=== PATIENT | female | born 1945 | race Caucasian/White ===

== ENCOUNTER 2018-01-05 21:38 | Emergency (ER) | payer MEDICARE ==
[~2018-01-05] VITALS: Ht 165.1 cm; Wt 87.1 kg
[~2018-01-05 21:38] MED LIST: BACTRIM DS TAB1 EACH PO; HYDROCHLOROTHIA25 MG PO; LISINOPRIL40 MG PO; MELOXICAM15 MG PO; METOPROLOL TART25 MG PO; NEXIUM40 MG PO; NORVASC10 MG PO; PANTOPRAZOLE SO40 MG PO; PRAVASTATIN SOD20 MG
[2018-01-05] MEDS ORDERED: ACETAMINOPHEN 325 MG TAB PO ONE (22:00)
--- NOTE | 2018-01-05 23:05 | Diagnostic Imaging Report ---
Examination: CT BRAIN WITHOUT CONTRAST History:Headache. Comparison studies:None Technique: Axial images were obtained from the skull base to the vertex. Coronal and sagittal images reconstructed from the axial data. Intravenous contrast: None Findings: Scalp: No abnormalities. Bones: No fractures, blastic or lytic lesions. Brain sulci: Appropriate for age. Ventricles: Normal in size and configuration. No hydrocephalus. Extra-axial space: No abnormalities. Parenchyma: No masses, hemorrhage, or acute or chronic cortical based vascular insults. Sellar/suprasellar region: No abnormalities. Craniocervical junction: Patent foramen magnum. No Chiari one malformation. Incidental findings: None. Impression: No intracranial abnormalities. Signed by: Dr. Shanna Pierce M.D. on 01/05/2018 11:02 PM
[2018-01-05 23:27] VITALS: BP 139/87
== END 2018-01-05 23:37 | disposition home or self-care (01) ==
LOC: ER 21:38
DX: G44.1 Vascular headache, not elsewhere classified (principal); I10 Essential (primary) hypertension; M19.90 Unspecified osteoarthritis, unspecified site; I49.1 Atrial premature depolarization; K21.0 Gastro-esophageal reflux disease with esophagitis
CPT/HCPCS: 70450; 93005; 99284

== ENCOUNTER 2018-04-22 22:29 | Observation (INO) | payer MEDICARE ==
[~2018-04-22] VITALS: Ht 165.1 cm; Wt 85.9 kg
[2018-04-22 22:59] LABS: BASOPHILS # (AUTO) 0.1 (0.0-0.1); BASOPHILS % 0.6 % (0.0-1.0); EOSINOPHILS # (AUTO) 0.2 (0.0-0.4); EOSINOPHILS % 2.4 % (0.0-6.0); HEMATOCRIT 35.7 % (34.2-44.1); HEMOGLOBIN 11.9 g/dL (12.0-16.0); LYMPHOCYTES # (AUTO) 4.1 (1.0-3.2); LYMPHOCYTES % 41.6 % (18.0-39.1); MEAN CORPUSCULAR HEMOGLOBIN 29.2 pg (28-32); MEAN CORPUSCULAR HGB CONC 33.3 g/dL (31-35); MEAN CORPUSCULAR VOLUME 87.7 fL (81-99); MONOCYTES # (AUTO) 0.9 (0.2-0.8); MONOCYTES % 8.6 % (4.4-11.3); NEUTROPHILS # (AUTO) 4.6 (2.1-6.9); NEUTROPHILS % 46.3 % (38.7-80.0); PLATELET COUNT 265 x10e3/uL (140-360); RED BLOOD COUNT 4.07 x10e6/uL (3.6-5.1); RED CELL DISTRIBUTION WIDTH 13.2 % (11.7-14.4)
[2018-04-22 23:10] LABS: INR 1.07; PROTHROMBIN TIME 13.1 seconds (11.9-14.5)
[2018-04-22 23:11] LABS: PARTIAL THROMBOPLASTIN TIME 33.9 seconds (23.8-35.5)
[2018-04-22 23:17] LABS: CLARITY,URINE CLEAR (CLEAR); COLOR,URINE YELLOW (YELLOW); LEUKOCYTE ESTERASE ,URINE 1+ (NEGATIVE); NITRITE,URINE NEGATIVE (NEGATIVE); PROTEIN,URINE DIPSTICK NEGATIVE (NEGATIVE)
[2018-04-22 23:18] LABS: BILIRUBIN,URINE NEGATIVE (NEGATIVE); KETONES,URINE NEGATIVE (NEGATIVE); URINE UROBILINOGEN 0.2 mg/dL (0.2 - 1)
[2018-04-22 23:19] LABS: ALANINE AMINOTRANSFERASE 16 IU/L (0-55); ALBUMIN 4.2 g/dL (3.5-5.0); ALBUMIN/GLOBULIN RATIO 1.2 (0.8-2.0); ALKALINE PHOSPHATASE 82 IU/L (40-150); BLOOD UREA NITROGEN 28 mg/dL (7-26); BUN/CREATININE RATIO 22 (6-25); CALCIUM 9.6 mg/dL (8.4-10.2); CARBON DIOXIDE 23 mmol/L (22-29); CHLORIDE 100 mmol/L (98-107); CREATINE KINASE 94 IU/L (29-168); CREATININE, SERUM 1.28 mg/dL (0.57-1.11); EST GLOMERULAR FILTRATION RATE 41 ML/MIN (60-); GLUCOSE 132 mg/dL (74-118); MAGNESIUM 2.2 MG/DL (1.3-2.1); SODIUM 136 mmol/L (136-145)
[2018-04-22 23:28] LABS: BACTERIA,URINE RARE /HPF; EPITHELIAL CELLS,URINE RARE /LPF; RBC,URINE 0-5 /HPF (0-5); TRANSITIONAL EPI CELLS,URINE FEW
--- NOTE | 2018-04-22 23:39 | Diagnostic Imaging Report ---
CHEST 2 VIEWS, Technique: CHEST 2 VIEWS Comparison: None Clinical history: Chest pain DISCUSSION: PA view is overpenetrated with motion artifact limiting assessment. Cardiac silhouette is normal. Left apical pleural-parenchymal scarring. No consolidation or edema. No pleural effusion or pneumothorax. IMPRESSION: No acute abnormality Signed by: Dr Seda Henry MD on 04/22/2018 11:36 PM
[2018-04-22] MEDS ORDERED: AMLODIPINE BESY10 MG PO (23:54)
[2018-04-22] MEDS ORDERED: PRAVASTATIN SOD40 MG PO (23:54)
[2018-04-22] MEDS ORDERED: CLONIDINE HCL0.1 MG PO (23:54)
[2018-04-22] MEDS ORDERED: TERBINAFINE HC250 MG PO (23:54)
[2018-04-22] MEDS ORDERED: METOPROLOL TART50 MG PO (23:54)
[2018-04-22] MEDS ORDERED: ALPRAZOLAM0.5 MG PO (23:54)
[2018-04-23] VITALS (10 sets, daily range): BP systolic 130–191; BP diastolic 62–87
[2018-04-23] MEDS ORDERED: NITROGLYCERIN 2% OINT 1 GM PKT ONE (00:04)
[2018-04-23] MEDS: NITROGLYCERIN 2% OINT 1 GM PKT TOP SCH ×4 (00:07→18:00)
[2018-04-23] MEDS ORDERED: ONDANSETRON HCL INJ 2 MG/ML VIAL IV PRN (00:15)
[2018-04-23] MEDS ORDERED: FAMOTIDINE 20 MG/2 ML VIAL IV SCH ×2 (00:15→09:00)
[2018-04-23] MEDS ORDERED: MORPHINE SULFATE 2 MG/ML SYR IV PRN (00:15)
[2018-04-23 06:57] LABS: BASOPHILS # (AUTO) 0.1 (0.0-0.1); BASOPHILS % 0.6 % (0.0-1.0); EOSINOPHILS # (AUTO) 0.1 (0.0-0.4); EOSINOPHILS % 1.6 % (0.0-6.0); HEMATOCRIT 35.3 % (34.2-44.1); HEMOGLOBIN 11.6 g/dL (12.0-16.0); LYMPHOCYTES # (AUTO) 2.6 (1.0-3.2); LYMPHOCYTES % 30.4 % (18.0-39.1); MEAN CORPUSCULAR HEMOGLOBIN 28.9 pg (28-32); MEAN CORPUSCULAR HGB CONC 32.9 g/dL (31-35); MONOCYTES # (AUTO) 0.7 (0.2-0.8); MONOCYTES % 7.9 % (4.4-11.3); NEUTROPHILS # (AUTO) 5.1 (2.1-6.9); NEUTROPHILS % 59.2 % (38.7-80.0); PLATELET COUNT 251 x10e3/uL (140-360); RED BLOOD COUNT 4.01 x10e6/uL (3.6-5.1); RED CELL DISTRIBUTION WIDTH 13.2 % (11.7-14.4)
[2018-04-23 07:21] LABS: CREATINE KINASE MB 1.1 ng/mL (0-5.0)
[2018-04-23 08:02] LABS: ALBUMIN 3.7 g/dL (3.5-5.0); ALBUMIN/GLOBULIN RATIO 1.2 (0.8-2.0); ANION GAP 12.1 mmol/L (8-16); CALCIUM 9.6 mg/dL (8.4-10.2); CREATININE, SERUM 0.96 mg/dL (0.57-1.11); POTASSIUM 4.1 mmol/L (3.5-5.1)
[2018-04-23] MEDS: ASPIRIN 81 MG ENTERIC COATED PO SCH (09:58)
[2018-04-23] MEDS: LEVOFLOXACIN 250 MG TAB PO SCH (12:04)
[2018-04-23] MEDS: CLONIDINE HCL 0.1 MG TAB PO PRN ×2 (12:10→20:16)
--- NOTE | 2018-04-23 12:41 | History and Physical ---
Patient of , Dr. Lizarraga. HISTORY: Unfortunate 72-year-old woman admitted with chest pain, similar but worse than the pain she had 4 years ago. She felt flushed. The pain was across the precordium and was felt tight. Blood pressure is moderately elevated on arrival to the emergency room at 170, even after she took clonidine. History of hyperlipidemia. History of coccygectomy, history of nocturnal hypertension. 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 MEDICATIONS: Include Xanax, amlodipine, Lopressor, clonidine, Pravachol, Lamisil. Pain occurred at work, approximately 9:30 in the evening and was taken by EMS to the ER. History of hypertension, gastroesophageal reflux, urgency, incontinence, anxiety. ALLERGIES: TO PENICILLIN. PHYSICAL EXAMINATION VITAL SIGNS: Temperature 96.4, pulse 55, respirations 18, blood pressure 139/70. HEENT: Head: Normocephalic, atraumatic. Eyes: Extraocular movements are intact. LUNGS: Clear. HEART: Regular rhythm. She has also been nontender. EXTREMITIES: Nonedematous. There is suggestion of urinary tract infection, atypical angina-like chest pain. Will request cardiology re-evaluation. Patient apparently has had stress test in the past, but this was some 4 years ago. Thank you for this kind referral. Job#: [id number] TA cc:DR. LIZARRAGA
--- NOTE | 2018-04-23 14:13 | Consultation ---
DATE OF CONSULTATION: April 23, 2018 CARDIOLOGY CONSULTATION Thank you, Dr. Snow, for this consultation. I am quite familiar with Daisha through her admission to this hospital 4 years ago, but I have not seen her since that time. According to her, she was healthy except the time she was admitted to [facility] from different problems. Patient at this time does not have chest pain. She admitted because yesterday was at [facility] 9:30 p.m., she had some substernal pain, but after coming into the hospital patient's chest pain completely disappeared. Patient has history of hiatal hernia and also hypertension, still mildly obese. She was taking Norvasc and lisinopril at home. Patient never had history of myocardial infarction. Four years ago coronary angiogram did not show significant lesions. Patient did not have any stroke or heart attack. Nonsmoker, no history of lung problems. No abdominal surgeries. Only surgery, she got surgery in the coccyx bone. PATIENT HAS NO SIGNIFICANT ALLERGIES, ALSO. At this time blood pressure is about 160/85 mmHg, and clinically patient is very stable. The plan at this time is to keep her today. If she has no chest pain, blood pressure is fairly well controlled less than 140/90, patient will be discharged tomorrow; but if there is any recurrent chest pain, probably will have to keep her in the hospital. If she goes home tomorrow, will do a stress test as an outpatient at [facility] either Thursday or Thursday that I also discussed with her. IMPRESSION 1. Chest pain, rule out ischemic heart disease. 2. Hypertension. 3. Patient is stable at this time. Four years ago coronary angiogram did not show significant lesions. PLAN: At this time keep her on observation and no chest pain. Enzymes are normal, which are normal so far. EKG is also normal, and echo ejection fraction 65% and no evidence of pericardial effusion, pericarditis. Patient will be discharged tomorrow, will bring back as an outpatient for stress test. Job#: [id number] APARNA
[2018-04-23] MEDS: METOPROLOL TARTRATE 50 MG TAB PO SCH (17:55)
[2018-04-23] MEDS: FAMOTIDINE 20 MG TAB PO SCH (17:56)
--- NOTE | 2018-04-23 18:33 | Diagnostic Imaging Report ---
PROCEDURE:US ABDOMEN LIMITED COMPARISON:None. INDICATIONS:EVALUATE GB TECHNIQUE: Garza-scale and color Doppler transverse and longitudinal images of the right upper quadrant of the abdomen were obtained. FINDINGS: Liver: 17.7 cm in right mid-clavicular line, enlarged. Normal echogenicity. No masses. Main portal vein: 1.1 cm, normal in size. Hepatopetal flow. Gallbladder: Wall measures 0.2 cm, normal. No stones or sludge. Common Bile Duct: 0.2 cm, normal Sonographic Bowman's sign: Negative Right kidney: 11.2 cm. Normal echogenicity. No solid masses or hydronephrosis. Interpolar 1.1 x 1.2 x 1.1 cm anechoic cyst with a single thin septation. Pancreas: The visualized portions are unremarkable. Inferior vena cava: Patent Aorta: Within normal limits Ascites: None in the right upper quadrant of the abdomen. CONCLUSION: No evidence of cholelithiasis or cholecystitis. Hepatomegaly. Minimally complex cyst in the right kidney. Dictated by: Piyush Ha M.D. on 04/23/2018 at 18:38 Electronically approved by: Piyush Ha M.D. on 04/23/2018 at 18:38
[2018-04-23] MEDS: SIMVASTATIN 20 MG TAB PO SCH (20:16)
[2018-04-23] MEDS: ENOXAPARIN INJ 80 MG/0.8 ML SYR SC SCH (20:16)
[2018-04-23] MEDS ORDERED: NON-FORMULARY MEDICATION (Pravastatin Sodium 40 MG) PO SCH (21:00)
[2018-04-23] MEDS: ALPRAZOLAM 0.5 MG TAB PO PRN (23:06)
[2018-04-24] VITALS (9 sets, daily range): BP systolic 118–196; BP diastolic 58–83
[2018-04-24] MEDS: NITROGLYCERIN 2% OINT 1 GM PKT TOP SCH ×4 (05:13→18:00)
[2018-04-24 05:44] LABS: CHOL/HDL RATIO 3.5 (3.0-3.6)
[2018-04-24] MEDS: FAMOTIDINE 20 MG TAB PO SCH ×2 (08:12→17:10)
[2018-04-24] MEDS: TERBINAFINE 250 MG TAB PO SCH (08:12)
[2018-04-24] MEDS: ASPIRIN 81 MG ENTERIC COATED PO SCH (08:12)
[2018-04-24] MEDS: LEVOFLOXACIN 250 MG TAB PO SCH (08:12)
[2018-04-24] MEDS: ENOXAPARIN INJ 80 MG/0.8 ML SYR SC SCH (08:13)
[2018-04-24] MEDS: AMLODIPINE BESYLATE 10 MG TAB PO SCH (08:13)
[2018-04-24] MEDS: METOPROLOL TARTRATE 50 MG TAB PO SCH ×2 (08:14→16:13)
[2018-04-24] MEDS: CLONIDINE HCL 0.1 MG TAB PO PRN ×2 (11:40→22:19)
[2018-04-24] MEDS: SIMVASTATIN 20 MG TAB PO SCH (21:11)
[2018-04-24] MEDS: ALPRAZOLAM 0.5 MG TAB PO PRN (22:36)
[2018-04-25] VITALS (8 sets, daily range): BP systolic 128–171; BP diastolic 61–78
[2018-04-25] MEDS: NITROGLYCERIN 2% OINT 1 GM PKT TOP SCH ×3 (06:00→11:27)
[2018-04-25] MEDS: CLONIDINE HCL 0.1 MG TAB PO PRN (06:56)
[2018-04-25] MEDS: AMLODIPINE BESYLATE 10 MG TAB PO SCH (08:39)
[2018-04-25] MEDS: TERBINAFINE 250 MG TAB PO SCH (08:39)
[2018-04-25] MEDS: FAMOTIDINE 20 MG TAB PO SCH ×2 (08:39→16:30)
[2018-04-25] MEDS: ASPIRIN 81 MG ENTERIC COATED PO SCH (08:39)
[2018-04-25] MEDS: LEVOFLOXACIN 250 MG TAB PO SCH (08:39)
[2018-04-25] MEDS: METOPROLOL TARTRATE 50 MG TAB PO SCH ×2 (08:45→17:00)
[2018-04-25] MEDS ORDERED: LISINOPRIL10 MG PO (11:17)
--- NOTE | 2018-04-25 13:33 | Progress Note ---
DATE: April 25, 2018 CARDIOLOGY PROGRESS NOTE ADMITTING PHYSICIAN: Dr. Dave Asif. Patient has no chest pain, but patient was brought in from work with chest pain. Patient has some history of CAD in the past, hypertension, BP still not controlled. Patient is going to have coronary angiogram tomorrow. Troponins are normal. EKG does not have ischemic changes. Clinical symptoms are previous history of CAD, a good indication that patient may have significant coronary artery disease. At this time I am not doing a stress test because she had chest pain at rest when she came to the hospital and the patient at this time is also on aspirin and anticholesterol medications and antihypertensive medications. Discussed with her the risks and complications of coronary angiogram. Patient agrees, wants to have it done tomorrow and also coronary intervention if necessary. Job#: [id number] EV
[2018-04-25] MEDS ORDERED: ALPRAZOLAM 0.5 MG TAB PO ONE (14:00)
[2018-04-25] MEDS: SIMVASTATIN 20 MG TAB PO SCH (21:09)
[2018-04-25] MEDS: ALPRAZOLAM 0.5 MG TAB PO PRN (22:25)
[2018-04-26] VITALS (9 sets, daily range): BP systolic 135–198; BP diastolic 68–87
[2018-04-26] MEDS: NITROGLYCERIN 2% OINT 1 GM PKT TOP SCH ×3 (00:04→11:32)
[2018-04-26 04:48] LABS: BASOPHILS % 0.5 % (0.0-1.0); EOSINOPHILS # (AUTO) 0.2 (0.0-0.4); EOSINOPHILS % 2.2 % (0.0-6.0); HEMATOCRIT 35.4 % (34.2-44.1); HEMOGLOBIN 11.5 g/dL (12.0-16.0); LYMPHOCYTES # (AUTO) 3.1 (1.0-3.2); LYMPHOCYTES % 42.4 % (18.0-39.1); MEAN CORPUSCULAR HEMOGLOBIN 28.8 pg (28-32); MEAN CORPUSCULAR HGB CONC 32.5 g/dL (31-35); MEAN CORPUSCULAR VOLUME 88.5 fL (81-99); MONOCYTES # (AUTO) 0.7 (0.2-0.8); MONOCYTES % 9.5 % (4.4-11.3); NEUTROPHILS # (AUTO) 3.3 (2.1-6.9); PLATELET COUNT 258 x10e3/uL (140-360); RED CELL DISTRIBUTION WIDTH 13.2 % (11.7-14.4)
[2018-04-26 05:05] LABS: ANION GAP 13.3 mmol/L (8-16); CALCIUM 9.7 mg/dL (8.4-10.2); CREATININE, SERUM 1.09 mg/dL (0.57-1.11); POTASSIUM 4.3 mmol/L (3.5-5.1)
[2018-04-26] MEDS: FAMOTIDINE 20 MG TAB PO SCH ×2 (07:30→15:55)
[2018-04-26] MEDS ORDERED: LISINOPRIL 20 MG TAB PO SCH ×2 (09:00→16:00)
[2018-04-26] MEDS: LEVOFLOXACIN 250 MG TAB PO SCH ×2 (09:00→15:56)
[2018-04-26] MEDS: ASPIRIN 81 MG ENTERIC COATED PO SCH (09:00)
[2018-04-26] MEDS: AMLODIPINE BESYLATE 10 MG TAB PO SCH ×2 (09:00→15:56)
[2018-04-26] MEDS: METOPROLOL TARTRATE 50 MG TAB PO SCH ×2 (09:00→15:56)
[2018-04-26] MEDS: TERBINAFINE 250 MG TAB PO SCH ×2 (09:00→15:56)
[2018-04-26] MEDS ORDERED: REGADENOSON 0.4 MG/5 ML SYR IV ONE (10:55)
[2018-04-26] MEDS ORDERED: METOPROLOL TART25 MG PO (15:26)
[2018-04-26] MEDS: ALPRAZOLAM 0.5 MG TAB PO PRN (16:48)
--- NOTE | 2018-04-26 23:02 | Progress Note ---
DATE: April 26, 2018 CARDIOLOGY PROGRESS NOTE Patient is doing well. Patient underwent Lexiscan stress test today and is found to be negative. Patient denies any chest pain or any problems. Blood pressure a little higher about 150/90. However, patient is ambulatory without any cardiac complaints. Patient will be discharged with antihypertensive medication, aspirin, anticholesterol medication. Patient not in congestive heart failure. Echo EF 60%. Patient is to go home with 1. Aspirin 81 mg once a day. 2. Statin. 3. Metoprolol tartrate 25 mg b.i.d. 4. Norvasc 10 mg once a day. 5. Lisinopril 40 mg once a day. The patient is to follow with me in 1 week from now on, also follow with Dr. Snow and if any cardiac problem, he can call me or Dr. Snow. Patient advised low-fat, low-salt diet, moderate physical activities. Patient discharged in stable condition. IMPRESSIONS 1. Chest pain. 2. Negative Lexiscan stress test. History of mild coronary artery disease in the past. 3. Hypertension. 4. Hyperlipidemia. 5. Mild obesity. \T\Patient, at this time, in stable condition. Job#: [id number] CQ
--- NOTE | 2018-04-26 23:07 | Cardiology Report ---
DATE OF STUDY: April 26, 2018 NUCLEAR GATED MYOCARDIAL PERFUSION SCAN WITH LEXISCAN Lexiscan injected 0.4 mg intravenously as stress agent, and Myoview injected 10 mCi for resting protocol, 30 mCi for stress protocol. Patient did not have any chest pain. No EKG changes. Patient's nuclear stress test showed normal perfusion, left ventricular ejection fraction 65%. No evidence of ischemia or scar noted. IMPRESSION: Normal study. No ischemia or scar noted. Left ventricular ejection fraction 65%. Job#: [id number]
== END 2018-04-26 19:28 | disposition home or self-care (01) ==
LOC: ER 22:29 → ERHOLD 04-23 00:08 → IMCU 04-23 00:54 → MED/SURG 04-25 14:27
PROVIDERS: ADMIT Internal Medicine Pulmonary Disease; ATTEND Internal Medicine Pulmonary Disease
DX: R07.89 Other chest pain (principal); I10 Essential (primary) hypertension; K21.9 Gastro-esophageal reflux disease without esophagitis; E78.5 Hyperlipidemia, unspecified; E66.9 Obesity, unspecified; K44.9 Diaphragmatic hernia without obstruction or gangrene; Z88.6 Allergy status to analgesic agent; Z88.1 Allergy status to other antibiotic agents; Z88.0 Allergy status to penicillin; Z88.8 Allergy status to other drugs, medicaments and biological substances; Z68.31 Body mass index [BMI] 31.0-31.9, adult
CPT/HCPCS: 36415 ×4; 71046; 76705; 78452; 80048; 80053 ×2; 80061; 81001; 82550 ×2; 82553 ×2; 83735; 83880; 84484 ×2; 85025 ×3; 85610; 85730; 87086; 93005; 93017; 93306; 99284; A9502; G0378 ×4; J1650 ×2

== ENCOUNTER 2018-05-01 22:22 | Emergency (ER) | payer MEDICARE ==
[~2018-05-01] VITALS: Ht 165.1 cm; Wt 85.7 kg
[~2018-05-01 22:22] MED LIST changes: +ALPRAZOLAM0.5 MG PO; +AMLODIPINE BESY10 MG PO; +CLONIDINE HCL0.1 MG PO; +LISINOPRIL10 MG PO; +METOPROLOL TART50 MG PO; +PRAVASTATIN SOD40 MG PO; +TERBINAFINE HC250 MG PO
[2018-05-01] MEDS ORDERED: ASPIRIN 325 MG TAB PO STA (22:44)
[2018-05-01 23:46] LABS: BASOPHILS # (AUTO) 0.1 (0.0-0.1); BASOPHILS % 0.6 % (0.0-1.0); EOSINOPHILS # (AUTO) 0.3 (0.0-0.4); EOSINOPHILS % 3.2 % (0.0-6.0); HEMATOCRIT 36.1 % (34.2-44.1); HEMOGLOBIN 11.8 g/dL (12.0-16.0); LYMPHOCYTES # (AUTO) 2.6 (1.0-3.2); LYMPHOCYTES % 32.7 % (18.0-39.1); MEAN CORPUSCULAR HGB CONC 32.7 g/dL (31-35); MEAN CORPUSCULAR VOLUME 88.7 fL (81-99); MONOCYTES # (AUTO) 0.8 (0.2-0.8); MONOCYTES % 9.3 % (4.4-11.3); NEUTROPHILS # (AUTO) 4.3 (2.1-6.9); NEUTROPHILS % 53.7 % (38.7-80.0); PLATELET COUNT 269 x10e3/uL (140-360); RED BLOOD COUNT 4.07 x10e6/uL (3.6-5.1); RED CELL DISTRIBUTION WIDTH 13.3 % (11.7-14.4)
[2018-05-01 23:50] LABS: INR 1.07; PROTHROMBIN TIME 13.1 seconds (11.9-14.5)
[2018-05-01 23:55] LABS: CLARITY,URINE CLOUDY (CLEAR); COLOR,URINE YELLOW (YELLOW)
[2018-05-01 23:56] LABS: BILIRUBIN,URINE NEGATIVE (NEGATIVE); KETONES,URINE NEGATIVE (NEGATIVE); LEUKOCYTE ESTERASE ,URINE NEGATIVE (NEGATIVE); NITRITE,URINE NEGATIVE (NEGATIVE); PROTEIN,URINE DIPSTICK NEGATIVE (NEGATIVE); URINE UROBILINOGEN 0.2 mg/dL (0.2 - 1)
[2018-05-01 23:57] LABS: ALBUMIN 4.3 g/dL (3.5-5.0); ALBUMIN/GLOBULIN RATIO 1.2 (0.8-2.0); ANION GAP 17.7 mmol/L (8-16); CALCIUM 10.3 mg/dL (8.4-10.2); CREATININE, SERUM 1.41 mg/dL (0.57-1.11); POTASSIUM 4.7 mmol/L (3.5-5.1)
[2018-05-01 23:58] LABS: EPITHELIAL CELLS,URINE FEW /LPF; RBC,URINE 0-5 /HPF (0-5); WBC,URINE (MAN) 0-5 /HPF (0-5)
[2018-05-02 00:04] LABS: CREATINE KINASE MB 1.3 ng/mL (0-5.0)
--- NOTE | 2018-05-02 00:06 | Diagnostic Imaging Report ---
EXAM: CHEST SINGLE (PORTABLE), AP 1 view INDICATION: Hypertension COMPARISON: PA and lateral view of the chest April 22, 2018 FINDINGS: LINES/TUBES: None LUNGS: No consolidations or edema. PLEURA: No effusions or pneumothorax. HEART AND MEDIASTINUM: Normal size and contour. BONES AND SOFT TISSUES: No acute findings. IMPRESSION: No acute thoracic abnormality. Signed by: Dr. Radha Levi M.D. on 05/02/2018 12:03 AM
== END 2018-05-02 01:20 | disposition home or self-care (01) ==
LOC: ER 22:22
DX: R00.2 Palpitations (principal); N28.9 Disorder of kidney and ureter, unspecified; I10 Essential (primary) hypertension; E78.5 Hyperlipidemia, unspecified; K21.9 Gastro-esophageal reflux disease without esophagitis
CPT/HCPCS: 36415; 71045; 80053; 81001; 82550; 82553; 83735; 84443; 84484; 85025; 85610; 85730; 93005; 99284

== ENCOUNTER 2020-03-03 08:37 | Observation (INO) | payer MEDICARE ==
[~2020-03-03] VITALS: Ht 167.6 cm; Wt 85.7 kg
--- NOTE | 2020-03-03 08:40 | NUR ---
{null, PT STATES NEEDING TO CALL HER SON TO NOTIFY HIM OF ARRIVAL TO ER. PT CELL FOUND FOR HER TO CALL HER SON... }
--- OUTSIDE RECORDS SUMMARY | 2020-03-03 08:40 | XMS REPORT | Encounter Summary ---
Author Organization Unknown Address [address] [place] [address] Phone [phone] Care Team Providers Care Dish Carrier Name Role Phone Dr. Micky Ness 3 [phone] Kurtis Silva MD 82 [phone] Helena Bonilla MD 118 [phone] Reason for Visit Left hip pain/problem Instructions 1. Trochanteric bursitis of left hip Medrol (Edson) 4 mg tablets in a dose pa ck meloxicam 15 mg tablet hydrocodone 5 mg-acetaminophen 325 mg tablet 2. At risk for falls preventing falls: care instructions 3. Depression screening learning about depression 4. Hyperlipidemia pravastatin 40 mg tablet high cholesterol: care instructions 5. Postmenopausal state bone density - PLEASE CALL PATIENT AND SCHUEDLE HER AN APPOINTMENT. PLEASE FAX RESULTS TO [phone]. 6. Body mass index 30+ - obesity starting a weight loss plan: care inst ructions abnormal weight gain: care instruction s advised to lose weight learning about healthy weight body mass index: care instructions Discussion Note: None recorded. Plan of Care Reminders Provider Appointments None recorded. Lab None recorded. Referral None recorded. Procedures None recorded. Surgeries None recorded. Imaging Bone Density 11/17/2018 [facility] Medications Name Start Date amlodipine 10 mg tablet Take 0.5 tablets twice a day by oral route in the evening for 30 days. desonide 0.05 % topical cream APPLY SPARINGLY AND RUB GENTLY INTO THE AFFECTED AREA(S) BY TOPICAL ROUTE 2 TIMES PER DAY NEEDED hydrocodone 5 mg-acetaminophen 325 mg ta blet Take 1 tablet every day by oral route as needed for 7 days. lisinopril 20 mg tablet Take 0.5 tablets twice a day by oral route as directed for 30 days. Low Dose Aspirin 81 mg tablet,delayed re lease Take 1 tablet every day by oral route. Medrol (Edson) 4 mg tablets in a dose pack Take 1 dose pk by oral route. meloxicam 15 mg tablet Take 1 tablet every day by oral route as needed for 30 days. metoprolol tartrate 25 mg tablet Take 0.5 tablets twice a day by oral route as directed for 30 days. pravastatin 40 mg tablet TAKE ONE (1) TABLET(S) BY MOUTH IN THE EVENING. Medications Administered None recorded. Vitals Height Weight BMI Blood Pressure 5 ft 5 in 186 lbs 31 kg/m2 130/70 mm[Hg] Lab Results None recorded. Allergies Code Code System Name Reaction Severity Status Onset RxNorm Azithromycin Active 012 6809 RxNorm Metformin Active 02/27/2012 Penicillins Active Problems Name Status Onset Date Source Pure Hypercholesterolemia Active 05/21/2016 Body Mass Index 30+ - Obesity Active 05/21/2016 Benign Essential Hypertension Active 05/21/2016 Hyperglycemia Active 05/21/2016 Serum Creatinine Raised Active 05/21/2016 Mixed Hyperlipidemia Active 10/08/2016 Gastroesophageal Reflux Disease without Esophagitis Active 10/08/2016 Knee Pain Active 10/08/2016 Blood Chemistry Abnormal Active 10/29/2016 Prediabetes Active 03/31/2018 Hypertensive Disorder Active Chest Pain Active Procedures Date Name Performed by 07/01/2010 Colonoscopy Information not avai lable 10/27/2018 XR, Hip, Unilateral, 2 or 3 View [facility] [address] [place] [address] (Work Place) 11/17/2018 Bone Density [facility] [address] [place] [address] (Work Place) Vaccine List Vaccine Type influenza, high dose seasonal 08/10/20180.5 mL pneumococcal conjugate PCV 13 10/29/20160.5 mL pneumococcal polysaccharide PPV23 04/13/20180.5 mL Social History Smoking Status Never Smoker Past Encounters 11/17/2018 Trochanteric Bursitis of Left Hip; At Risk for Falls; Depression Screening; Hyperlipidemia; Postmenopausal State; Body Mass Index 30+ - Obesity Micky Bowen MD: [address] [place] [address], Ph. 10/27/2018 Pain of Left Hip Joint; Pain in Right Arm; Body Mass Index 30+ - Obesity; Secondary Hyperparathyroidism Micky Bowen MD: [address] [place] [address], Ph. History of Present Illness Note:Coming for f/u. Pain in left hip persists, intensity 5/10. Sharp type. Denies problems with ROM. Worse with sitting for long periods of time. X-ray showed mild joint space narrowing.
Review of Systems Comprehensive General Adult ROS Reported By: Patient Constitutional: Constitutional: no fever Cardiovascular: Cardiovascular: no chest jamari n Respiratory: Respiratory: no cough, no wh eezing, no shortness of breath Gastrointestinal: Gastrointestinal: no abdomin al pain Musculoskeletal: Musculoskeletal: no swelling in the extremities, muscle aches, arthralgias/joint pain Neurologic: Neurologic: no loss of consc iousness, no headaches Physical Exam General Adult Exam (male) Reported By: Patient Constitutional: General Appearance: healthy- appearing, obese. Level of Distress: NAD. Ambulation: ambulating normally Psychiatric: Insight: good judgement. Men vasquez Status: active and alert, normal mood, normal affect. Orientation: to time, to place, to person. Memory: recent memory normal, remote memory normal Eyes: Lids and Conjunctivae: non-i njected, no discharge Neck: Neck: trachea midline Lungs: Respiratory effort: no dyspn ea Musculoskeletal:: Motor Strength and Tone: nor mal, normal tone. Joints, Bones, and Muscles: normal movement of all extremities. Extremities: no edema Neurologic: Gait and Station: normal gai t Skin: Inspection and palpation: ; L HIP: tender with palpation at the level of the greater trochanter. Normal ROM. No deformities or crepitations
--- OUTSIDE RECORDS SUMMARY | 2020-03-03 08:40 | XMS REPORT | Encounter Summary ---
Author Organization Unknown Address [address] [place] [address] Phone [phone] Care Team Providers Care Integrity Manager Name Role Phone Dr. Micky Ness 3 [phone] Micky Baca MD 3 [phone] Helena Bonilla MD 118 [phone] Reason for Visit Left hip pain/problem Instructions 1. Pain of left hip joint XR, hip, unilateral, 2 or 3 view meloxicam 15 mg tablet hydrocodone 5 mg-acetaminophen 325 mg tablet ketorolac 60 mg/2 mL intramuscular amanda ution 2. Pain in right arm 3. Body mass index 30+ - obesity body mass index: care instructions learning about healthy weight 4. Secondary hyperparathyroidism Discussion Note: None recorded. Plan of Care Reminders Provider Appointments Est Patient 11/03/2018 11:00AM Micky Bowen MD Lab None recorded. Referral None recorded. Procedures None recorded. Surgeries None recorded. Imaging XR, Hip, Unilateral, 2 or 3 View 10/27/2018 [facility] Medications Name Start Date amlodipine 10 mg tablet Take 0.5 tablets twice a day by oral route in the evening for 30 days. citalopram 10 mg tablet Take 1 tablet every day by oral route as directed for 30 days. desonide 0.05 % topical cream APPLY SPARINGLY AND RUB GENTLY INTO THE AFFECTED AREA(S) BY TOPICAL ROUTE 2 TIMES PER DAY NEEDED hydrochlorothiazide 12.5 mg tablet hydrocodone 5 mg-acetaminophen 325 mg ta blet Take 1 tablet every day by oral route as needed for 7 days. lisinopril 20 mg tablet Take 0.5 tablets twice a day by oral route as directed for 30 days. Low Dose Aspirin 81 mg tablet,delayed re lease Take 1 tablet every day by oral route. meloxicam 15 mg tablet Take 1 tablet every day by oral route as needed for 30 days. metoprolol tartrate 25 mg tablet Take 0.5 tablets twice a day by oral route as directed for 30 days. pantoprazole 40 mg tablet,delayed releas e TAKE ONE (1) TABLET(S) BY MOUTH ONCE A DAY. pravastatin 40 mg tablet TAKE ONE (1) TABLET(S) BY MOUTH IN THE EVENING. Medications Administered None recorded. Vitals Height Weight BMI Blood Pressure 5 ft 5 in 183.8 lbs 30.6 kg/m2 130/68 mm[Hg] Lab Results None recorded. Allergies Code [...] XR, Hip, Unilateral, 2 or 3 View [facility] [address] [place] [address] (Work Place) Vaccine List Vaccine Type influenza, high dose seasonal 08/10/20180.5 mL pneumococcal conjugate PCV 13 10/29/20160.5 mL pneumococcal polysaccharide PPV23 04/13/20180.5 mL Social History Smoking Status Never Smoker Past Encounters 10/27/2018 Pain of Left Hip Joint; Pain in Right Arm; Body Mass Index 30+ - Obesity; Secondary Hyperparathyroidism Micky Bowen MD: [address] [place] [address], Ph. History of Present Illness Note:Pain in the L hip and R forearm since yesterday. Trigger: pt slipped and fell down yesterday. Intensity: 7/10. Concomitantly, bruises. Denies problems with ROM. Review of Systems Comprehensive General Adult ROS Reported By: Patient Constitutional: Constitutional: no fever Eyes: Eyes: no vision change Cardiovascular: Cardiovascular: no chest jamari n Respiratory: Respiratory: no cough, no wh eezing, no shortness of breath Gastrointestinal: Gastrointestinal: no abdomin al pain Musculoskeletal: Musculoskeletal: no swelling in the extremities, muscle aches Neurologic: Neurologic: no loss of consc iousness, [...] no discharge Neck: Neck: trachea midline Lungs: Auscultation: breath sounds normal Cardiovascular: Heart Auscultation: RRR, nor mal S1, normal S2, no murmurs Musculoskeletal:: Motor Strength and Tone: nor mal, normal tone. Joints, Bones, and Muscles: normal movement of all extremities. Extremities: no edema Neurologic: Gait and Station: normal gai t Skin: Inspection and palpation: ; R FOREARM: hematoma 10 cms in diameter approximately, tender with palpation. Normal ROM.L HIP: hematoma, tender with palpation. Normal ROM. No deformities or crepitations
--- OUTSIDE RECORDS SUMMARY | 2020-03-03 08:40 | XMS REPORT | Encounter Summary ---
Author Organization Unknown Address [address] [place] [address] Phone [phone] Care Team Providers Care Coding Advisor Name Role Phone Dr. Micky Ness 3 [phone] Micky Baca MD 3 [phone] Helena Bonilla MD 118 [phone] Reason for Visit Left hip pain/problem Instructions [...] Hip, Unilateral, 2 or 3 View 10/27/2018 [facility] Medications Name Start Date amlodipine [...] [facility] [address] [place] [address] (Work Place) Vaccine List Vaccine Type influenza, high dose seasonal 08/10/20180.5 mL pneumococcal conjugate PCV 13 10/29/20160.5 mL pneumococcal polysaccharide PPV23 04/13/20180.5 mL Social History Smoking Status Never Smoker Past Encounters 10/27/2018 Pain of Left Hip Joint; Pain in Right Arm; Body Mass Index 30+ - Obesity; Secondary Hyperparathyroidism Micky Bowen MD: [address] [place] [address], Ph. History of Present Illness Note:Pain in the L hip and R forearm since yesterday. Trigger: pt slipped and fell down. Intensity: 7/10. Concomitantly, bruises. Denies problems with [...]
--- OUTSIDE RECORDS SUMMARY | 2020-03-03 08:40 | XMS REPORT | Continuity of Care Document ---
Author Author [facility] Organization [facility] Address [address] [place] [address] Phone Unavailable Care Team Providers Care Corporate Quality Manager Name Role Phone NONSTAFF PCP Unavailable Carol BARRON Attphys Unavailable HETAL WILLINGHAM Attphys Unavailable Jay SHERMAN Attphys Unavailable HETAL WILLINGHAM Admphys Unavailable Payers Payer Name Policy Type Policy Number Effective Date Expiration Date Nguyễn campbell [facility] [id number] 2016 00:00:[address] [facility] [place] [place] Medicare A & B [id number] 2008 00:00:00 [facility] Problems Condition Name Condition Details Condition Category Status Onset Date Resolution Date Last Treatment Date Treating Clinician Comments Source Prediabetes Prediabetes Problem Active 2018-03-31 00:00:00 [facility] Blood chemistry abnormal Blood Chemistry Abnormal Problem Acti ve 2016-10-29 00:00:00 [facility] Mixed hyperlipidemia Mixed Hyperlipidemia Problem [facility] Gastroesophageal reflux disease without esophagitis Ga stroesophageal Reflux Disease without Esophagitis Problem Active 2016-10-08 00:00:00 [facility] Knee pain Knee Pain Problem Active 2016-10-08 00:00:00 [facility] Pure hypercholesterolemia Pure Hypercholesterolemia Problem Ac tive 2016-05-21 00:00:00 [facility] Body mass index 30+ - obesity Body Mass Index 30+ - Obesity Problem Active 2016-05-21 00:00:00 [facility] Benign essential hypertension Benign Essential Hypertension Problem Active 2016-05-21 00:00:00 [facility] Hyperglycemia Hyperglycemia Problem Active 2016-05-21 00:00:00 [facility] Serum creatinine raised Serum Creatinine Raised Problem Active 2016-05-21 00:00:00 [facility] Malignant hypertension Problem Active 2014-05-27 00:00:[address] [facility] [place] [place] Chest pain Chest pain Problem Active [facility] Hypertension Hypertension Problem Active [facility] [place] [place] Allergies, Adverse Reactions, Alerts Allergy Name Allergy Type Status Severity Reaction(s) Onset Date Inacti ve Date Treating Clinician Comments Source Penicillins DA Active U 2019-09-22 00:00:00 [facility] Cephalosporins DA Active U 2019-09-22 00:00:00 [facility] penicillin V DA Active U 2019-09-22 00:00:00 [facility] cephalexin DA Active U 2019-09-22 00:00:00 [facility] Not Converted 80. See Text. DA Active U 2019-09-22 00:00 :00 [facility] Penicillins DA Active U 2017-05-22 00:00:00 [facility] Cephalosporins DA Active U 2017-05-22 00:00:00 [facility] penicillin V DA Active U 2017-05-22 00:00:00 [facility] cephalexin DA Active U 2017-05-22 00:00:00 [facility] Not Converted 80. See Text. DA Active U 2017-05-22 00:00 :00 [facility] .SPICES DA Active U 2017-05-22 00:00:00 [facility] CAFFEINE DA Active U 2017-05-22 00:00:00 [facility] CHOCOLATE DA Active U 2017-05-22 00:00:00 [facility] No Known Contrast Allergies DA Active U 2017-05-22 00:00: 00 [facility] No Known Other Allergies DA Active U 2017-05-22 00:00:00 [facility] Cephalexin Monohydrate Allergy to Substance Active Moderate 2012-02-27 00:00:[address] [facility] [place] [place] Penicillin Allergy to Substance Active Moderate 2012-02-27 00:00:[address] [facility] [place] [place] Ibuprofen Allergy to Substance Active Moderate 2012-02-27 00:00:[address] [facility] [place] [place] Azithromycin Allergy to Substance Active Moderate 2012-02-27 00:00 :[address] [facility] [place] [place] Metformin Allergy to Substance Active Moderate 2012-02-27 00:00:[address] [facility] [place] [place] IBUPROFEN DA Active U 2001-06-04 00:00:00 [facility] PENICILLIN DA Active U 2001-06-04 00:00:00 [facility] PENICILLINS Allergy to substance Active [facility] Levofloxacin Allergy to substance Active [facility] Metronidazole Allergy to substance Active [facility] Meloxicam Allergy to substance Active [facility] Social History Smoking Status Start Date Stop Date Source Never Smoker [facility] mary Medications Ordered Medication Name Filled Medication Name Start Date Stop Da te Current Medication? Ordering Clinician Indication Dosage Frequency Signature (SIG) Comments Components Source amlodipine 10 mg tablet Take 0.5 tablets twice a day b y oral route for 30 days. amlodipine 10 mg tablet Take 0.5 tablets twice a day by oral route for 30 days. No .5 BID amlodipine 10 mg tablet Take 0.5 tablets twice a day by oral route for 30 days. [facility] ice Bactrim DS 800 mg-160 mg tablet Take 1 t ablet every 12 hours by oral route as directed for 10 days. Bactrim DS 800 mg-160 mg tablet Take 1 t ablet every 12 hours by oral route as directed for 10 days. No 1 Q12H Bactrim DS 800 mg-160 mg tablet Take 1 tablet every 12 hours by oral route as directed for 10 days. [facility] ice Linzess 145 mcg capsule Take 1 capsule e very day by oral route as needed for 30 days. Linzess 145 mcg capsule Take 1 capsule e very day by oral route as needed for 30 days. No Linzess 145 mcg capsule Take 1 capsule every day by oral route as needed for 30 days. [facility] lisinopril 20 mg tablet Take 0.5 tablets twice a day by oral route as directed for 30 days. lisinopril 20 mg tablet Take 0.5 tablets twice a day by oral route as directed for 30 days. No lisinopril 20 mg tablet Take 0.5 tablets twice a day by oral route as directed for 30 days. [facility] Low Dose Aspirin 81 mg tablet,delayed re lease Take 1 tablet every day by oral route. Low Dose Aspirin 81 mg tablet,delayed re lease Take 1 tablet every day by oral route. No 1 Q1D Low Dose Asp irin 81 mg tablet,delayed release Take 1 tablet every day by oral route. [facility] Medrol (Edson) 4 mg tablets in a dose pack Take 1 dose p k by oral route. Medrol (Edson) 4 mg tablets in a dose pack Take 1 dose pk by oral route. No 1dose pk(s) Medrol (Edson) 4 mg tablets in a dose pack Take 1 dose pk by oral route. [facility] metoprolol tartrate 25 mg tablet Take 0. 5 tablets twice a day by oral route as directed for 30 days. metoprolol tartrate 25 mg tablet Take 0. 5 tablets twice a day by oral route as directed for 30 days. No metoprolol tartrate 25 mg tablet Take 0.5 tablets twice a day by oral route as directed for 30 days. [facility] mupirocin 2 % topical ointment APPLY A S MALL AMOUNT TO THE AFFECTED AREA BY TOPICAL ROUTE 3 TIMES PER DAY FOR UP TO 10 DAYS. mupirocin 2 % topical ointment APPLY A SMALL AMOUNT TO THE AFFECTED AREA BY TOPICAL ROUTE 3 TIMES PER DAY FOR UP TO 10 DAYS. No mupirocin 2 % topical ointment APPLY A SMALL AMOUNT TO THE AFFECTED AREA BY TOPICAL ROUTE 3 TIMES PER DAY FOR UP TO 10 DAYS. [facility] pantoprazole 40 mg tablet,delayed releas e TAKE ONE (1) TABLET(S) BY MOUTH ONCE A DAY. pantoprazole 40 mg tablet,delayed releas e TAKE ONE (1) TABLET(S) BY MOUTH ONCE A DAY. No pantoprazole 40 mg tablet,delayed release TAKE ONE (1) TABLET(S) BY MOUTH ONCE A DAY. [facility] pravastatin 40 mg tablet TAKE ONE (1) TABLET(S) BY JESUS TH IN THE EVENING. pravastatin 40 mg tablet TAKE ONE (1) TABLET(S) BY MOUTH IN THE EVENING. No pravastatin 40 mg tablet LINDSEY E ONE (1) TABLET(S) BY MOUTH IN THE EVENING. [facility] Tylenol 325 mg capsule Take 1 capsule every day by ora l route as needed. Tylenol 325 mg capsule Take 1 capsule every day by oral route as needed. No 1capsule(s) Q1D Tylenol 325 mg capsule Take 1 capsule every day by oral route as needed. [facility] Alprazolam 0.5 Mg Tablet Alprazolam 0.5 Mg Tablet Yes .5 Bedtime as needed for Anxiety [facility] Amlodipine Besylate 10 Mg Tablet Amlodipine Besylate 10 Mg Tablet Yes [address] [facility] [place] [place] Clonidine Hcl 0.1 Mg Tablet Clonidine Hcl 0.1 Mg Tablet Yes .1 Twice A Day as needed for High Blood Pressure [facility] Lisinopril 10 Mg Tablet Lisinopril 10 Mg Tablet Yes 40 Daily [facility] Metoprolol Tartrate 25 Mg Tablet Metoprolol Tartrate 25 Mg Tablet Yes 25 Twice A Day [facility] [place] [place] Pravastatin Sodium 40 Mg Tablet Pravastatin Sodium 40 Mg Tablet Yes [address] [facility] [place] [place] Terbinafine Hcl 250 Mg Tablet Terbinafine Hcl 250 Mg Tablet Yes 250 Daily [facility] Metoprolol Tartrate 50 Mg Tablet, 100 Mg Oral Metoprol ol Tartrate 50 Mg Tablet, 100 Mg Oral 2018-04-26 00:00:00 No 100 Daily At [address] [facility] [place] [place] Amlodipine Besylate (Norvasc) 10 Mg Tab, 10 Mg Oral Am lodipine Besylate (Norvasc) 10 Mg Tab, 10 Mg Oral 2018-04-22 00:00:00 No [address] [facility] [place] [place] Hydrochlorothiazide 25 Mg Tablet, 25 Mg Oral Hydrochlo rothiazide 25 Mg Tablet, 25 Mg Oral 2018-04-22 00:00:00 No [address] [facility] [place] [place] Lisinopril 40 Mg Tablet, 40 Mg Oral Lisinopril 40 Mg Tablet, 40 Mg Oral 2018-04-22 00:00:00 No [address] [facility] [place] [place] Metoprolol Tartrate 25 Mg Tablet, 25 Mg Oral Metoprolo l Tartrate 25 Mg Tablet, 25 Mg Oral 2018-04-22 00:00:[address] [facility] [place] [place] Pantoprazole Sodium (Protonix) 40 Mg Tablet.dr, 40 Mg Oral Pantoprazole Sodium (Protonix) 40 Mg Tablet.dr, 40 Mg Oral 2018-04-22 00:00:[address] [facility] Pravastatin Sodium 20 Mg Tablet, Pravastatin Sodium 20 Mg Tablet , 2018-04-22 00:00:[address] [facility] [place] [place] Esomeprazole Magnesium (Nexium) 40 Mg Capsule., 40 M g Oral Esomeprazole Magnesium (Nexium) 40 Mg Capsule., 40 Mg Oral 2014-07-05 00:00:00 No [address] [facility] [place] [place] Sulfamethoxazole/Trimethoprim (Bactrim Ds Tablet) 1 Ea ch Tablet, 160 Mg Oral Sulfamethoxazole/Trimethoprim (Bactrim Ds Tablet) 1 Each Tablet, 160 Mg Oral 2014-07-05 00:00:00 No [address] [facility] [place] [place] Immunizations Ordered Immunization Name Filled Immunization Name Date Status Comments Source influenza, high dose seasonal influenza, high dose seasonal 2017 14:56:10 Completed [facility] pneumococcal polysaccharide PPV23 pneumococcal polysaccharid e PPV23 2018-04-13 12:46:00 Completed [facility] ice pneumococcal conjugate PCV 13 pneumococcal conjugate PCV 13 2016 12:23:02 Completed [facility] Vital Signs Vital Name Observation Time Observation Value Comments Source BP Diastolic 2019-04-27 00:00:00 70 mm[Hg] [facility] Height 2019-04-27 00:00:00 64.5 [in_i] [facility] BMI (Body Mass Index) 2019-04-27 00:00:00 31.8 kg/m2 [facility] BP Systolic 2019-04-27 00:00:00 140 mm[Hg] [facility] Body Weight 2019-04-27 00:00:00 188 [lb_av] [facility] BP Diastolic 2019-04-15 00:00:00 62 mm[Hg] [facility] Height 2019-04-15 00:00:00 64.5 [in_i] [facility] BMI (Body Mass Index) 2019-04-15 00:00:00 32.2 kg/m2 [facility] BP Systolic 2019-04-15 00:00:00 116 mm[Hg] [facility] Body Weight 2019-04-15 00:00:00 190.6 [lb_av] [facility] BP Diastolic 2019-03-08 00:00:00 74 mm[Hg] [facility] Height 2019-03-08 00:00:00 64.5 [in_i] [facility] BMI (Body Mass Index) 2019-03-08 00:00:00 32.6 kg/m2 [facility] BP Systolic 2019-03-08 00:00:00 126 mm[Hg] [facility] Body Weight 2019-03-08 00:00:00 193 [lb_av] [facility] BP Diastolic 2019-02-18 00:00:00 62 mm[Hg] [facility] Height 2019-02-18 00:00:00 64.5 [in_i] [facility] BMI (Body Mass Index) 2019-02-18 00:00:00 31.6 kg/m2 [facility] BP Systolic 2019-02-18 00:00:00 111 mm[Hg] [facility] Body Weight 2019-02-18 00:00:00 187 [lb_av] [facility] BP Diastolic 2019-02-15 00:00:00 82 mm[Hg] [facility] Height 2019-02-15 00:00:00 64.5 [in_i] [facility] BMI (Body Mass Index) 2019-02-15 00:00:00 31.8 kg/m2 [facility] BP Systolic 2019-02-15 00:00:00 120 mm[Hg] [facility] Body Weight 2019-02-15 00:00:00 188 [lb_av] [facility] BP Diastolic 2019-01-27 00:00:00 70 mm[Hg] [facility] Height 2019-01-27 00:00:00 65 [in_i] [facility] BMI (Body Mass Index) 2019-01-27 00:00:00 31.8 kg/m2 [facility] BP Systolic 2019-01-27 00:00:00 130 mm[Hg] [facility] Body Weight 2019-01-27 00:00:00 191 [lb_av] [facility] BP Diastolic 2018-11-17 00:00:00 70 mm[Hg] [facility] Height 2018-11-17 00:00:00 65 [in_i] [facility] BMI (Body Mass Index) 2018-11-17 00:00:00 31 kg/m2 [facility] BP Systolic 2018-11-17 00:00:00 130 mm[Hg] [facility] Body Weight 2018-11-17 00:00:00 186 [lb_av] [facility] BP Diastolic 2018-10-27 00:00:00 68 mm[Hg] [facility] Height 2018-10-27 00:00:00 65 [in_i] [facility] BMI (Body Mass Index) 2018-10-27 00:00:00 30.6 kg/m2 [facility] BP Systolic 2018-10-27 00:00:00 130 mm[Hg] [facility] Body Weight 2018-10-27 00:00:00 183.8 [lb_av] [facility] Procedures Procedure Date / Time Performed Performing Clinician [facility] e X-RAY OF FOOT 3+ VIEW 2019-04-15 00:00:[address] [facility] CT, abdomen + pelvis, w/o contrast 2019-02-23 00:00:[address] [facility] [address], abdomen + pelvis, w/ contrast 2019-02-15 00:00:00 [facility] X-RAY OF SHOULDER 2 VIEW 2019-01-27 00:00:00 [facility] bone density 2018-11-17 00:00:00 [facility] X-RAY HIP UNLIATERAL (2-3 VIEWS) 2018-10-27 00:00:00 [facility] US abdomen limited 2018-04-23 00:00:00 [facility] 2018-04-22 00:00:00 ALEYDA BARRON CH, I [facility] Computed tomography of brain without radiopaque contrast 201 04-24-17 00:00:00 DUTCH SHERMAN [facility] Colonoscopy 2010-07-01 00:00:00 [facility] Encounters Start Date/Time End Date/Time Encounter Type Admission Type [facility] Care Department Encounter ID Source 2019-04-27 00:00:00 2019-04-27 00:00:00 Micky candelaria MD: [id number] [place] [address], Ph. [facility] - [facility] - [facility] [id number] [facility] 2019-04-15 00:00:00 2019-04-15 00:00:00 Micky candelaria MD: [address] [place] [address], Ph. [facility] [place] [facility] [id number] [facility] 2019-03-08 00:00:00 2019-03-08 00:00:00 Micky candelaria MD: [address] [place] [address], Ph. [facility] [place] [facility] [id number] [facility] 2019-02-18 00:00:00 2019-02-18 00:00:00 Micky candelaria MD: [address] [place] [address], Ph. [facility] [place] [facility] [id number] [facility] 2019-02-15 00:00:00 2019-02-15 00:00:00 Micky candelaria MD: [address] [place] [address], Ph. [facility] [place] [facility] [id number] [facility] 2019-01-27 00:00:00 2019-01-27 00:00:00 Micky candelaria MD: [address] [place] [address], Ph. [facility] [place] [facility] [id number] [facility] 2018-11-17 00:00:00 2018-11-17 00:00:00 Micky candelaria MD: [address] [place] [address], Ph. [facility] [place] [facility] [id number] [facility] 2018-10-27 00:00:2018-10-27 00:00:00 Micky candelaria MD: [address] [place] [address], Ph. [facility] - [facility] - [facility] [id number] [facility] 2018-05-01 22:22:00 2018-05-02 01:20:00 Departed Emergency Room 1 ALEYDA BARRON [facility] [id number] [facility] 2018-04-23 00:08:00 2018-04-26 19:28:00 Discharged Inpatient (obs) 1 HETAL WILLINGHAM [facility] [id number] [facility] [place] [place] 2018-01-05 21:38:00 2018-01-05 23:37:00 Departed Emergency Room ER DUTCH SHERMAN [facility] [id number] [facility] [place] [place] 2017-05-26 19:50:00 2017-05-26 23:18:00 Departed Emergency Room [facility] [id number] [facility] Results Test Description Test Time Test Comments Results Result Comments Source - XR CHEST 1 V 2019-09-22 21:55:00 FAX: Reuben Vega MD [place]: B St: REG -- Name: RUI MAZARIEGOS [facility] : 1945 Age/S: 74/F [address] Unit #: [id number] Loc: [place] [address] Phys: Reuben Vega MD Acct: [id number] Dis Date: Status: REG ER PHONE #: [phone] Exam Date: 09/22/20192102 FAX #: [phone] Reason: Shortness of Breath EXAMS: CPT CODE: [id number] XR CHEST 1 V [id number] REASON FOR EXAM: Shortness of Breath Exam Order Date: 09/22/2019 8:08 PM Ordering M.D.: Reuben Vega MD PROCEDURE: - XR CHEST 1 V COMPARISON: None FINDINGS: The lungs are clear. There is no pleural effusion or pneumothorax. Pulmonary vascularity is within normal limits. Cardiomediastinal silhouette is normal in size for technique. The mediastinal contours are within normal limits. There are degenerative changes in the spine and acromioclavicular joints. The visualized upper abdomen is within normal limits. IMPRESSION: No acute cardiopulmonary process. Location: [facility] at 2155 Reported and signed by: Ion March MD CC: Reuben Vega MD Technologist: RT Ellen(R Trnscrd Date/Time/By: 09/22/2019 (2154) : By: [email or web address] Orig Print D/T: S: 09/22/2019 (2157) PAGE 1 Signed Report BASIC METABOLIC PANEL 2019-09-22 21:09:00 Test Item SODIUM (test code = NA) 135 mmol/L 136-145 L POTASSIUM (test code = K) 4.2 mmol/L 3.5-5.1 N CHLORIDE (test code = CL) 100.0 mmol/L 98-107 N CARBON DIOXIDE (test code = CO2) 25.0 mmol/L 21-32 N ANION GAP (test code = GAP) 14.2 10-20 N GLUCOSE (test code = GLU) 211 mg/dL 74-106 H BLOOD UREA NITROGEN (test code = BUN) 31 mg/dL 7-18 H GLOMERULAR FILTRATION RATE (test code = GFR) 37 mL/min >=60 Estimated GFR by using Modified MDRD formula.Chronic kidney disease is defined as either kidney damageor GFR <60 mL/min/1.73 m2 for >3 months. CREATININE (test code = CREAT) 1.40 mg/dL 0.55-1.02 H Note change in reference range due to change in reagent. BUN/CREATININE RATIO (test code = BUN/CREA) 22.1 10-20 H CALCIUM (test code = CA) 9.1 mg/dL 8.5-10.1 N [id number] 21:09:00* Test Item Value Reference Range Interpretation Comments MAGNESIUM (test code = MAG) 2.1 mg/dL 1.8-2.4 N TSH REFLEX TO [id number] 21:09:00* Test Item Value Reference Range Interpretation Comments TSH REFLEX TO FT4 (test code = TSHREFLEX) 1.5 0.4-5.5 N [id number] 21:09:00* Test Item Value Reference Range Interpretation Comments TROPONIN-I (test code = TROPI) <0.015 ng/mL 0-0.045 N B-TYPE NATRIURETIC [id number] 21:05:00* Test Item Value Reference Range Interpretation Comments B-TYPE NATRIURETIC PEPTIDE (test code = BNP) 47.34 pgram/mL 0-100 N PROTHROMBIN [id number] 20:54:00* Test Item Value Reference Range Interpretation Comments PROTHROMBIN TIME PATIENT (test code = PTP) 11.4 seconds 9.0-14.0 N INTERNATIONAL NORMAL RATIO (test code = INR) 1.0 0.8-1.2 N The therapeutic range for oral anticoagulant therapy formost indications is an international normalized ratio (INR)of between 2.0 and 3.0. The recommended therapeutic INRrange for various clinical situations is listed below: Clinical Situation INR range Pulmonary e mbolism treatment (2.0-3.0)Venous thrombosis treatmentVenous thrombosis prophylaxis (high risk surgery)Prevention of systemic embolism from: Acute myocardial infarction Valvular heart disease Atrial fibrillation Mechanical prosthetic heart valves (2.5-3.5) IS PATIENT ON ANTICOAGULANTS? NTHROMBOPLASTIN TIME [id number] 20:54:00* Test Item Value Reference Range Interpretation Comments THROMBOPLASTIN TIME PARTIAL (test code = PTT) 36.6 seconds 25.0-36. 5 H IS PATIENT ON ANTICOAGULANTS? NBASIC METABOLIC [id number] 20:54:00* Test Item Value Reference Range Interpretation Comments SODIUM (test code = NA) 135 mmol/L 136-145 L POTASSIUM (test code = K) 4.2 mmol/L 3.5-5.1 N CHLORIDE (test code = CL) 100.0 mmol/L 98-107 N CARBON DIOXIDE (test code = CO2) mmol/L 21-32 ANION GAP (test code = GAP) 10-20 GLUCOSE (test code = GLU) mg/dL 74-106 BLOOD UREA NITROGEN (test code = BUN) mg/dL 7-18 GLOMERULAR FILTRATION RATE (test code = GFR) mL/min >=60 CREATININE (test code = CREAT) mg/dL 0.55-1.02 BUN/CREATININE RATIO (test code = BUN/CREA) 10-20 CALCIUM (test code = CA) mg/dL 8.5-10.1 [id number] 20:54:00* Test Item Value Reference Range Interpretation Comments MAGNESIUM (test code = MAG) mg/dL 1.8-2.4 TSH REFLEX TO [id number] 20:54:00* Test Item Value Reference Range Interpretation Comments TSH REFLEX TO FT4 (test code = TSHREFLEX) 0.4-5.5 [id number] 20:54:00* Test Item Value Reference Range Interpretation Comments TROPONIN-I (test code = TROPI) ng/mL 0-0.045 CBC W/O [id number] 20:40:00* Test Item Value Reference Range Interpretation Comments WHITE BLOOD CELL (test code = WBC) 10.3 K/mm3 4.5-12.5 N RED BLOOD CELL (test code = RBC) 4.32 mill/mm3 3.7-5.2 N HEMOGLOBIN (test code = HGB) 12.2 gram/dL 11.5-15.5 N HEMATOCRIT (test code = HCT) 39.3 % 36.0-46.0 N MEAN CELL VOLUME (test code = MCV) 91.0 fL 80-98 N MEAN CELL HGB (test code = MCH) 28.2 picogram 27.0-33.0 N MEAN CELL HGB CONCETRATION (test code = MCHC) 31.0 gram/dL 33.0-36. 0 L RED CELL DISTRIBUTION WIDTH (test code = RDW) 13.1 % 11.6-16. 2 N PLATELET COUNT (test code = PLT) 275 K/mm3 150-450 N MEAN PLATELET VOLUME (test code = MPV) 10.8 fL 6.7-11.0 N CBC W/O [id number] 20:36:00* Test Item Value Reference Range Interpretation Comments WHITE BLOOD CELL (test code = WBC) K/mm3 4.5-12.5 RED BLOOD CELL (test code = RBC) mill/mm3 3.7-5.2 HEMOGLOBIN (test code = HGB) 12.2 gram/dL 11.5-15.5 N HEMATOCRIT (test code = HCT) 39.3 % 36.0-46.0 N MEAN CELL VOLUME (test code = MCV) fL 80-98 MEAN CELL HGB (test code = MCH) picogram 27.0-33.0 MEAN CELL HGB CONCETRATION (test code = MCHC) gram/dL 33.0-36. 0 RED CELL DISTRIBUTION WIDTH (test code = RDW) % 11.6-16. 2 PLATELET COUNT (test code = PLT) K/mm3 150-450 MEAN PLATELET VOLUME (test code = MPV) fL 6.7-11.0 Thyroid Stimulating Hormone (TSH)2018-05-02 00:57:00* Test Item Value Reference Range Interpretation Comments Thyroid Stimulating Hormone (TSH) (test code = 32612-3) 0.630 0.350-4.[address] [facility] [id number] 00:04:00* Test Item Value Reference Range Interpretation Comments Creatine Kinase MB (test code = 27438-9) 1.30 0-5.[address] [facility] [place], TXTroponin [id number] 00:04:00* Test Item Value Reference Range Interpretation Comments Troponin I (test code = [id number]) 0.005 0-0.[address] [facility] [place], TXCHEST SINGLE (PORTABLE)2018-05-02 00:02:00 [facility] [address] [place] [address] Patient Name: RUI MAZARIEGOS MR #: [id number] : 1945 Age/Sex: 72/F Req #: [id number] Adm Physician: Ordered by: SHAHANA MCCLENDON DROP WIRE OPERATOR Report #: [id number] Location: ER Room/Bed: Procedure: [id number] DX/CHEST SINGLE (PORTABLE) E xam Date: 05/01/18 Exam Time: 2345 REPORT STATU S: Signed EXAM: CHEST SINGLE (PORTABLE), AP 1 view INDICATION: Hypertension COMPARISON: PA and lateral view of the chest April 22, 2018 FINDINGS: LINES/TUBES: None LUNGS: No consolidations or edema. PLEURA: No effus ions or pneumothorax. HEART AND MEDIASTINUM: Normal size and contour. BONES AND SOFT TISSUES: No acute findings. IMPRESSION: No acute thoracic abnormality. Signed by: Dr. Wendy Levi M.D. on 05/02/2018 12: 03 AM Dictated By: WENDY LEVI MD Transcribed By: SOPHIE on 05/02/182 COPY TO: SHAHANA MCCLENDON NP Sodium Jqxhm7745-37-30 00:01:00* Test Item Value Reference Range Interpretation Comments Sodium Level (test code = 2951-2) 137 136-[address] [facility] [place], TXPotassium Jlcxg5032-54-87 00:01:00* Test Item Value Reference Range Interpretation Comments Potassium Level (test code = 2823-3) 4.7 3.5-5.[address] [facility] [place], TXChloride Nvvro3363-83-99 00:01:00* Test Item Value Reference Range Interpretation Comments Chloride Level (test code = 2075-0) 103 98-[address] [facility] [place], TXCarbon Dioxide Ednth2883-51-22 00:01:00* Test Item Value Reference Range Interpretation Comments Carbon Dioxide Level (test code = 2028-9) 21 22-[address] [facility] [place], TXAnion Peo0858-17-94 00:01:00* Test Item Value Reference Range Interpretation Comments Anion Gap (test code = 21284-3) 17.7 8-[address] [facility] [place], TXBlood Urea Nbjafnfw1380-29-72 00:01:00* Test Item Value Reference Range Interpretation Comments Blood Urea Nitrogen (test code = 3094-0) 40 7-[address] [facility] [place], TXCreatinine2018-08-12 00:01:00* Test Item Value Reference Range Interpretation Comments Creatinine (test code = 2160-0) 1.41 0.57-1.[address] [facility] [place], TXBUN/Creatinine Gddhf7612-69-90 00:01:00* Test Item Value Reference Range Interpretation Comments BUN/Creatinine Ratio (test code = 3097-3) 28 6-[address] [facility] [place], TXEstimat Glomerular Filtration Rate 2018-05-02 00:01:00* Test Item Value Reference Range Interpretation Comments Estimat Glomerular Filtration Rate (test code = 11524-3) 36 >60 L Ranges were taken from the National Kidney Disease Education Program and the [facility] literature.Reference ranges:60 or greater: Pibfqt81-63 ( for 3 consecutive months): Chronic kidney disease 15 or less: Kidney failure[facility] [place], TXGlucose Qcwkc7186-95-70 00:01:00* Test Item Value Reference Range Interpretation Comments Glucose Level (test code = AXG5393) 121 74-[address] [facility] [place], TXCalcium Okznh7697-81-59 00:01:00* Test Item Value Reference Range Interpretation Comments Calcium Level (test code = 59175-5) 10.3 8.4-10.[address] [facility] [place], TXTotal Vhpebwuxg2973-30-88 00:01:00* Test Item Value Reference Range Interpretation Comments Total Bilirubin (test code = 1975-2) 0.4 0.2-1.[address] [facility] [place], TXAspartate Amino Transf (AST/SGOT) 2018-05-02 00:01:00* Test Item Value Reference Range Interpretation Comments Aspartate Amino Transf (AST/SGOT) (test code = Aspartate Amino Transf (AST/SGOT)) 19 5-[address] [facility] [place], TXAlanine Aminotransferase (ALT/SGPT) 2018-05-02 00:01:00* Test Item Value Reference Range Interpretation Comments Alanine Aminotransferase (ALT/SGPT) (test code = 1742-6) 31 0-[address] [facility] [place], TXTotal Ytpdfsg0021-96-38 00:01:00* Test Item Value Reference Range Interpretation Comments Total Protein (test code = 2885-2) 7.9 6.5-8.[address] [facility] [place], TXAlbumin2018-08-12 00:01:00* Test Item Value Reference Range Interpretation Comments Albumin (test code = 1751-7) 4.3 3.5-5.[address] [facility] [place], TXGlobulin2018-08-12 00:01:00* Test Item Value Reference Range Interpretation Comments Globulin (test code = 53982-9) 3.6 2.3-3.[address] [facility] [place], TXAlbumin/Globulin Bekuy8763-04-02 00:01:00 * Test Item Value Reference Range Interpretation Comments Albumin/Globulin Ratio (test code = 1759-0) 1.2 0.8-2.[address] [facility] [place], TXAlkaline Hfqelijymog6803-05-63 00:01:00* Test Item Value Reference Range Interpretation Comments Alkaline Phosphatase (test code = 6768-6) 94 40-[address] [facility] [place], TXCreatine Djpmwc4424-20-52 00:01:00* Test Item Value Reference Range Interpretation Comments Creatine Kinase (test code = 2157-6) 86 29-[address] [facility] [place], TXActivated Partial Thromboplast Time 2018-05-02 00:00:00* Test Item Value Reference Range Interpretation Comments Activated Partial Thromboplast Time (test code = 01291-1) 33.8 23.8-35.[address] [facility] [place], TXUrine Afbwy3220-49-84 23:58:00* Test Item Value Reference Range Interpretation Comments Urine Color (test code = 5778-6) YELLOW YELLOW [facility] [place], TXUrine Muonmqu2137-06-15 23:58:00* Test Item Value Reference Range Interpretation Comments Urine Clarity (test code = 98549-8) CLOUDY CLEAR H [facility] [place], TXUrine Specific Jnrancc8374-98-12 23:58:00 * Test Item Value Reference Range Interpretation Comments Urine Specific [place] (test code = 5811-5) 1.005 1.010-1.[address] [facility] [place], TXUrine gY7334-26-05 23:58:00* Test Item Value Reference Range Interpretation Comments Urine pH (test code = 41784-3) 6 5-[address] [facility] [place], TXUrine Leukocyte Hcilhpxb8983-31-57 23:58:00* Test Item Value Reference Range Interpretation Comments Urine Leukocyte Esterase (test code = 5799-2) NEGATIVE NEGATIVE [facility] Wtipgjy3336-72-54 23:58:00* Test Item Value Reference Range Interpretation Comments Urine Nitrite (test code = 49133-7) NEGATIVE NEGATIVE [facility] Nrybhnw0903-09-01 23:58:00* Test Item Value Reference Range Interpretation Comments Urine Protein (test code = 5804-0) NEGATIVE NEGATIVE [facility] Glucose (UA)2018-05-01 23:58:00* Test Item Value Reference Range Interpretation Comments Urine Glucose (UA) (test code = 2349-9) NEGATIVE NEGATIVE [facility] [place], TXUrine Gsgxnhw0381-27-09 23:58:00* Test Item Value Reference Range Interpretation Comments Urine Ketones (test code = 48512-3) NEGATIVE NEGATIVE [facility] Oouhsbkrvtom8007-74-66 23:58:00* Test Item Value Reference Range Interpretation Comments Urine Urobilinogen (test code = 81266-2) 0.2 0.2-[address] [facility] [place], TXUrine Ovpyqettz3724-53-33 23:58:00* Test Item Value Reference Range Interpretation Comments Urine Bilirubin (test code = 1978-6) NEGATIVE NEGATIVE [facility] Mtaax7543-09-77 23:58:00* Test Item Value Reference Range Interpretation Comments Urine Blood (test code = 48710-6) NEGATIVE NEGATIVE [facility] [place], TXUrine OBC1963-90-59 23:58:00* Test Item Value Reference Range Interpretation Comments Urine WBC (test code = 5821-4) 0-5 0-[address] [facility] [place], TXUrine LQK6447-33-71 23:58:00* Test Item Value Reference Range Interpretation Comments Urine RBC (test code = 35931-9) 0-5 0-[address] [facility] [place], TXUrine Jovndsmr9007-24-89 23:58:00* Test Item Value Reference Range Interpretation Comments Urine Bacteria (test code = 61704-1) NONE NONE [facility] [place], TXUrine Epithelial Lswnf2253-04-26 23:58:00 * Test Item Value Reference Range Interpretation Comments Urine Epithelial Cells (test code = 95186-8) FEW NONE [facility] [place], TXMagnesium Jedhd0678-98-59 23:55:00* Test Item Value Reference Range Interpretation Comments Magnesium Level (test code = 92080-0) 2.1 1.3-2.[address] [facility] [place], TXProthrombin Kdlh9558-00-49 23:51:00* Test Item Value Reference Range Interpretation Comments Prothrombin Time (test code = 5902-2) 13.1 11.9-14.[address] [facility] [place], TXProthromb Time International Ratio 2018-05-01 23:51:00* Test Item Value Reference Range Interpretation Comments Prothromb Time International Ratio (test code = 6301-6) 1.07 Oral Anticoagulant Therapy INR Values:1. Low Intensity Therapy 1.5 - 2.02 . Moderate Intensity Therapy 2.0 - 3.03. High Intensity Therapy(1) 2.5 - 3. 54. High Intensity Therapy(2) 3.0 - 4.05. Panic Value INR > 5.[address] [facility] [place], TXWhite Blood Yfuvx9323-63-88 23:46:00* Test Item Value Reference Range Interpretation Comments White Blood Count (test code = 6690-2) 8.04 4.8-10.[address] [facility] [place], TXRed Blood Dssyn2868-22-36 23:46:00* Test Item Value Reference Range Interpretation Comments Red Blood Count (test code = 789-8) 4.07 3.6-5.[address] [facility] [place], TXHemoglobin2018-08-11 23:46:00* Test Item Value Reference Range Interpretation Comments Hemoglobin (test code = 00969-5) 11.8 12.0-16.[address] [facility] [place], TXHematocrit2018-08-11 23:46:00* Test Item Value Reference Range Interpretation Comments Hematocrit (test code = 4544-3) 36.1 34.2-44.[address] [facility] [place], TXMean Corpuscular Ywzvle8140-04-21 23:46:00* Test Item Value Reference Range Interpretation Comments Mean Corpuscular Volume (test code = 787-2) 88.7 81-[address] [facility] [place], TXMean Corpuscular Nazmykttrl1771-69-29 23:46:00* Test Item Value Reference Range Interpretation Comments Mean Corpuscular Hemoglobin (test code = 785-6) 29.0 28-[address] [facility] [place], TXMean Corpuscular Hemoglobin Concent 2018-05-01 23:46:00* Test Item Value Reference Range Interpretation Comments Mean Corpuscular Hemoglobin Concent (test code = 786-4) 32.7 31-[address] [facility] [place], TXRed Cell Distribution Iseez6148-48-72 23:46:00* Test Item Value Reference Range Interpretation Comments Red Cell Distribution Width (test code = 42944-3) 13.3 11.7 -14.[address] [facility] [place], TXPlatelet Rlznz5085-32-39 23:46:00* Test Item Value Reference Range Interpretation Comments Platelet Count (test code = 777-3) 269 140-[address] [facility] [place], TXNeutrophils (%) (Auto)2018-05-01 23:46:00 * Test Item Value Reference Range Interpretation Comments Neutrophils (%) (Auto) (test code = 13863-6) 53.7 38.7-80.[address] [facility] [place], TXLymphocytes (%) (Auto)2018-05-01 23:46:00 * Test Item Value Reference Range Interpretation Comments Lymphocytes (%) (Auto) (test code = 736-9) 32.7 18.0-39.[address] [facility] [place], TXMonocytes (%) (Auto)2018-05-01 23:46:00* Test Item Value Reference Range Interpretation Comments Monocytes (%) (Auto) (test code = 5905-5) 9.3 4.4-11.[address] [facility] [place], TXEosinophils (%) (Auto)2018-05-01 23:46:00 * Test Item Value Reference Range Interpretation Comments Eosinophils (%) (Auto) (test code = 713-8) 3.2 0.0-6.[address] [facility] [place], TXBasophils (%) (Auto)2018-05-01 23:46:00* Test Item Value Reference Range Interpretation Comments Basophils (%) (Auto) (test code = 706-2) 0.6 0.0-1.[address] [facility] [place], TXIM GRANULOCYTES %2018-05-01 23:46:00* Test Item Value Reference Range Interpretation Comments IM GRANULOCYTES % (test code = IM GRANULOCYTES %) 0.5 0.0- 1.[address] [facility] [place], TXNeutrophils # (Auto)2018-05-01 23:46:00* Test Item Value Reference Range Interpretation Comments Neutrophils # (Auto) (test code = 751-8) 4.3 2.1-6.[address] [facility] [place], TXLymphocytes # (Auto)2018-05-01 23:46:00* Test Item Value Reference Range Interpretation Comments Lymphocytes # (Auto) (test code = 99426-5) 2.6 1.0-3.[address] [facility] [place], TXMonocytes # (Auto)2018-05-01 23:46:00* Test Item Value Reference Range Interpretation Comments Monocytes # (Auto) (test code = 742-7) 0.8 0.2-0.[address] [facility] [place], TXEosinophils # (Auto)2018-05-01 23:46:00* Test Item Value Reference Range Interpretation Comments Eosinophils # (Auto) (test code = 711-2) 0.3 0.0-0.[address] [facility] [place], TXBasophils # (Auto)2018-05-01 23:46:00* Test Item Value Reference Range Interpretation Comments Basophils # (Auto) (test code = 704-7) 0.1 0.0-0.[address] [facility] [place], TXAbsolute Immature Granulocyte (auto 2018-05-01 23:46:00* Test Item Value Reference Range Interpretation Comments Absolute Immature Granulocyte (auto (janelle t code = Absolute Immature Granulocyte (auto) 0.04 0-0.1 [facility] OHZD2518-20-08 22:36:00 [facility] [address] [address] Patient Name : RUI MAZARIEGOS MR #: [id number] : 1945 Age/Sex: 72/F Adm Physician : HETAL WILLINGHAM MD Admit Date : 04/23/18 Location : MED/SURG Room/Bed : [facility] REPORT: Cardiology Report DATE OF STUDY: April 26, 2018 NUCLEAR GATED MYOCARDIAL PERFUSION SCAN WITH LEXISCAN Lexiscan injected 0.4 mg intravenously as stress agent, and M yoview injected 10 mCi for resting protocol, 30 mCi for stress protocol. Pat ient did not have any chest pain. No EKG changes. Patient's nuclear stress test showed normal perfusion, left ventricular ejection fraction 65%. No evidence of ischemia or scar noted. IMPRESSION: Normal study. No ischemia or scar noted. Left ventricular ejection fraction 65%. DD: 02/2018 22:36 Job#: [id number] Signature Date Dictated By: ASHLI LIZARRAGA MD Transcribed By: SU on <Electronically signed by ASHLI LIZARRAGA MD><<Signature on File>> 05/21/181952 COPY TO: Sodium Xojul4967-25-48 05:09:00* Test Item Value Reference Range Interpretation Comments Sodium Level (test code = 2951-2) 138 136-[address] [facility] [place], TXPotassium Kmday1453-55-05 05:09:00* Test Item Value Reference Range Interpretation Comments Potassium Level (test code = 2823-3) 4.3 3.5-5.[address] [facility] [place], TXChloride Shedz6881-58-72 05:09:00* Test Item Value Reference Range Interpretation Comments Chloride Level (test code = 2075-0) 104 98-[address] [facility] [place], TXCarbon Dioxide Vdvlt0368-72-20 05:09:00* Test Item Value Reference Range Interpretation Comments Carbon Dioxide Level (test code = 2028-9) 25 22-[address] [facility] [place], TXAnion Utx8912-16-70 05:09:00* Test Item Value Reference Range Interpretation Comments Anion Gap (test code = 17106-1) 13.3 8-[address] [facility] [place], TXBlood Urea Jfmcdwxb1147-19-70 05:09:00* Test Item Value Reference Range Interpretation Comments Blood Urea Nitrogen (test code = 3094-0) 26 7-[address] [facility] [place], TXCreatinine2018-08-06 05:09:00* Test Item Value Reference Range Interpretation Comments Creatinine (test code = 2160-0) 1.09 0.57-1.[address] [facility] [place], TXBUN/Creatinine Xvjkz8387-19-93 05:09:00* Test Item Value Reference Range Interpretation Comments BUN/Creatinine Ratio (test code = 3097-3) 24 6-[address] [facility] [place], TXEstimat Glomerular Filtration Rate 2018-04-26 05:09:00* Test Item Value Reference Range Interpretation Comments Estimat Glomerular Filtration Rate (test code = 98107-1) 49 >60 L Ranges were taken from the National Kidney Disease Education Program and the [facility] literature.Reference ranges:60 or greater: Mjwtuz15-23 ( for 3 consecutive months): Chronic kidney disease 15 or less: Kid[facility] failure[facility] [place], TXGlucose Qryzp5145-15-92 05:09:00* Test Item Value Reference Range Interpretation Comments Glucose Level (test code = GJG2053) 101 74-[address] [facility] [place], TXCalcium Eubgb0854-38-79 05:09:00* Test Item Value Reference Range Interpretation Comments Calcium Level (test code = 78004-8) 9.7 8.4-10.[address] [facility] [place], TXWhite Blood Cwwkx7182-61-61 04:49:00* Test Item Value Reference Range Interpretation Comments White Blood Count (test code = 6690-2) 7.33 4.8-10.[address] [facility] [place], TXRed Blood Khzkl3836-79-77 04:49:00* Test Item Value Reference Range Interpretation Comments Red Blood Count (test code = 789-8) 4.00 3.6-5.[address] [facility] [place], TXHemoglobin2018-08-06 04:49:00* Test Item Value Reference Range Interpretation Comments Hemoglobin (test code = 90951-3) 11.5 12.0-16.[address] [facility] [place], TXHematocrit2018-08-06 04:49:00* Test Item Value Reference Range Interpretation Comments Hematocrit (test code = 4544-3) 35.4 34.2-44.[address] [facility] [place], TXMean Corpuscular Vfnfvm8639-86-07 04:49:00* Test Item Value Reference Range Interpretation Comments Mean Corpuscular Volume (test code = 787-2) 88.5 81-[address] [facility] [place], TXMean Corpuscular Oagcbpzwce5592-81-63 04:49:00* Test Item Value Reference Range Interpretation Comments Mean Corpuscular Hemoglobin (test code = 785-6) 28.8 28-[address] [facility] [place], TXMean Corpuscular Hemoglobin Concent 2018-04-26 04:49:00* Test Item Value Reference Range Interpretation Comments Mean Corpuscular Hemoglobin Concent (test code = 786-4) 32.5 31-[address] [facility] [place], TXRed Cell Distribution Rovzj3092-64-39 04:49:00* Test Item Value Reference Range Interpretation Comments Red Cell Distribution Width (test code = 40665-5) 13.2 11.7 -14.[address] [facility] [place], TXPlatelet Zskwk3711-45-94 04:49:00* Test Item Value Reference Range Interpretation Comments Platelet Count (test code = 777-3) 258 140-[address] [facility] [place], TXNeutrophils (%) (Auto)2018-04-26 04:49:00 * Test Item Value Reference Range Interpretation Comments Neutrophils (%) (Auto) (test code = 15949-5) 45.0 38.7-80.[address] [facility] [place], TXLymphocytes (%) (Auto)2018-04-26 04:49:00 * Test Item Value Reference Range Interpretation Comments Lymphocytes (%) (Auto) (test code = 736-9) 42.4 18.0-39.[address] [facility] [place], TXMonocytes (%) (Auto)2018-04-26 04:49:00* Test Item Value Reference Range Interpretation Comments Monocytes (%) (Auto) (test code = 5905-5) 9.5 4.4-11.[address] [facility] [place], TXEosinophils (%) (Auto)2018-04-26 04:49:00 * Test Item Value Reference Range Interpretation Comments Eosinophils (%) (Auto) (test code = 713-8) 2.2 0.0-6.[address] [facility] [place], TXBasophils (%) (Auto)2018-04-26 04:49:00* Test Item Value Reference Range Interpretation Comments Basophils (%) (Auto) (test code = 706-2) 0.5 0.0-1.[address] [facility] [place], TXIM GRANULOCYTES %2018-04-26 04:49:00* Test Item Value Reference Range Interpretation Comments IM GRANULOCYTES % (test code = IM GRANULOCYTES %) 0.4 0.0- 1.[address] [facility] [place], TXNeutrophils # (Auto)2018-04-26 04:49:00* Test Item Value Reference Range Interpretation Comments Neutrophils # (Auto) (test code = 751-8) 3.3 2.1-6.[address] [facility] [place], TXLymphocytes # (Auto)2018-04-26 04:49:00* Test Item Value Reference Range Interpretation Comments Lymphocytes # (Auto) (test code = 43083-9) 3.1 1.0-3.[address] [facility] [place], TXMonocytes # (Auto)2018-04-26 04:49:00* Test Item Value Reference Range Interpretation Comments Monocytes # (Auto) (test code = 742-7) 0.7 0.2-0.[address] [facility] [place], TXEosinophils # (Auto)2018-04-26 04:49:00* Test Item Value Reference Range Interpretation Comments Eosinophils # (Auto) (test code = 711-2) 0.2 0.0-0.[address] [facility] [place], TXBasophils # (Auto)2018-04-26 04:49:00* Test Item Value Reference Range Interpretation Comments Basophils # (Auto) (test code = 704-7) 0.0 0.0-0.[address] [facility] [place], TXAbsolute Immature Granulocyte (auto 2018-04-26 04:49:00* Test Item Value Reference Range Interpretation Comments Absolute Immature Granulocyte (auto (janelle t code = Absolute Immature Granulocyte (auto) 0.03 0-0.[address] [facility] [place], TXTriglycerides Dwihw9473-80-86 06:35:00* Test Item Value Reference Range Interpretation Comments Triglycerides Level (test code = 2571-8) 139 0-[address] [facility] [place], TXLDL Nxbhqkeqhfx2032-66-96 06:35:00* Test Item Value Reference Range Interpretation Comments LDL Cholesterol (test code = 2089-1) 99 60-[address] [facility] [place], TXTriglycerides Cesrz1833-45-88 06:35:00* Test Item Value Reference Range Interpretation Comments Triglycerides Level (test code = 2571-8) 139 0-[address] [facility] [place], TXLDL Zaisgplkpmy0460-80-95 06:35:00* Test Item Value Reference Range Interpretation Comments LDL Cholesterol (test code = 2089-1) 99 60-[address] [facility] [place], TXCholesterol Urwrb5454-03-50 05:46:00* Test Item Value Reference Range Interpretation Comments Cholesterol Level (test code = 2093-3) 177 0-199 Less than 200 mg/dL Low Kwqr017 - 239 mg/dL Borderline Smmj176 m g/dl and greater High Risk [facility] Paflcmbjeak8225-36-45 05:46:00* Test Item Value Reference Range Interpretation Comments HDL Cholesterol (test code = 2085-9) 50 40-[address] [facility] [place], TXCholesterol/HDL Puxsd1577-31-69 05:46:00 * Test Item Value Reference Range Interpretation Comments Cholesterol/HDL Ratio (test code = 9830-1) 3.5 3.0-3.[address] [facility] [place], TXCholesterol Azqyp2407-87-63 05:46:00* Test Item Value Reference Range Interpretation Comments Cholesterol Level (test code = 2093-3) 177 0-199 Less than 200 mg/dL Low Mhun314 - 239 mg/dL Borderline Jklh948 m g/dl and greater High Risk [facility] Sbambvcyhdu2291-12-34 05:46:00* Test Item Value Reference Range Interpretation Comments HDL Cholesterol (test code = 2085-9) 50 40-[address] [facility] [place], TXCholesterol/HDL Rvdnt8135-04-93 05:46:00 * Test Item Value Reference Range Interpretation Comments Cholesterol/HDL Ratio (test code = 9830-1) 3.5 3.0-3.[address] [facility] [place], TXUS ABDOMEN KSRDNQF3425-54-45 18:38:[address] [address] Patient Name: RUI MAZARIEGOS MR #: [id number] : Age/Sex: 72/F Req #: [id number] Adm Physician: HETAL LIRA MD Ordered by: HETAL WILLINGHAM MD Report #: [id number] Location: [facility] Room/Bed: [place] [address] Procedure: [id number] US/US ABD OMEN LIMITED Exam Date: 04/23/18 Exam Time: 1415 REPORT STATUS: Signed PROCEDURE: US ABDOMEN LIMITED COMPARISON: None . INDICATIONS: EVALUATE GB TECHNIQUE: Garza-scale and color Doppler transve rse and longitudinal images of the right upper quadrant of the abdomen were o btained. FINDINGS: Liver: 17.7 cm in right mid-clavicular line, e nlarged. Normal echogenicity. No masses. Main portal vein: 1.1 cm, normal i n size. Hepatopetal flow. Gallbladder: Wall measures 0.2 cm, normal. No s tones or sludge. Common Bile Duct: 0.2 cm, normal Sonographic Bowman's sign : Negative Right kidney: 11.2 cm. Normal echogenicity. No solid masses or hydronephrosis. Interpolar 1.1 x 1.2 x 1.1 cm anechoic cyst with a single thin septation. Pancreas: The visualized portions are unremarkable. Inferior vena cava: Patent Aorta: Within normal limits Ascites: None in the right upper quadrant of the abdomen. CONCLUSION: No evidence of cholelithiasis or cholecystitis. Hepatomegaly. Minimally complex cyst in t he right kidney. Dictated by: Piyush Heaton M.D. on 04/23/2018 at 18 :38 Electronically approved by: Piyush Heaton M.D. on 04/23/2018 at 18:3 8 Dictated By: PIYUSH HEATON MD 37 Transcribed By: EDDI on 04/23/181837 BINDING CUTTER Y TO: HETAL WILLINGHAM MD Total Wybpyyjvz5362-04-10 08:07:00* Test Item Value Reference Range Interpretation Comments Total Bilirubin (test code = 1975-2) 0.3 0.2-1.[address] [facility] [place], [place]Aspart[place] Amino Transf (AST/SGOT) 2018-04-23 08:07:00* Test Item Value Reference Range Interpretation Comments Aspartate Amino Transf (AST/SGOT) (test code = Aspartate Amino Transf (AST/SGOT)) 17 5-[address] [facility] [place], TXAlanine Aminotransferase (ALT/SGPT) 2018-04-23 08:07:00* Test Item Value Reference Range Interpretation Comments Alanine Aminotransferase (ALT/SGPT) (test code = 1742-6) 14 0-[address] [facility] [place], TXTotal [id number] 08:07:00* Test Item Value Reference Range Interpretation Comments Total Protein (test code = 2885-2) 6.9 6.5-8.[address] [facility] [place], TXAlbumin2018-08-03 08:07:00* Test Item Value Reference Range Interpretation Comments Albumin (test code = 1751-7) 3.7 3.5-5.[address] [facility] [place], TXGlobulin2018-08-03 08:07:00* Test Item Value Reference Range Interpretation Comments Globulin (test code = 57113-6) 3.2 2.3-3.[address] [facility] [place], TXAlbumin/Globulin [id number] 08:07:00 * Test Item Value Reference Range Interpretation Comments Albumin/Globulin Ratio (test code = 1759-0) 1.2 0.8-2.[address] [facility] [place], TXAlkaline Boojfcekrsq6303-21-53 08:07:00* Test Item Value Reference Range Interpretation Comments Alkaline Phosphatase (test code = 6768-6) 71 40-[address] [facility] [place], TXCreatine Kinase [id number] 07:23:00* Test Item Value Reference Range Interpretation Comments Creatine Kinase MB (test code = 66291-6) 1.10 0-5.[address] [facility] [place], TXTroponin [id number] 07:23:00* Test Item Value Reference Range Interpretation Comments Troponin I (test code = XVZ4368) 0.006 0-0.[address] [facility] [place], TXCreatine Yikqhi4044-62-55 07:16:00* Test Item Value Reference Range Interpretation Comments Creatine Kinase (test code = 2157-6) 78 29-[address] [facility] [place], TXB-Type Natriuretic Cxzmrma2956-23-27 23:38:00* Test Item Value Reference Range Interpretation Comments B-Type Natriuretic Peptide (test code = 46258-7) 195.2 0-[address] [facility] [place], TXB-Type Natriuretic Gknyrar1686-86-87 23:38:00* Test Item Value Reference Range Interpretation Comments B-Type Natriuretic Peptide (test code = 05494-5) 195.2 0-100 [facility] [id number] 23:33:00 [facility] [address] [address] Patient Name: RUI MAZARIEGOS MR #: [id number] : Age/Sex: 72/F Req #: [id number] Adm Physician: Ordered by: ALEYDA BARRON MD Report #: [id number] Location: ER Room/Bed: Procedure: [id number] DX/CHEST 2 VIEWS Exam Date: 11/08 Exam Time: 2315 REPORT STATUS: Signed C HEST 2 VIEWS, Technique: CHEST 2 VIEWS Comparison: None Clinical hi story: Chest pain DISCUSSION: PA view is overpenetrated with motion art ifact limiting assessment. Cardiac silhouette is normal. Left apical pleural-p arenchymal scarring. No consolidation or edema. No pleural effusion or pneumot horax. IMPRESSION: No acute abnormality Signed by: Dr Tobi Meléndez MD on 04/22/2018 11:36 PM Dictated By: TOBI MELÉNDEZ MD [id number] Transcribed By: SOPHIE on 04/22 2918 COPY TO: ALEYDA BARRON MD Magnesium [id number] 23:29:00* Test Item Value Reference Range Interpretation Comments Magnesium Level (test code = 59689-5) 2.2 1.3-2.[address] [facility] [place], TXUrine [id number] 23:28:00* Test Item Value Reference Range Interpretation Comments Urine WBC (test code = 5821-4) 11-20 0-[address] [facility] [place], TXUrine [id number] 23:28:00* Test Item Value Reference Range Interpretation Comments Urine RBC (test code = 14058-1) 0-5 0-[address] [facility] [place], TXUrine [id number] 23:28:00* Test Item Value Reference Range Interpretation Comments Urine Bacteria (test code = 25136-9) RARE NONE [facility] [place], TXUrine Epithelial [id number] 23:28:00 * Test Item Value Reference Range Interpretation Comments Urine Epithelial Cells (test code = 30224-8) RARE NONE [facility] [place], TXUrine Transitional Epithelial Cells 2018-04-22 23:28:00* Test Item Value Reference Range Interpretation Comments Urine Transitional Epithelial Cells (test code = 8249-5) FEW NONE H [facility] [place], TXUrine Transitional Epithelial Cells 2018-04-22 23:28:00* Test Item Value Reference Range Interpretation Comments Urine Transitional Epithelial Cells (test code = 8249-5) FEW NONE H [facility] [place], TXUrine [id number] 23:18:00* Test Item Value Reference Range Interpretation Comments Urine Color (test code = 5778-6) YELLOW YELLOW [facility] [place], TXUrine [id number] 23:18:00* Test Item Value Reference Range Interpretation Comments Urine Clarity (test code = 94877-1) CLEAR CLEAR [facility] [place], TXUrine Specific [id number] 23:18:00 * Test Item Value Reference Range Interpretation Comments Urine Specific [place] (test code = 5811-5) 1.010 1.010-1.[address] [facility] [place], TXUrine [id number] 23:18:00* Test Item Value Reference Range Interpretation Comments Urine pH (test code = 98280-4) 6 5-[address] [facility] [place], TXUrine Leukocyte [id number] 23:18:00* Test Item Value Reference Range Interpretation Comments Urine Leukocyte Esterase (test code = 5799-2) 1+ NEGATIVE H [facility] [place], TXUrine [id number] 23:18:00* Test Item Value Reference Range Interpretation Comments Urine Nitrite (test code = 55584-0) NEGATIVE NEGATIVE [facility] [place] TXUrine [id number] 23:18:00* Test Item Value Reference Range Interpretation Comments Urine Protein (test code = 5804-0) NEGATIVE NEGATIVE [facility] [place], TXUrine Glucose (UA)2018-04-22 23:18:00* Test Item Value Reference Range Interpretation Comments Urine Glucose (UA) (test code = 2349-9) NEGATIVE NEGATIVE [facility] [place], TXUrine [id number] 23:18:00* Test Item Value Reference Range Interpretation Comments Urine Ketones (test code = 53549-7) NEGATIVE NEGATIVE [facility] [id number] 23:18:00* Test Item Value Reference Range Interpretation Comments Urine Urobilinogen (test code = 72671-5) 0.2 0.2-[address] [facility] [place], TXUrine [id number] 23:18:00* Test Item Value Reference Range Interpretation Comments Urine Bilirubin (test code = 1978-6) NEGATIVE NEGATIVE [facility] [place], TXUrine [id number] 23:18:00* Test Item Value Reference Range Interpretation Comments Urine Blood (test code = 52232-6) NEGATIVE NEGATIVE [facility] [place], TXProthrombin [id number] 23:15:00* Test Item Value Reference Range Interpretation Comments Prothrombin Time (test code = 5902-2) 13.1 11.9-14.[address] [facility] [place], TXProthromb Time International Ratio 2018-04-22 23:15:00* Test Item Value Reference Range Interpretation Comments Prothromb Time International Ratio (test code = 6301-6) 1.07 Oral Anticoagulant Therapy INR Values:1. Low Intensity Therapy 1.5 - 2.02 . Moderate Intensity Therapy 2.0 - 3.03. High Intensity Therapy(1) 2.5 - 3. 54. High Intensity Therapy(2) 3.0 - 4.05. Panic Value INR > 5.[address] [facility] [place], TXActivated Partial Thromboplast Time 2018-04-22 23:15:00* Test Item Value Reference Range Interpretation Comments Activated Partial Thromboplast Time (test code = 05899-7) 33.9 23.8-35.[address] [facility] [place], TXCT BRAIN WO [facility] [address] [address] Patient Name: RUI MAZARIEGOS MR #: [id number] : 1945 Age/Sex: 72/F Req #: [id number] Adm Physician: Ordered by: DUTCH SHERMAN MD Report #: [id number] Location: ER Room/Bed: Procedure: [id number] CT/CT BRAIN WO Exam Date: 01/05/18 Exam Time: 5 REPORT STATUS: Signed Examination: CT BRAIN WITHOUT CONTRAST History:Headache. Comparison s tudies:None Technique: Axial images were obtained from the skull base to the vertex. Coronal and sagittal images reconstructed from the axial data. I ntravenous contrast: None Findings: Scalp: No abnormalities. Bones: No fractures, blastic or lytic lesions. Brain sulci: Appropriate for age. Ventricles: Normal in size and configuration. No hydrocephalus. Extra-axia l space: No abnormalities. Parenchyma: No masses, hemorrhage, or acute or chronic cortical based vascular insults. Sellar/suprasellar region: No abnormalities. Craniocervical junction: Patent foramen magnum. No Chiari one m alformation. Incidental findings: None. Impression: No intrac ranial abnormalities. Signed by: Dr. Janice Pierce M.D. on 01/05/2018 11 :02 PM Dictated By: JANICE THACKER MD 01 Transcribed By: SOPHIE on 01/05 COPY TO: DUTCH SHERMAN MD
--- OUTSIDE RECORDS SUMMARY | 2020-03-03 08:41 | XMS REPORT | Encounter Summary ---
Author Organization Unknown Address [address] [place] [address] Phone [phone] Care Team Providers Care Sap Solution Manager Consultant Name Role Phone Dr. Micky Ness 3 [phone] Kurtis Silva MD 82 [phone] Reason for Visit Left hip pain/problem; depression; Bilat eral shoulder pain Instructions 1. Bilateral shoulder joint pain XR, shoulder, 2 or more view ketorolac 30 mg/mL (1 mL) injection so lution Medrol (Edson) 4 mg tablets in a dose pa ck meloxicam 15 mg tablet 2. Pain of left hip joint 3. Major depressive disorder citalopram 10 mg tablet 4. Generalized anxiety disorder Discussion Note: None recorded. Patient educational handouts: No information available. Plan of Care Reminders Provider Appointments None recorded. Lab None recorded. Referral None recorded. Procedures None recorded. Surgeries None recorded. Imaging XR, Shoulder, 2 or More View 01/27/2019 [facility] Medications Name Start Date amlodipine 10 mg tablet Take 0.5 tablets twice a day by oral route in the evening for 30 days. citalopram 10 mg tablet Take 1 tablet every day by oral route as directed for 30 days. desonide 0.05 % topical cream APPLY SPARINGLY AND RUB GENTLY INTO THE AFFECTED AREA(S) BY TOPICAL ROUTE 2 TIMES PER DAY NEEDED ketorolac 30 mg/mL (1 mL) injection solu tion Inject 1 mL as needed by intramuscular route. lisinopril 20 mg tablet Take 0.5 tablets [...] BY MOUTH IN THE EVENING. Medications Administered Name Date ketorolac 30 mg/mL (1 mL) injection solu tion Inject 1 mL as needed by intramuscular route. 4014-92-25J76:25:00 Vitals Height Weight BMI Blood Pressure 5 ft 5 in 191 lbs 31.8 kg/m2 130/70 mm[Hg] Lab Results None recorded. [...] by 07/01/2010 Colonoscopy Information not avai lable 01/27/2019 XR, Shoulder, 2 or More View [facility] [place] [address] [place], [place] [phone] (Work Place) Vaccine List Vaccine Type influenza, high dose seasonal 08/10/20180.5 mL pneumococcal conjugate PCV 13 10/29/20160.5 mL pneumococcal polysaccharide PPV23 04/13/20180.5 mL Social History Smoking Status Never Smoker Past Encounters 01/27/2019 Bilateral Shoulder Joint Pain; Pain of Left Hip Joint; Major Depressive Disorder; Generalized Anxiety Disorder Micky Bowen MD: [address] [place] [address], Ph. History of Present Illness Note:Pain in her shoulders more in the right side, has trouble lifting her arms to do simple tasks like pulling the chain on the fan. going on for a couple months now. Not known triggers. Intensity: 7/10. Radiated to the neck and arms. Denies numbness, tingling or weakness in arms. Also thinks she is going through depression (sadness, lack of energy, poor motivation since 6 months ago. Denies suicidal/homicidal thoughts). Also still feeling pain in her left hip from the fall she had. Worse with rolling over in bed. Intensity: 2-3/10. Review of Systems Comprehensive General Adult ROS Reported By: Patient Constitutional: Constitutional: no fever Cardiovascular: Cardiovascular: no chest jamari n, no palpitations, no lightheadedness Respiratory: Respiratory: no cough, no wh eezing, no shortness of breath Gastrointestinal: Gastrointestinal: no abdomin al pain, no nausea, no vomiting, no constipation, no diarrhea Musculoskeletal: Musculoskeletal: no swelling in the extremities, [...] mal, normal tone. Joints, Bones, and Muscles: limited ROM, tenderness. Extremities: no edema Neurologic: Gait and Station: normal gai t Skin: Inspection and palpation: ; L HIP: mild tenderness with palpation at the level of the greater trochanter. Normal ROM. No deformities or crepitations
--- OUTSIDE RECORDS SUMMARY | 2020-03-03 08:41 | XMS REPORT | Encounter Summary ---
Author Organization Unknown Address [address] [place] [address] Phone [phone] Care Team Providers Care Circular Knitter Name Role Phone Dr. Micky Ness 3 [phone] Kurtsi Silva MD 82 [phone] Mati Houser MD 111 [phone] Tru Francis 130 [phone] Reason for Visit Right nail fungus; Left foot pain Instructions 1. Plantar fasciitis podiatry referral - *Please call the p atient and make an appointment* PLEASE SEND BACK CONSULT NOTES TO [phone] Medrol (Edson) 4 mg tablets in a dose pa ck 2. Paronychia of toe mupirocin 2 % topical ointment Bactrim DS 800 mg-160 mg tablet 3. Morbid obesity 4. Major depressive disorder 5. Atherosclerosis of aorta 6. Chronic kidney disease stage 3 Discussion Note: None recorded. Patient educational handouts: No information available. Plan of Care Reminders Provider Appointments Est Patient 05/06/2019 11:30AM Micky Bowen MD Lab None recorded. Referral Podiatry Referral 04/27/2019 [facility] DPL[facility] Procedures None recorded. Surgeries None recorded. Imaging None recorded. Medications Name Start Date amlodipine 10 mg tablet Take 0.5 tablets twice a day by oral route for 30 days. Bactrim DS 800 mg-160 mg tablet Take 1 tablet every 12 hours by oral route as directed for 10 days. Linzess 145 mcg capsule Take 1 capsule every day by oral route as needed for 30 days. lisinopril 20 mg tablet Take 0.5 tablets twice a day by oral route as directed for 30 days. Low Dose Aspirin 81 mg tablet,delayed re lease Take 1 tablet every day by oral route. Medrol (Edson) 4 mg tablets in a dose pack Take 1 dose pk by oral route. metoprolol tartrate 25 mg tablet Take 0.5 tablets twice a day by oral route as directed for 30 days. mupirocin 2 % topical ointment APPLY A SMALL AMOUNT TO THE AFFECTED AREA BY TOPICAL ROUTE 3 TIMES PER DAY FOR UP TO 10 DAYS. pantoprazole 40 mg tablet,delayed releas e TAKE ONE (1) TABLET(S) BY MOUTH ONCE A DAY. pravastatin 40 mg tablet TAKE ONE (1) TABLET(S) BY MOUTH IN THE EVENING. Tylenol 325 mg capsule Take 1 capsule every day by oral route as needed. Medications Administered None recorded. Vitals Height Weight BMI Blood Pressure 5 ft 4.5 in 188 lbs 31.8 kg/m2 (1) 140/70 mm[H g] (2) 122/70 mm[Hg] Lab Results None recorded. Allergies Code Code System Name Reaction Severity Status Onset 76036 RxNorm Azithromycin Active 012 6809 RxNorm Metformin Active 02/27/2012 18570 RxNorm Levofloxacin Active 99490 RxNorm Meloxicam Active 6922 RxNorm Metronidazole Active Penicillins Active Problems Name Status Onset Date [...] Pain Active Procedures Date Name Performed by Colonoscopy Information not avai lable 04/15/2019 XR, Foot [facility] [address] [place] [address] (Work Place) Vaccine List Vaccine Type influenza, high dose seasonal 08/10/20180.5 mL pneumococcal conjugate PCV 13 10/29/20160.5 mL pneumococcal polysaccharide PPV23 04/13/20180.5 mL Social History Tobacco Smoking Status Never Smoker Past Encounters 04/27/2019 Plantar Fasciitis; Paronychia of Toe; Morbid Obesity; Major Depressive Disorder; Atherosclerosis of Aorta; Chronic Kidney Disease Stage 3 Micky Bowen MD: [address] [place] [address], Ph. 04/15/2019 Pain in Both Feet Mickylis Boewn MD: [address] [place] [address], Ph. History of Present Illness Note:<div>F/u on feet pain. R foot pain is better. However, pain in the left foot is worse. Intensity: 9/10. Worse with walking. Denies numbness, tingling or weakness in the legs or feet.</div><div>Pain, swelling and erythema around the nail of the R great toe since 1 week ago. </div> Review of Systems:ROS as noted in the HPI Review of Systems None recorded. Physical Exam General Adult Exam (male) Reported By: Patient Constitutional: General Appearance: healthy- appearing. Level of Distress: NAD Eyes: Lids and Conjunctivae: non-i njected, no discharge Neck: Neck: trachea midline Lungs: Auscultation: breath sounds normal Cardiovascular: Heart Auscultation: RRR, nor mal S1, normal S2, no murmurs Musculoskeletal:: Motor Strength and Tone: nor mal, normal tone. Joints, Bones, and Muscles: normal movement of all extremities, no contractures, no bony abnormalities, no malalignment, tenderness. Extremities: no edema Neurologic: Gait and Station: normal gai t Skin: Inspection and palpation: ; tenderness with palpation, swelling and erythema in the skin around the nail of the R great toe
--- OUTSIDE RECORDS SUMMARY | 2020-03-03 08:41 | XMS REPORT | Encounter Summary ---
Author Organization Unknown Address [address] [place] [address] Phone [phone] Care Team Providers Care Artillery Specialist Name Role Phone Dr. Micky Ness 3 [phone] Kurtis Silva MD 82 [phone] Reason for Visit Left hip pain/problem; [...] [facility] Medications Name Start Date amlodipine 10 [...] 1 mL as needed by intramuscular route. 0772-38-10Q59:25:00 Vitals Height Weight BMI Blood Pressure 5 [...] 01/27/2019 XR, Shoulder, 2 or More View [facility] [place] [address] [place], [place] [phone] (Work Place) Vaccine List Vaccine Type influenza, high dose seasonal 08/10/20180.5 mL pneumococcal conjugate PCV 13 10/29/20160.5 mL pneumococcal polysaccharide PPV23 04/13/20180.5 mL Social History Smoking Status Never Smoker Past Encounters 01/27/2019 Bilateral Shoulder Joint Pain; Pain of Left Hip Joint; Major Depressive Disorder; Generalized Anxiety Disorder Micky Bowen MD: [address] [place] [address], Ph. History of Present Illness Note:Pain in [...] Worse with rolling over in bed. Intensity: 2-3-10. Review of Systems Comprehensive General Adult ROS [...]
--- OUTSIDE RECORDS SUMMARY | 2020-03-03 08:41 | XMS REPORT | Encounter Summary ---
Author Organization Unknown Address [address] [place] [address] Phone [phone] Care Team Providers Care Production Department Supervisor Name Role Phone Dr. Micky Ness 3 [phone] Kurtis Silva MD 82 [phone] Mati Houser MD 111 [phone] Tru Francis 130 [phone] Reason for Visit Left foot pain Instructions 1. Pain in both feet XR, foot - PLEASE CALL AND SCHEDULE FO R APPT meloxicam 15 mg tablet Discussion Note: None recorded. Patient educational handouts: No information available. Plan of Care Reminders Provider Appointments None recorded. Lab None recorded. Referral None recorded. Procedures None recorded. Surgeries None recorded. Imaging XR, Foot 04/15/2019 [facility] [place] Medications Name Start Date amlodipine 10 mg tablet Take 0.5 tablets twice a day by oral route for 30 days. Linzess 145 mcg capsule [...] BMI Blood Pressure 5 ft 4.5 in 190.6 lbs 32.2 kg/m2 116/62 mm[Hg] Lab Results None recorded. Allergies Code Code System Name Reaction Severity Status Onset 01719 RxNorm Azithromycin Active 012 6809 RxNorm Metformin Active 02/27/2012 83983 RxNorm Levofloxacin Active 6922 RxNorm Metronidazole Active Penicillins Active [...] Information not avai lable 04/15/2019 XR, Foot [facility] [place] [address] [place], [place] [phone] (Work Place) Vaccine List Vaccine Type influenza, high dose seasonal 08/10/20180.5 mL pneumococcal conjugate PCV 13 10/29/20160.5 mL pneumococcal polysaccharide PPV23 04/13/20180.5 mL Social History Tobacco Smoking Status Never Smoker Past Encounters 04/15/2019 Pain in Both Feet Micky A. Grover Bowen MD: [address] [place] [address], Ph. History of Present Illness Note:Feet pain, L worse than R since 2 weeks ago. Sharp type. Worse with walking. Intensity: 9/10. Not known triggers. Denies numbness, tingling, weakness in the feet, erythema, swelling or warmth. Review of Systems:ROS as noted in the [...] normal gai t Skin: Inspection and palpation: no rash, no lesions
--- OUTSIDE RECORDS SUMMARY | 2020-03-03 08:41 | XMS REPORT | Encounter Summary ---
Author Organization Unknown Address [address] [place] [address] Phone [phone] Care Team Providers Care Hogshead Mat Assembler Name Role Phone Dr. Micky Ness 3 [phone] Kurtis Silva MD 82 [phone] Reason for Visit Left abdominal pain Instructions 1. Left upper quadrant pain urinalysis, dipstick CT, abdomen + pelvis, w/ contrast - Pl ease call patient and schedule her an appointment. levofloxacin 750 mg tablet metronidazole 500 mg tablet tramadol 50 mg tablet 2. Depression screening positive learning about depression learning about mood disorders Discussion Note: None recorded. Plan of Care Reminders Provider Appointments Work in Same Day 02/18/2019 10:15AM Micky Bowen MD Lab Urinalysis, Dipstick 02/15/2019 [facility] ([facility]) [place] Referral None recorded. Procedures None recorded. Surgeries None recorded. Imaging CT, Abdomen + Pelvis, W/ Contrast 02/15/2019 [facility] [place] Medications Name Start Date amlodipine 10 mg tablet Take 0.5 tablets twice a day by oral route for 30 days. citalopram 10 mg tablet Take 1 tablet every day by oral route as directed for 30 days. desonide 0.05 % topical cream APPLY SPARINGLY AND RUB GENTLY INTO THE AFFECTED AREA(S) BY TOPICAL ROUTE 2 TIMES PER DAY NEEDED levofloxacin 750 mg tablet Take 1 tablet every day by oral route as directed for 10 days. lisinopril 20 mg tablet Take 0.5 [...] oral route as directed for 30 days. metronidazole 500 mg tablet Take 1 tablet every 6 hours by oral route as directed for 10 days. pantoprazole 40 mg tablet,delayed releas e TAKE ONE (1) TABLET(S) BY MOUTH ONCE A DAY. pravastatin 40 mg tablet TAKE ONE (1) TABLET(S) BY MOUTH IN THE EVENING. tramadol 50 mg tablet Take 1 tablet every day by oral route as needed for 7 days. Medications Administered None recorded. Vitals Height Weight BMI Blood Pressure 5 ft 4.5 in 188 lbs 31.8 kg/m2 120/82 mm[Hg] Lab Results Date Name Specimen Result Interpretation Description Value Range Status Address Urinalysis, Dipstick Color Color yellow [facility] ([facility]) [place]: [address] [place] Color Appearance clear [facility] ([facility]) [place]: [address] [place] Color Glucose negative [facility] ([facility]) [place]: [address] [place] Color Bilirubin negative [facility] ([facility]) [place]: [address] [place] Color Ketones negative [facility] ([facility]) [place]: [address] [place] Color Specific [place] 1.020 [facility] ([facility]) [place] [address] [place] Color Blood negative [facility] ([facility] [place]: [address] [place] Color PH 6.0 Vill[facility] ([facility] [place]: [address] [place] Color Protein negative [facility]) [place]: [address] [place] Color Urobilinogen 0.2 [facility] ([facility]) [place]: [address] [place] Color Nitrites negative [facility] ([facility]) [place]: [address] [place] Color Leukocytes negative [facility] ([facility]) [place]: [address] [place] Allergies Code Code System Name Reaction Severity Status Onset 44627 RxNorm Azithromycin Active 012 6809 RxNorm Metformin [...] 01/27/2019 XR, Shoulder, 2 or More View [facility] [place] [address] [place], [place] [phone] (Work Place) 02/15/2019 CT, Abdomen + Pelvis, W/ Contrast [facility] [place] [address] [place], [place] [phone] (Work Place) Vaccine List Vaccine Type influenza, high dose seasonal 08/10/20180.5 mL pneumococcal conjugate PCV 13 10/29/20160.5 mL pneumococcal polysaccharide PPV23 04/13/20180.5 mL Social History Smoking Status Never Smoker Past Encounters 02/15/2019 Left Upper Quadrant Pain; Depression Screening Positive Micky Bowen MD: [address] [place] [phone], Ph. 01/27/2019 Bilateral Shoulder Joint Pain; Pain of Left Hip Joint; Major Depressive Disorder; Generalized Anxiety Disorder Micky Bowen MD: [address] [place] [address], Ph. History of Present Illness Note:LUQ and LLQ pain since 1 week ago, constant at the beginning, now comes and goes. Intensity: 5-10/10. No radiation. Concomitantly, chills, bloating, nausea and belching. Sometimes better after eating. Denies diarrhea, heartburn, constipation or hematuria. Taking pantoprazole every AM. Review of Systems:ROS as noted in the [...] Eyes: Lids and Conjunctivae: non-i njected, no discharge. EOM: EOMI ENMT: Ears: TMs clear. Nose: no si nus tenderness. Lips, Teeth, and Gums: no mouth or lip ulcers. Oropharynx: moist mucous membranes Neck: Neck: supple, trachea midlin e Lungs: Auscultation: breath sounds normal Cardiovascular: Heart Auscultation: RRR, nor mal S1, normal S2, no murmurs. Neck vessels: no carotid bruits Abdomen: Bowel Sounds: normal. Inspec tion and Palpation: soft, non-distended, no guarding, no rebound tenderness, no masses, no CVA tenderness, LUQ tenderness, LLQ tenderness. Liver: non-tender, no hepatomegaly. Spleen: non-tender, no splenomegaly Neurologic: Gait and Station: normal gai t Skin: Inspection and palpation: no rash, no lesions
--- OUTSIDE RECORDS SUMMARY | 2020-03-03 08:41 | XMS REPORT | Encounter Summary ---
Author Organization Unknown Address [address] [place] [address] Phone [phone] Care Team Providers Care Memorial Designer Name Role Phone Dr. Micky Ness 3 [phone] Kurtis Silva MD 82 [phone] Reason for Visit Left hip pain/problem Instructions 1. Pain of left hip joint meloxicam 15 mg tablet orthopedic referral 2. Constipation Linzess 145 mcg capsule 3. 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 Body mass index 30+ - obesity body mass index: care instructions learning about healthy weight 5. Immunization refused Discussion Note: None recorded. Plan of Care Reminders Provider Appointments None recorded. Lab None recorded. Referral Orthopedic Referral 03/08/2019 [facility] Procedures None recorded. Surgeries None recorded. Imaging None recorded. Medications Name Start Date amlodipine 10 mg tablet Take 0.5 tablets twice a day by oral route for 30 days. citalopram 10 mg tablet Take 1 tablet every day by oral route as directed for 30 days. Linzess 145 mcg capsule [...] BMI Blood Pressure 5 ft 4.5 in 193 lbs 32.6 kg/m2 126/74 mm[Hg] Lab Results Date Name Specimen Result Interpretation Description Value Range Status Address Urinalysis, Dipstick Color Color yellow [facility] ([facility]) [place]: [address] [place] Color Appearance clear [facility] ([facility]) [place]: [address] [place] Color Glucose negative [facility] [place]: [address] [place] Color Bilirubin negative [facility] [place]: [address] [place] Color Ketones negative [facility] ([facility] [place]: [address] [place] Color Specific [place] 1.020 [facility] [place]: [address] [place] Color Blood negative [facility] ([facility] [place]: [address] [place] Color PH [address] [facility] ([facility] [place]: [address] [place] Color Protein negative [facility] [place]: [address] [place] Color Urobilinogen 0.2 [facility] [place]: [address] [place] Color Nitrites negative [facility] ([facility]) [place]: [address] [place] Color Leukocytes negative [facility] ([facility]) [place]: [address] [place] Allergies Code Code System Name Reaction Severity Status Onset 17503 RxNorm Azithromycin Active 012 6809 RxNorm Metformin Active 02/27/2012 27130 RxNorm Levofloxacin Active 6922 RxNorm Metronidazole Active [...] by 07/01/2010 Colonoscopy Information not avai lable 02/15/2019 CT, Abdomen + Pelvis, W/ Contrast [facility] [place] [address] [place] [address] (Work Place) 02/23/2019 CT, Abdomen + Pelvis, W/o Contrast [facility] [place] [address] [place] [address] (Work Place) Vaccine List Vaccine Type influenza, high dose seasonal 08/10/20180.5 mL pneumococcal conjugate PCV 13 10/29/20160.5 mL pneumococcal polysaccharide PPV23 04/13/20180.5 mL Social History Smoking Status Never Smoker Past Encounters 03/08/2019 Pain of Left Hip Joint; Constipation; Degenerative Joint Disease of Shoulder Region; Body Mass Index 30+ - Obesity; Immunization Refused Micky Bowen MD: [address] [place] [phone], Ph. 02/18/2019 Left Upper Quadrant Pain; Left Lower Quadrant Pain Micky Bowen MD: [address] [place] [phone], Ph. 02/15/2019 Left Upper Quadrant Pain; Depression Screening Positive Micky Bowen MD: [address] [place] [phone], Ph. History of Present Illness Note:Coming to discuss x-rays results. <div>Still complaining of left hip pain, worse at night, intensity: 7/10.</div> Review of Systems Comprehensive General Adult ROS Reported By: Patient Constitutional: Constitutional: no fever Cardiovascular: Cardiovascular: no chest jamari n, no palpitations, no lightheadedness Respiratory: Respiratory: no cough, no wh eezing, no shortness of breath Gastrointestinal: Gastrointestinal: no nausea, no vomiting, no diarrhea, abdominal pain, constipation Musculoskeletal: Musculoskeletal: no swelling in the extremities, [...] and Muscles: normal movement of all extremities, tenderness. Extremities: no edema Neurologic: Gait and Station: normal gai t Skin: Inspection and palpation: ; L HIP: tenderness with palpation at the level of the greater trochanter. Normal ROM. No deformities or crepitations
--- OUTSIDE RECORDS SUMMARY | 2020-03-03 08:41 | XMS REPORT | Encounter Summary ---
Author Organization Unknown Address [address] [place] [address] Phone [phone] Care Team Providers Care Office Support Assistant Name Role Phone Dr. Micky Ness 3 [phone] Kurtis Silva MD 82 [phone] Reason for Visit other - see typed reason Instructions 1. Left upper quadrant pain 2. Left lower quadrant pain Discussion Note: None recorded. Patient educational handouts: [...] (1) TABLET(S) BY MOUTH IN THE EVENING. sulfamethoxazole 800 mg-trimethoprim 160 mg tablet Take 1 tablet every 12 hours by oral route as directed for 10 days. tramadol 50 mg tablet Take 1 tablet every day by oral route as needed for 7 days. Medications Administered None recorded. Vitals Height Weight BMI Blood Pressure 5 ft 4.5 in 187 lbs 31.6 kg/m2 111/62 mm[Hg] Lab Results Date Name Specimen Result Interpretation Description Value Range Status Address Urinalysis, Dipstick Color Color yellow [facility] [place]: [address] [place] Color Appearance clear [facility] ([facility] [place]: [address] [place] Color Glucose negative [facility] ([facility] [place]: [address] [place] Color Bilirubin negative [facility] ([facility]) [place]: [address] [place] Color Ketones negative [facility] ([facility]) [place]: [address] [place] Color Specific [place] 1.020 [facility] ([facility] [place]: [address] [place] Color Blood negative [facility] [place]: [address] [place] Color PH 6.0 [facility] [place]: [address] [place] Color Protein negative [facility] ([facility]) [place]: [address] [place] Color Urobilinogen 0.2 [facility] ([facility]) [place]: [address] [place] Color Nitrites negative [facility] ([facility] [place]: [address] [place] Color Leukocytes negative [facility] ([facility]) [place]: [address] [place] Allergies Code Code System Name Reaction Severity Status Onset 81922 RxNorm Azithromycin Active 012 6809 RxNorm Metformin Active 02/27/2012 84997 RxNorm Levofloxacin Active 6922 RxNorm Metronidazole Active [...] XR, Shoulder, 2 or More View [facility] [place] [address] [place] [address] (Work Place) 02/15/2019 CT, Abdomen + Pelvis, W/ Contrast [facility] [address] [place] [address] (Work Place) Vaccine List Vaccine Type influenza, high dose seasonal 08/10/20180.5 mL pneumococcal conjugate PCV 13 10/29/20160.5 mL pneumococcal polysaccharide PPV23 04/13/20180.5 mL Social History Smoking Status Never Smoker Past Encounters 02/18/2019 Left Upper Quadrant Pain; Left Lower Quadrant Pain Micky Bowen MD: [address] [place] [phone], Ph. 02/15/2019 Left Upper Quadrant Pain; Depression Screening Positive Micky Bowen MD: [address] [place] [phone], Ph. 01/27/2019 Bilateral Shoulder Joint Pain; Pain of Left Hip Joint; Major Depressive Disorder; Generalized Anxiety Disorder Micky Bowen MD: [address] [place] [phone], Ph. History of Present Illness Note:<div>F/u on LUQ and LLQ pain most likely secondary diverticulitis. Pt was started on levofloxacin and metronidazole but she developed side effects and was switched to bactrim. Pain has decreased progressively, intensity: 1-2/10. Still complaining of occasional nausea, bloating and belching. Denies chills, diarrhea or constipation.</div> Review of Systems:ROS as noted in the [...]
--- OUTSIDE RECORDS SUMMARY | 2020-03-03 08:41 | XMS REPORT | Encounter Summary ---
Author Organization Unknown Address [address] [place] [address] Phone [phone] Care Team Providers Care Booster Pump Oiler Name Role Phone Dr. Micky Ness 3 [phone] Kurtis Silva MD 82 [phone] Helena Bonilla MD 118 [phone] Reason for Visit Left hip pain/problem Instructions [...] HER AN APPOINTMENT. PLEASE FAX RESULTS TO [phone]. 6. Body mass index 30+ - obesity starting a weight loss plan: care inst ructions abnormal weight gain: care instruction s advised to lose weight learning about healthy weight body mass index: care instructions Discussion Note: None recorded. Plan of Care Reminders Provider Appointments None recorded. Lab None recorded. Referral None recorded. Procedures None recorded. Surgeries None recorded. Imaging Bone Density 11/17/2018 [facility] Imaging Medications Name Start Date amlodipine [...] Unilateral, 2 or 3 View [facility] [address] [place] [address] (Work Place) 11/17/2018 Bone Density [facility] [address] [place] [address] (Work Place) Vaccine List Vaccine Type influenza, high dose seasonal 08/10/20180.5 mL pneumococcal conjugate PCV 13 10/29/20160.5 mL pneumococcal polysaccharide PPV23 04/13/20180.5 mL Social History Smoking Status Never Smoker Past Encounters 11/17/2018 Trochanteric Bursitis of Left Hip; At Risk for Falls; Depression Screening; Hyperlipidemia; Postmenopausal State; Body Mass Index 30+ - Obesity Micky Bowen MD: [address] [place] [phone], Ph. 10/27/2018 Pain of Left Hip Joint; Pain in Right Arm; Body Mass Index 30+ - Obesity; Secondary Hyperparathyroidism Micky Bowen MD: [address] [place] [address], Ph. History of Present Illness Note:Coming for [...]
--- NOTE | 2020-03-03 08:43 | Emergency Department Note ---
History of Present Illnes History of Present Illness History of Present Illness This is a 74 year old female . Onset (how long ago): day(s) (1) Radiation: Reports non-radiation Severity: moderate Onset quality: gradual Duration (how long): day(s) (1) Timing of current episode: constant Progression: unchanged Chronicity: new Context: Denies recent illness, Denies recent surgery, Denies recent immobilization, Denies recent travel, Denies trauma/injury, Denies new medications, Denies hx of DVT/PE, Denies non-compliance w/ medications, Denies other Relieving factors: none Exacerbating factors: none Associated symptoms: Reports weakness; Denies chest pain, Denies cough Treatments prior to arrival: none Past Medical/Family History Physician Review I have reviewed the patient's past medical and family history. Any updates have been documented here. Past Medical History Recent Fever: No Clinical Suspicion of Infectio: No New/Unexplained Change in Ment: No Past Medical History: Hypertension, Hyperlipedemia, Osteoarthritis Other Medical History: IRREGULAR HEART BEAT, HYPOGLYCEMIA, REFLUX, ARTHRITIS Other Surgery: COCCYX REMOVED Social History Smoking Cessation: Never Smoker Alcohol Use: None Any Illegal Drug Use: No Other Last Tetanus: Not up to date Review of Systems Review of Systems Constitutional: Reports weakness EENTM: Reports no symptoms Cardiovascular: Reports no symptoms Respiratory: Reports no symptoms Gastrointestinal: Reports no symptoms Genitourinary: Reports no symptoms Musculoskeletal: Reports no symptoms Integumentary: Reports no symptoms Neurological: Reports other (dizziness) Psychological: Reports no symptoms Endocrine: Reports no symptoms Hematological/Lymphatic: Reports no symptoms Physical Exam Related Data Allergies: Coded Allergies: Cephalexin Monohydrate (Verified Allergy, Intermediate, 02/27/12) Penicillins (Verified Allergy, Intermediate, 02/27/12) azithromycin (Verified Allergy, Intermediate, 02/27/12) ibuprofen (Verified Allergy, Intermediate, 02/27/12) metformin (Verified Allergy, Intermediate, 02/27/12) Vital signs reviewed: Yes Physical Exam CONSTITUTIONAL Constitutional: Present well-developed, Present well-nourished HENT HENT: Present normocephalic, Present atraumatic, Present oropharynx clear/moist, Present nose normal HENT L/R: Present left ext ear normal, Present right ext ear normal EYES Eyes: Reports PERRL, Reports conjunctivae normal NECK Neck: Present ROM normal PULMONARY Pulmonary: Present effort normal, Present breath sounds normal CARDIOVASCULAR Cardiovascular: Present regular rhythm, Present heart sounds normal, Present capillary refill normal, Present normal rate GASTROINTESTINAL Abdominal: Present soft, Present nontender, Present bowel sounds normal GENITOURINARY Genitourinary: Present exam deferred SKIN Skin: Present warm, Present dry MUSCULOSKELETAL Musculoskeletal: Present ROM normal NEUROLOGICAL Neurological: Present alert, Present oriented x 3, Present no gross motor or sensory deficits PSYCHOLOGICAL Psychological: Present mood/affect normal, Present judgement normal Results Laboratory Laboratory Laboratory Tests Test 03/03/20 09:00 White Blood Count 15.40 x10e3/uL (4.8-10.8) Red Blood Count 4.87 x10e6/uL (3.6-5.1) Hemoglobin 13.8 g/dL (12.0-16.0) Hematocrit 43.5 % (34.2-44.1) Mean Corpuscular Volume 89.3 fL (81-99) Mean Corpuscular Hemoglobin 28.3 pg (28-32) Mean Corpuscular Hemoglobin Concent 31.7 g/dL (31-35) Red Cell Distribution Width 13.3 % (11.7-14.4) Platelet Count 367 x10e3/uL (140-360) Neutrophils (%) (Auto) 82.4 % (38.7-80.0) Lymphocytes (%) (Auto) 13.6 % (18.0-39.1) Monocytes (%) (Auto) 3.1 % (4.4-11.3) Eosinophils (%) (Auto) 0.0 % (0.0-6.0) Basophils (%) (Auto) 0.2 % (0.0-1.0) Neutrophils # (Auto) 12.7 (2.1-6.9) Lymphocytes # (Auto) 2.1 (1.0-3.2) Monocytes # (Auto) 0.5 (0.2-0.8) Eosinophils # (Auto) 0.0 (0.0-0.4) Basophils # (Auto) 0.0 (0.0-0.1) Absolute Immature Granulocyte (auto 0.11 x10e3/uL (0-0.1) Urine Color Yellow (YELLOW) Urine Clarity Clear (CLEAR) Urine pH 6 (5 - 7) Urine Specific [place] 1.020 (1.010-1.025) Urine Protein Negative (NEGATIVE) Urine Glucose (UA) Negative (NEGATIVE) Urine Ketones Negative (NEGATIVE) Urine Blood Small (NEGATIVE) Urine Nitrite Negative (NEGATIVE) Urine Bilirubin Negative (NEGATIVE) Urine Urobilinogen 0.2 mg/dL (0.2 - 1) Urine Leukocyte Esterase Small (NEGATIVE) Urine RBC 0-5 /HPF (0-5) Urine WBC 6-10 /HPF (0-5) Urine Epithelial Cells Few /LPF (NONE) Urine Bacteria Few /HPF (NONE) Sodium Level 137 mmol/L (136-145) Potassium Level 4.4 mmol/L (3.5-5.1) Chloride Level 103 mmol/L (98-107) Carbon Dioxide Level 23 mmol/L (22-29) Anion Gap 15.4 mmol/L (8-16) Blood Urea Nitrogen 29 mg/dL (7-26) Creatinine 1.11 mg/dL (0.57-1.11) Estimat Glomerular Filtration Rate 48 ML/MIN (60-) BUN/Creatinine Ratio 26 (6-25) Glucose Level 147 mg/dL (74-118) Calcium Level 10.2 mg/dL (8.4-10.2) Total Bilirubin 0.5 mg/dL (0.2-1.2) Aspartate Amino Transf (AST/SGOT) 19 IU/L (5-34) Alanine Aminotransferase (ALT/SGPT) 21 IU/L (0-55) Alkaline Phosphatase 89 IU/L (40-150) Creatine Kinase 77 IU/L (29-168) Creatine Kinase MB 1.40 ng/mL (0-5.0) Troponin I 0.004 ng/mL (0-0.300) Total Protein 8.1 g/dL (6.5-8.1) Albumin 4.3 g/dL (3.5-5.0) Globulin 3.8 g/dL (2.3-3.5) Albumin/Globulin Ratio 1.1 (0.8-2.0) Lab results reviewed: Yes Imaging Imaging results reviewed: Yes Impressions [address] [address] Patient Name: RUI MAZARIEGOS MR #: [id number] : 1945 Age/Sex: 74/F Req #: [id number] Adm Physician: Ordered by: REGGIE MUNOZ DO Report #: [id number] Location: ER Room/Bed: Procedure: [id number] DX/CHEST SINGLE (PORTABLE) Exam Date: 03/03/20 Exam Time: 1020 REPORT STATUS: Signed EXAMINATION: CHEST SINGLE (PORTABLE) INDICATION: ^HTN ^[id number] ^1020 COMPARISON: 05/01/2018 FINDINGS: AP view TUBES and LINES: None. LUNGS: Lungs are well inflated. Lungs are clear. There is no evidence of pneumonia or pulmonary edema. PLEURA: No pleural effusion or pneumothorax. HEART AND MEDIASTINUM: The left atrium appears prominent. Unchanged mild atherosclerotic calcifications of the aortic arch. BONES AND SOFT TISSUES: No acute osseous lesion. Soft tissues are unremarkable. UPPER ABDOMEN: No free air under the diaphragm. IMPRESSION: No acute thoracic abnormality. Signed by: Dr. Derrick Breaux M.D. on 03/03/2020 10:25 AM Dictated By: DERRICK BREAUX MD 1025 Transcribed By: SOPHIE on 03/03/20 1025 COPY TO: REGGIE MUNOZ DO~ Procedures 12 Lead ECG Interpretation ECG Interpretation : ECG: ECG 1 Oceanology Teacher: Interpreted by ED physician Date: Mar 03, 2020 Time: 09:04 Prior ECG tracings: reviewed Rhythm: sinus rhythm Rate: normal BPM: 65 QRS axis: normal Pacin% capture Clinical Impression: normal ECG Assessment & Plan Medical Decision Making MDM 74 yof with dizziness and elevated Blood pressure. CBC, CMP, and EKG ordered to rule out cardiac pathology. Patient's blood pressure continues to remain elevated despite intervention. Plan to admit to the medicine service for observation and BP control. Assessment & Plan Final Impression: (1) Dizziness (2) Hypertension (3) Leukocytosis Depart Disposition: ADMITTED Last Vital Signs Date Time Temp Pulse Resp B/P (MAP) Pulse Ox O2 Delivery O2 Flow Rate FiO2 03/03/20 09:06 67 14 202/73 100 03/03/20 08:43 97.5 Home Meds Reported Medications Metoprolol Tartrate (METOPROLOL TARTRATE) 25 Mg Tablet, 25 MG PO BID, TAB 04/26/18 Lisinopril (LISINOPRIL) 10 Mg Tablet, 40 MG PO DAILY, #30 TAB 04/25/18 Pravastatin Sodium (PRAVASTATIN SODIUM) 40 Mg Tablet, 40 MG PO HS, #90 04/22/18 Terbinafine Hcl (TERBINAFINE HCL) 250 Mg Tablet, 250 MG PO DAILY, #30 04/22/18 Amlodipine Besylate (AMLODIPINE BESYLATE) 10 Mg Tablet, 10 MG PO DAILY, #90 04/22/18 Alprazolam (ALPRAZOLAM) 0.5 Mg Tablet, 0.5 MG PO HS PRN for ANXIETY, #30 04/22/18 Clonidine Hcl (CLONIDINE HCL) 0.1 Mg Tablet, 0.1 MG PO BID PRN for HIGH BLOOD PRESSURE, #180 04/22/18 Medications in the ED Aspirin 81 mg PRN ONCE PO Last administered on 03/03/20at 09:05; Admin Dose 81 MG; Start 03/03/20 at 08:45; Stop 03/03/20 at 09:11; Status DC Sodium Chloride 1,000 ml @ 100 mls/hr Q10H STAT IV Last administered on 03/03/20at 09:05; Admin Dose 100 MLS/HR; Start 03/03/20 at 08:44; Stop 03/03/20 at 18:43 Aspirin 81 mg STK-MED ONCE PO ; Start 03/03/20 at 08:55; Stop 03/03/20 at 08:50; Status DC Sodium Chloride 1,000 ml @ ud STK-MED ONCE .ROUTE ; Start 03/03/20 at 09:00; Stop 03/03/20 at 08:54; Status DC Hydralazine HCl 10 mg Q4H PRN IV HIGH BLOOD PRESSURE; Start 03/03/20 at 10:45; Stop 04/02/20 at 10:44; Status REGGIE LOPEZ DO Mar 03, 2020 08:43
[2020-03-03] MEDS ORDERED: SODIUM CHLORIDE 0.9% 1000ML 1,000 ML IV STA (08:44)
[2020-03-03] MEDS ORDERED: ASPIRIN 81 MG CHEW TAB PO ONE (08:45)
[2020-03-03] MEDS ORDERED: ASPIRIN 81 MG ENTERIC COATED PO ONE (08:55)
[2020-03-03] MEDS ORDERED: SODIUM CHLORIDE 0.9% 1000ML 1,000 ML ONE (09:00)
[2020-03-03 09:20] LABS: BASOPHILS % 0.2 % (0.0-1.0); HEMATOCRIT 43.5 % (34.2-44.1); HEMOGLOBIN 13.8 g/dL (12.0-16.0); LYMPHOCYTES # (AUTO) 2.1 (1.0-3.2); LYMPHOCYTES % 13.6 % (18.0-39.1); MEAN CORPUSCULAR HEMOGLOBIN 28.3 pg (28-32); MEAN CORPUSCULAR HGB CONC 31.7 g/dL (31-35); MEAN CORPUSCULAR VOLUME 89.3 fL (81-99); MONOCYTES # (AUTO) 0.5 (0.2-0.8); MONOCYTES % 3.1 % (4.4-11.3); NEUTROPHILS # (AUTO) 12.7 (2.1-6.9); NEUTROPHILS % 82.4 % (38.7-80.0); PLATELET COUNT 367 x10e3/uL (140-360); RED BLOOD COUNT 4.87 x10e6/uL (3.6-5.1); RED CELL DISTRIBUTION WIDTH 13.3 % (11.7-14.4)
[2020-03-03 09:23] LABS: CLARITY,URINE CLEAR (CLEAR); COLOR,URINE YELLOW (YELLOW); LEUKOCYTE ESTERASE ,URINE SMALL (NEGATIVE)
[2020-03-03 09:24] LABS: BILIRUBIN,URINE NEGATIVE (NEGATIVE); KETONES,URINE NEGATIVE (NEGATIVE); NITRITE,URINE NEGATIVE (NEGATIVE); PROTEIN,URINE DIPSTICK NEGATIVE (NEGATIVE); URINE UROBILINOGEN 0.2 mg/dL (0.2 - 1)
[2020-03-03 09:31] LABS: BACTERIA,URINE FEW /HPF; EPITHELIAL CELLS,URINE FEW /LPF; RBC,URINE 0-5 /HPF (0-5)
[2020-03-03 09:35] LABS: ALBUMIN 4.3 g/dL (3.5-5.0); ALBUMIN/GLOBULIN RATIO 1.1 (0.8-2.0); ANION GAP 15.4 mmol/L (8-16); CALCIUM 10.2 mg/dL (8.4-10.2); CREATININE, SERUM 1.11 mg/dL (0.57-1.11); POTASSIUM 4.4 mmol/L (3.5-5.1)
[2020-03-03 09:42] LABS: CREATINE KINASE MB 1.4 ng/mL (0-5.0)
--- NOTE | 2020-03-03 10:28 | Diagnostic Imaging Report ---
EXAMINATION: CHEST SINGLE (PORTABLE) INDICATION: ^HTN ^[id number] ^1020 COMPARISON: 05/01/2018 FINDINGS: AP view TUBES and LINES: None. LUNGS: Lungs are well inflated. Lungs are clear. There is no evidence of pneumonia or pulmonary edema. PLEURA: No pleural effusion or pneumothorax. HEART AND MEDIASTINUM: The left atrium appears prominent. Unchanged mild atherosclerotic calcifications of the aortic arch. BONES AND SOFT TISSUES: No acute osseous lesion. Soft tissues are unremarkable. UPPER ABDOMEN: No free air under the diaphragm. IMPRESSION: No acute thoracic abnormality. Signed by: Dr. Barbara Parmar M.D. on 03/03/2020 10:25 AM
--- NOTE | 2020-03-03 10:31 | NUR ---
{null, BLANKETS, PILLOW, SOCKS, BED RE-ADJUSTMENTS MULTIPLE TIMES, DOOR OPEN, DOOR CLOSED, LIGHTS OFF, LIGHTS ON, IVF COMPLETED. PT IN NO DISTRESS AT ANYTIME SINCE ARRIVAL. MULTIPLE ATTEMPTS TO CONTINUE TO PLEASE PT. UPDATED MULTIPLE TIMES. CHG AND MD NOTIFIED OF PT MULTIPLE REOCCURRING CONCERNS. }
[2020-03-03] MEDS ORDERED: HYDRALAZINE HCL 20 MG/ML VIAL IV PRN (10:45)
--- OUTSIDE RECORDS SUMMARY | 2020-03-03 11:57 | XMS REPORT | Continuity of Care Document ---
Author Author [facility] Organization [facility] Address [address] [place] [address] Phone Unavailable Care Team Providers Care Cra Officer Name Role Phone NONSTAFF PCP Unavailable REGGIE MUNOZ Attphys Unavailable Carol BARRON Attphys Unavailable HETAL WILLINGHAM Attphys Unavailable Jay SHERMAN Attphys Unavailable HETAL WILLINGHAM Admphys Unavailable Payers Payer Name Policy Type Policy Number Effective Date Expiration Date Nguyễn campbell [facility] [id number] 2016 00:00:00 [facility] Medicare A & B [id number] 2008 00:00:00 [facility] Problems Condition Name Condition Details Condition Category Status Onset Date Resolution Date Last Treatment Date Treating Clinician Comments Source Prediabetes Prediabetes Problem Active 2018-03-31 00:00:00 [facility] Blood chemistry abnormal Blood Chemistry Abnormal Problem Acti ve 2016-10-29 00:00:00 [facility] Mixed hyperlipidemia Mixed [facility] Gastroes[facility] disease without esophagitis Ga stroesophageal Reflux Disease without Esophagitis Problem Active 2016-10-08 00:00:00 [facility] Knee pain Knee Pain Problem Active 2016-10-08 00:00:00 [facility] Pure hypercholesterolemia Pure Hypercholesterolemia Problem Ac tive 2016-05-21 00:00:00 [facility] Body mass index 30+ - obesity Body Mass Index 30+ - Obesity Problem Active 2016-05-21 00:00:00 [facility] Benign essential hypertension Benign Essential Hypertension Problem Active 2016-05-21 00:00:00 [facility] Hyperglycemia Hyperglycemia Problem Active 2016-05-21 00:00:00 [facility] Serum creatinine raised Serum Creatinine Raised Problem Active 2016-05-21 00:00:00 [facility] Malignant hypertension Problem Active 2014-05-27 00:00:00 [facility] Chest pain Chest pain Problem Active [facility] Hypertension Hypertension Problem Active [facility] Allergies, Adverse Reactions, Alerts Allergy Name Allergy Type Status Severity Reaction(s) Onset Date Inacti ve Date Treating Clinician Comments Source Penicillins DA Active U 2019-09-22 00:00:00 [facility] Cephalosporins DA Active U 2019-09-22 00:00:00 [facility] penicillin V DA Active U 2019-09-22 00:00:00 [facility] cephalexin DA Active U 2019-09-22 00:00:00 [facility] Not Converted 80. See Text. DA Active U 2019-09-22 00:00 :00 [facility] Penicillins DA Active U 2017-05-22 00:00:00 [facility] Cephalosporins DA Active U 2017-05-22 00:00:00 [facility] penicillin V DA Active U 2017-05-22 00:00:00 [facility] cephalexin DA Active U 2017-05-22 00:00:00 [facility] Not Converted 80. See Text. DA Active U 2017-05-22 00:00 :00 [facility] .SPICES DA Active U 2017-05-22 00:00:00 [facility] CAFFEINE DA Active U 2017-05-22 00:00:00 [facility] CHOCOLATE DA Active U 2017-05-22 00:00:00 [facility] No Known Contrast Allergies DA Active U 2017-05-22 00:00: 00 [facility] No Known Other Allergies DA Active U 2017-05-22 00:00:00 [facility] Cephalexin Monohydrate Allergy to Substance Active Moderate 2012-02-27 00:00:00 [facility] Penicillin Allergy to Substance Active Moderate 2012-02-27 00:00:0 0 [facility] Ibuprofen Allergy to Substance Active Moderate 2012-02-27 00:00:00 [facility] Azithromycin Allergy to Substance Active Moderate 2012-02-27 00:00 :00 [facility] Metformin Allergy to Substance Active Moderate 2012-02-27 00:00:00 [facility] IBUPROFEN DA Active U 2001-06-04 00:00:00 [facility] PENICILLIN DA Active U 2001-06-04 00:00:00 [facility] PENICILLINS Allergy to substance Active [facility] Levofloxacin Allergy to substance Active [facility] Metronidazole Allergy to substance Active [facility] Meloxicam Allergy to substance Active [facility] Social History Smoking Status Start Date Stop Date Source Never Smoker [facility] mary Medications Ordered Medication Name Filled Medication [...] day by oral route for 30 days. [facility] ice Bactrim DS 800 mg-160 mg tablet [...] oral route as directed for 10 days. [facility] ice Linzess 145 mcg capsule Take 1 capsule e very day by oral route as needed for 30 days. Linzess 145 mcg capsule Take 1 capsule e very day by oral route as needed for 30 days. No Linzess 145 mcg capsule Take 1 capsule every day by oral route as needed for 30 days. [facility] lisinopril 20 mg tablet Take 0.5 tablets twice a day by oral route as directed for 30 days. lisinopril 20 mg tablet Take 0.5 tablets twice a day by oral route as directed for 30 days. No lisinopril 20 mg tablet Take 0.5 tablets twice a day by oral route as directed for 30 days. [facility] Low Dose Aspirin 81 mg tablet,delayed re lease Take 1 tablet every day by oral route. Low Dose Aspirin 81 mg tablet,delayed re lease Take 1 tablet every day by oral route. No 1 Q1D Low Dose Asp irin 81 mg tablet,delayed release Take 1 tablet every day by oral route. [facility] Medrol (Edson) 4 mg tablets in a dose pack Take 1 dose p k by oral route. Medrol (Edson) 4 mg tablets in a dose pack Take 1 dose pk by oral route. No 1dose pk(s) Medrol (Edson) 4 mg tablets in a dose pack Take 1 dose pk by oral route. [facility] metoprolol tartrate 25 mg tablet Take 0. 5 tablets twice a day by oral route as directed for 30 days. metoprolol tartrate 25 mg tablet Take 0. 5 tablets twice a day by oral route as directed for 30 days. No metoprolol tartrate 25 mg tablet Take 0.5 tablets twice a day by oral route as directed for 30 days. [facility] mupirocin 2 % topical ointment APPLY A [...] DAY FOR UP TO 10 DAYS. [facility] pantoprazole 40 mg tablet,delayed releas e TAKE ONE (1) TABLET(S) BY MOUTH ONCE A DAY. pantoprazole 40 mg tablet,delayed releas e TAKE ONE (1) TABLET(S) BY MOUTH ONCE A DAY. No pantoprazole 40 mg tablet,delayed release TAKE ONE (1) TABLET(S) BY MOUTH ONCE A DAY. [place] pravastatin 40 mg tablet TAKE ONE (1) TABLET(S) BY JESUS TH IN THE EVENING. pravastatin 40 mg tablet TAKE ONE (1) TABLET(S) BY MOUTH IN THE EVENING. No pravastatin 40 mg tablet LINDSEY E ONE (1) TABLET(S) BY MOUTH IN THE EVENING. [facility] Tylenol 325 mg capsule Take 1 capsule [...] Yes .5 Bedtime as needed for Anxiety [facility] Amlodipine Besylate 10 Mg Tablet Amlodipine Besylate 10 Mg Tablet Yes 10 Daily [facility] Clonidine Hcl 0.1 Mg Tablet Clonidine Hcl 0.1 Mg Tablet Yes .1 Twice A Day as needed for High Blood Pressure [facility] Lisinopril 10 Mg Tablet Lisinopril 10 Mg Tablet Yes 40 Daily [facility] Metoprolol Tartrate 25 Mg Tablet Metoprolol Tartrate 25 Mg Tablet Yes 25 Twice A Day [facility] Pravastatin Sodium 40 Mg Tablet Pravastatin Sodium 40 Mg Tablet Yes 40 Bedtime [facility] Terbinafine Hcl 250 Mg Tablet Terbinafine Hcl 250 Mg Tablet Yes 250 Daily [facility] Metoprolol Tartrate 50 Mg Tablet, 100 Mg Oral Metoprol ol Tartrate 50 Mg Tablet, 100 Mg Oral 2018-04-26 00:00:00 No 100 Daily At 170 0 [facility] Amlodipine Besylate (Norvasc) 10 Mg Tab, 10 Mg Oral Am lodipine Besylate (Norvasc) 10 Mg Tab, 10 Mg Oral 2018-04-22 00:00:00 No 10 Bedtime [facility] Hydrochlorothiazide 25 Mg Tablet, 25 Mg Oral Hydrochlo rothiazide 25 Mg Tablet, 25 Mg Oral 2018-04-22 00:00:00 No 25 Daily [facility] Lisinopril 40 Mg Tablet, 40 Mg Oral Lisinopril 40 Mg Tablet, 40 Mg Oral 2018-04-22 00:00:00 No 40 Bedtime [facility] Metoprolol Tartrate 25 Mg Tablet, 25 Mg Oral Metoprolo l Tartrate 25 Mg Tablet, 25 Mg Oral 2018-04-22 00:00:00 No 25 [facility] Pantoprazole Sodium (Protonix) 40 Mg Tablet.dr, 40 Mg Oral Pantoprazole Sodium (Protonix) 40 Mg Tablet.dr, 40 Mg Oral 2018-04-22 00:00:00 No 40 Daily [facility] Pravastatin Sodium 20 Mg Tablet, Pravastatin Sodium 20 Mg Tablet , 2018-04-22 00:00:00 No [facility] Esomeprazole Magnesium (Nexium) 40 Mg Capsule., 40 M g Oral Esomeprazole Magnesium (Nexium) 40 Mg Capsule.dr, 40 Mg Oral 2014-07-05 00:00:00 No 40 Daily [facility] Sulfamethoxazole/Trimethoprim (Bactrim Ds Tablet) 1 Ea ch Tablet, 160 Mg Oral Sulfamethoxazole/Trimethoprim (Bactrim Ds Tablet) 1 Each Tablet, 160 Mg Oral 2014-07-05 00:00:00 No 160 Daily [facility] Immunizations Ordered Immunization Name Filled Immunization Name Date Status Comments Source influenza, high dose seasonal influenza, high dose seasonal 2017 14:56:10 Completed [facility] pneumococcal polysaccharide PPV23 pneumococcal polysaccharid e PPV23 2018-04-13 12:46:00 Completed [facility] ice pneumococcal conjugate PCV 13 pneumococcal conjugate PCV 13 2016 12:23:02 Completed [facility] Vital Signs Vital Name Observation Time Observation Value Comments Source BP Diastolic 2019-04-27 00:00:00 70 mm[Hg] [facility] Height 2019-04-27 00:00:00 64.5 [in_i] [facility] BMI (Body Mass Index) 2019-04-27 00:00:00 31.8 kg/m2 [facility] BP Systolic 2019-04-27 00:00:00 140 mm[Hg] [facility] Body Weight 2019-04-27 00:00:00 188 [lb_av] [facility] BP Diastolic 2019-04-15 00:00:00 62 mm[Hg] [facility] Height 2019-04-15 00:00:00 64.5 [in_i] [facility] BMI (Body Mass Index) 2019-04-15 00:00:00 32.2 kg/m2 [facility] BP Systolic 2019-04-15 00:00:00 116 mm[Hg] [facility] Body Weight 2019-04-15 00:00:00 190.6 [lb_av] [facility] BP Diastolic 2019-03-08 00:00:00 74 mm[Hg] [...] Practice BP Systolic 2018-11-17 00:00:00 130 mm[Hg] [facility] Body Weight 2018-11-17 00:00:00 186 [lb_av] [facility] BP Diastolic 2018-10-27 00:00:00 68 mm[Hg] [facility] Height 2018-10-27 00:00:00 65 [in_i] [facility] BMI (Body Mass Index) 2018-10-27 00:00:00 30.6 kg/m2 [facility] BP Systolic 2018-10-27 00:00:00 130 mm[Hg] [facility] Body Weight 2018-10-27 00:00:00 183.8 [lb_av] [facility] Procedures Procedure Date / Time Performed Performing Clinician [facility] e X-RAY OF FOOT 3+ VIEW 2019-04-15 00:00:00 [facility] CT, abdomen + pelvis, w/o contrast 2019-02-23 00:00:[address] [facility] [address], abdomen + pelvis, w/ contrast 2019-02-15 00:00:00 [facility] X-RAY OF SHOULDER 2 VIEW 2019-01-27 00:00:00 [facility] bone density 2018-11-17 00:00:00 [facility] X-RAY HIP UNLIATERAL (2-3 VIEWS) 2018-10-27 00:00:00 [facility] US abdomen limited 2018-04-23 00:00:00 HETAL WILLINGHAM [facility] X-ray of chest, two views 2018-04-22 00:00:00 ALEYDA BARRON CH, I [facility] Computed tomography of brain without radiopaque contrast 201 04-24-17 00:00:00 DUTCH SHERMAN [facility] Colonoscopy 2010-07-01 00:00:00 [facility] ly [facility] Encounters Start Date/Time End Date/Time Encounter Type Admission Type Attendi [facility] Care Department Encounter ID Source 2019-04-27 00:00:00 2019-04-27 00:00:00 Micky candelaria MD: [id number] [place] [address], Ph. [facility] - [facility] [id number] [facility] 2019-04-15 00:00:00 2019-04-15 00:00:00 Micky candelaria MD: [id number] [place] [address], Ph. [facility] [place] [facility] - [facility] [id number] [facility] 2019-03-08 00:00:00 2019-03-08 00:00:00 Micky candelaria MD: [address] [place] [address], Ph. [facility] [place] [facility] - [facility] [id number] [facility] 2019-02-18 00:00:00 2019-02-18 00:00:00 Micky candelaria MD: [address] [place] [address], Ph. [facility] [place] [facility] - [facility] [id number] [facility] 2019-02-15 00:00:00 2019-02-15 00:00:00 Micky candelaria MD: [address] [place] [address], Ph. [facility] [place] [facility] - [facility] [id number] [facility] 2019-01-27 00:00:00 2019-01-27 00:00:00 Micky candelaria MD: [address] [place] [address], Ph. [facility] [place] [facility] - [facility] [id number] [facility] 2018-11-17 00:00:00 2018-11-17 00:00:00 Micky candelaria MD: [address] [place] [address], Ph. [facility] [place] - [facility] - [facility] [id number] [facility] 2018-10-27 00:00:00 2018-10-27 00:00:00 Micky candelaria MD: [address] [place] [address], Ph. [facility] [place] - [facility] - [facility] [id number] [facility] 2018-05-01 22:22:00 2018-05-02 01:20:00 Departed Emergency Room 1 ALEYDA BARRON [facility] [id number] [facility] 2018-04-23 00:08:00 2018-04-26 19:28:00 Discharged Inpatient (obs) 1 HETAL WILLINGHAM [facility] [id number] [facility] 2018-01-05 21:38:00 2018-01-05 23:37:00 Departed Emergency Room ER DUTCH SHERMAN [facility] [id number] [facility] 2017-05-26 19:50:00 2017-05-26 23:18:00 Departed Emergency Room [facility] [id number] [facility] Results Test Description Test Time Test Comments Results Result Comments Source CHEST SINGLE (PORTABLE) 2020-03-03 10:24:00 [facility] [address] [place] [address] Patient Name: RUI MAZARIEGOS MR #: [id number] : 1945 Age/Sex: 74/F Req #: [id number] Adm Physician: Ordered by: REGGIE MUNOZ DO Report #: [id number] Location: ER Room/Bed: Procedure: [id number] DX/CHEST SINGLE (PORTABLE) Exam Date: 03/03/20 Exam Time: 1020 REPORT STATUS: Signed EXAMINATION: CHEST SINGLE (PORTABLE) INDICATION: [id number] [id number] COMPARISON: 05/01/2018 FINDINGS: AP view TUBES and LINES: None. LUNGS: Lungs are well inflated. Lungs are clear. There is no evidence of pneumonia or pulmonary edema. PLEURA: No pleural effusion or pneumothorax. HEART AND MEDIASTINUM: The left atrium appears prominent. Unchanged mild atherosclerotic calcifications of the aortic arch. BONES AND SOFT TISSUES: No acute osseous lesion. Soft tissues are unremarkable. UPPER ABDOMEN: No free air under the diaphragm. IMPRESSION: No acute thoracic abnormality. Signed by: Dr. Barbara Parmar M.D. on 03/03/2020 10:25 AM Dictated By: BARBARA PARMAR MD 1025 Transcribed By: SOPHIE on 03/03/20 1025 COPY TO: REGGIE MUNOZ DO - XR CHEST 1 V 2019-09-22 21:55:00 FAX: Reuben Vega MD [place]: St: REG -- Name: RUI MAZARIEGOS [facility] : 1945 Age/S: 74/F [address] [facility] Unit #: [id number] Loc: [place] [address] Phys: Reuben Vega MD Acct: [id number] Dis Date: Status: REG ER PHONE #: [phone] Exam Date: 09/22/20192102 FAX #: [phone] Reason: Shortness of Breath EXAMS: CPT CODE: [id number] XR CHEST 1 V 65933 REASON FOR EXAM: Shortness of Breath Exam Order Date: 09/22/2019 8:08 PM Ordering M.DTiffani: Reuben Vega MD PROCEDURE: - XR CHEST [...] limits. IMPRESSION: No acute cardiopulmonary process. Location: [facility] at 2155 Reported and signed by: Ino March MD CC: Reuben Vega MD Technologist: RT Ellen(R Trnscrd Date/Time/By: 09/22/2019 (2154) : By: [email or web address] Orig Print D/T: S: 09/22/2019 (2157) PAGE [...] code = CA) 9.1 mg/dL 8.5-10.1 N [id number] 21:09:00* Test Item Value Reference Range Interpretation Comments MAGNESIUM (test code = MAG) 2.1 mg/dL 1.8-2.4 N TSH REFLEX TO [id number] 21:09:00* Test Item Value Reference Range Interpretation Comments TSH REFLEX TO FT4 (test code = TSHREFLEX) 1.5 0.4-5.5 N [id number] 21:09:00* Test Item Value Reference Range Interpretation Comments TROPONIN-I (test code = TROPI) <0.015 ng/mL 0-0.045 N B-TYPE NATRIURETIC [id number] 21:05:00* Test Item Value Reference Range Interpretation Comments B-TYPE NATRIURETIC PEPTIDE (test code = BNP) 47.34 pgram/mL 0-100 N PROTHROMBIN [id number] 20:54:00* Test Item Value Reference Range Interpretation [...] (2.5-3.5) IS PATIENT ON ANTICOAGULANTS? NTHROMBOPLASTIN TIME [id number] 20:54:00* Test Item Value Reference Range Interpretation Comments THROMBOPLASTIN TIME PARTIAL (test code = PTT) 36.6 seconds 25.0-36. 5 H IS PATIENT ON ANTICOAGULANTS? NBASIC METABOLIC [id number] 20:54:00* Test Item Value Reference Range Interpretation [...] CALCIUM (test code = CA) mg/dL 8.5-10.1 [id number] 20:54:00* Test Item Value Reference Range Interpretation Comments MAGNESIUM (test code = MAG) mg/dL 1.8-2.4 TSH REFLEX TO [id number] 20:54:00* Test Item Value Reference Range Interpretation Comments TSH REFLEX TO FT4 (test code = TSHREFLEX) 0.4-5.5 [id number] 20:54:00* Test Item Value Reference Range Interpretation Comments TROPONIN-I (test code = TROPI) ng/mL 0-0.045 CBC W/O [id number] 20:40:00* Test Item Value Reference Range Interpretation [...] MPV) 10.8 fL 6.7-11.0 N CBC W/O [id number] 20:36:00* Test Item Value Reference Range Interpretation [...] Thyroid Stimulating Hormone (TSH) (test code = 15115-4) 0.630 0.350-4.940 [facility] Kinase [id number] 00:04:00* Test Item Value Reference Range Interpretation Comments Creatine Kinase MB (test code = 74565-1) 1.30 0-5.0 [facility] HospitalTroponin [id number] 00:04:00* Test Item Value Reference Range Interpretation Comments Troponin I (test code = BIR8544) 0.005 0-0.300 [facility] ([facility])2018-05-02 00:02:00 [place] [address] Patient Name: RUI MAZARIEGOS MR #: [id number] : 1945 Age/Sex: 72/F Req #: [id number] Adm Physician: Ordered by: SHAHANA MCCLENDON [employer] Report #: [id number] Location: ER Room/Bed: Procedure: [id number] DX/CHEST SINGLE (PORTABLE) E xam Date: 05/01/18 [...] 03 AM Dictated By: WENDY LEVI MD 0003 Transcribed By: SOPHIE on 05/02/18 0003 COPY TO: SHAHANA MCCLENDON NP Sodium [id number] 00:01:00* Test Item Value Reference Range Interpretation Comments Sodium Level (test code = 2951-2) 137 136-145 [facility]assium [id number] 00:01:00* Test Item Value Reference Range Interpretation Comments Potassium Level (test code = 2823-3) 4.7 3.5-5.1 [facility] HospitalChloride [id number] 00:01:00* Test Item Value Reference Range Interpretation Comments Chloride Level (test code = 2075-0) 103 98-107 [facility] HospitalCarbon Dioxide [id number] 00:01:00* Test Item Value Reference Range Interpretation Comments Carbon Dioxide Level (test code = 2028-9) 21 22-29 L [facility] HospitalAnion [id number] 00:01:00* Test Item Value Reference Range Interpretation Comments Anion Gap (test code = 20987-0) 17.7 8-16 H [facility] Hospital[facility] Urea [id number] 00:01:00* Test Item Value Reference Range Interpretation Comments Blood Urea Nitrogen (test code = 3094-0) 40 7-26 H [facility] HospitalCreatinine2018-08-12 00:01:00* Test Item Value Reference Range Interpretation Comments Creatinine (test code = 2160-0) 1.41 0.57-1.11 H [facility] HospitalBUN/Creatinine [id number] 00:01:00* Test Item Value Reference Range Interpretation Comments BUN/Creatinine Ratio (test code = 3097-3) 28 6-25 H [facility] HospitalEstimat Glomerular Filtration Rate 2018-05-02 00:01:00* Test Item Value Reference Range Interpretation Comments Estimat Glomerular Filtration Rate (test code = 40801-4) 36 >60 L Ranges were taken from the National Kidney Disease Education Program and the [facility] literature.Reference ranges:60 or greater: Txtidr57-50 ( for 3 consecutive months): Chronic kidney disease 15 or less: Kidney failureCH[facility]Glucose [id number] 00:01:00* Test Item Value Reference Range Interpretation Comments Glucose Level (test code = BPC1510) 121 74-118 H [facility] HospitalCalcium Uiyfi1951-01-22 00:01:00* Test Item Value Reference Range Interpretation Comments Calcium Level (test code = 66182-7) 10.3 8.4-10.2 H [facility] HospitalTotal Armuqdiym9110-23-31 00:01:00* Test Item Value Reference Range Interpretation Comments Total Bilirubin (test code = 1975-2) 0.4 0.2-1.2 [facility] HospitalAspartate Amino Transf (AST/SGOT) 2018-05-02 00:01:00* Test Item Value Reference Range Interpretation Comments Aspartate Amino Transf (AST/SGOT) (test code = Aspartate Amino Transf (AST/SGOT)) 19 5-34 [facility] HospitalAlanine Aminotransferase (ALT/SGPT) 2018-05-02 00:01:00* Test Item Value Reference Range Interpretation Comments Alanine Aminotransferase (ALT/SGPT) (test code = 1742-6) 31 0-55 [facility] HospitalTotal [id number] 00:01:00* Test Item Value Reference Range Interpretation Comments Total Protein (test code = 2885-2) 7.9 6.5-8.1 [facility] HospitalAlbumin2018-08-12 00:01:00* Test Item Value Reference Range Interpretation Comments Albumin (test code = 1751-7) 4.3 3.5-5.0 [facility] HospitalGlobulin2018-08-12 00:01:00* Test Item Value Reference Range Interpretation Comments Globulin (test code = 45048-4) 3.6 2.3-3.5 H [facility] HospitalAlbumin/Globulin [id number] 00:01:00 * Test Item Value Reference Range Interpretation Comments Albumin/Globulin Ratio (test code = 1759-0) 1.2 0.8-2.0 [facility] HospitalAlkaline [id number] 00:01:00* Test Item Value Reference Range Interpretation Comments Alkaline Phosphatase (test code = 6768-6) 94 40-150 [facility] HospitalCreatine [id number] 00:01:00* Test Item Value Reference Range Interpretation Comments Creatine Kinase (test code = 2157-6) 86 29-168 [facility] HospitalActivated Partial Thromboplast Time 2018-05-02 00:00:00* Test Item Value Reference Range Interpretation Comments Activated Partial Thromboplast Time (test code = 91199-2) 33.8 23.8-35.5 [facility] HospitalUrine [id number] 23:58:00* Test Item Value Reference Range Interpretation Comments Urine Color (test code = 5778-6) YELLOW YELLOW [facility] HospitalUrine [id number] 23:58:00* Test Item Value Reference Range Interpretation Comments Urine Clarity (test code = 25177-5) CLOUDY CLEAR H [facility] HospitalUrine Specific [id number] 23:58:00 * Test Item Value Reference Range Interpretation Comments Urine Specific Olive (test code = 5811-5) 1.005 1.010-1.02 5 L [facility] HospitalUrine pB4595-44-09 23:58:00* Test Item Value Reference Range Interpretation Comments Urine pH (test code = 58160-0) 6 5-7 [facility] Leukocyte Kclrroxy7656-36-62 23:58:00* Test Item Value Reference Range Interpretation Comments Urine Leukocyte Esterase (test code = 5799-2) NEGATIVE NEGATIVE [facility] Gqnlzbl0098-72-87 23:58:00* Test Item Value Reference Range Interpretation Comments Urine Nitrite (test code = 53003-4) NEGATIVE NEGATIVE [facility] Kbsdsgf4269-54-90 23:58:00* Test Item Value Reference Range Interpretation Comments Urine Protein (test code = 5804-0) NEGATIVE NEGATIVE [facility] Glucose (UA)2018-05-01 23:58:00* Test Item Value Reference Range Interpretation Comments Urine Glucose (UA) (test code = 2349-9) NEGATIVE NEGATIVE [facility] Hospital[facility] Sfyeoks6070-68-87 23:58:00* Test Item Value Reference Range Interpretation Comments Urine Ketones (test code = 13481-5) NEGATIVE NEGATIVE [facility] Ajarebmsmghz2891-20-91 23:58:00* Test Item Value Reference Range Interpretation Comments Urine Urobilinogen (test code = 39532-1) 0.2 0.2-1 [facility] Ynwzbztzw2772-10-54 23:58:00* Test Item Value Reference Range Interpretation Comments Urine Bilirubin (test code = 1978-6) NEGATIVE NEGATIVE [facility] HospitalU[facility] Yamil8792-65-34 23:58:00* Test Item Value Reference Range Interpretation Comments Urine Blood (test code = 83086-8) NEGATIVE NEGATIVE [facility] GRB5229-22-93 23:58:00* Test Item Value Reference Range Interpretation Comments Urine WBC (test code = 5821-4) 0-5 0-5 [facility] YOY2775-06-17 23:58:00* Test Item Value Reference Range Interpretation Comments Urine RBC (test code = 62337-2) 0-5 0-5 [facility] Iylmcpqp9736-33-66 23:58:00* Test Item Value Reference Range Interpretation Comments Urine Bacteria (test code = 00877-5) NONE NONE [facility] Epithelial Jvolp7693-34-60 23:58:00 * Test Item Value Reference Range Interpretation Comments Urine Epithelial Cells (test code = 73555-4) FEW NONE [facility] HospitalMagnesium Qrwbb8572-18-26 23:55:00* Test Item Value Reference Range Interpretation Comments Magnesium Level (test code = 72407-4) 2.1 1.3-2.1 [facility] HospitalProthrombin Zrqr0314-39-82 23:51:00* Test Item Value Reference Range Interpretation Comments Prothrombin Time (test code = 5902-2) 13.1 11.9-14.5 [facility] HospitalProthromb Time International Ratio 2018-05-01 23:51:00* Test Item Value Reference Range Interpretation Comments Prothromb Time International Ratio (test code = 6301-6) 1.07 Oral Anticoagulant Therapy INR Values:1. Low Intensity Therapy 1.5 - 2.02 . Moderate Intensity Therapy 2.0 - 3.03. High Intensity Therapy(1) 2.5 - 3. 54. High Intensity Therapy(2) 3.0 - 4.05. Panic Value INR > 5.0 [facility] HospitalWhite Blood Keldo7831-38-78 23:46:00* Test Item Value Reference Range Interpretation Comments White Blood Count (test code = 6690-2) 8.04 4.8-10.8 [facility] HospitalRed Blood Ikpqn0427-40-64 23:46:00* Test Item Value Reference Range Interpretation Comments Red Blood Count (test code = 789-8) 4.07 3.6-5.1 [facility] HospitalHemoglobin2018-08-11 23:46:00* Test Item Value Reference Range Interpretation Comments Hemoglobin (test code = 18434-8) 11.8 12.0-16.0 L [facility] HospitalHematocrit2018-08-11 23:46:00* Test Item Value Reference Range Interpretation Comments Hematocrit (test code = 4544-3) 36.1 34.2-44.1 [facility] HospitalMean Corpuscular Jgynmp1842-94-06 23:46:00* Test Item Value Reference Range Interpretation Comments Mean Corpuscular Volume (test code = 787-2) 88.7 81-99 [facility] HospitalMean Corpuscular Crxtgyjayy9783-66-33 23:46:00* Test Item Value Reference Range Interpretation Comments Mean Corpuscular Hemoglobin (test code = 785-6) 29.0 28-32 [facility] HospitalMean Corpuscular Hemoglobin Concent 2018-05-01 23:46:00* Test Item Value Reference Range Interpretation Comments Mean Corpuscular Hemoglobin Concent (test code = 786-4) 32.7 31-35 [facility] HospitalRed Cell Distribution Uyfzq2756-48-47 23:46:00* Test Item Value Reference Range Interpretation Comments Red Cell Distribution Width (test code = 95567-4) 13.3 11.7 -14.4 [facility] HospitalPlatelet Msftf3604-04-92 23:46:00* Test Item Value Reference Range Interpretation Comments Platelet Count (test code = 777-3) 269 140-360 [facility] HospitalNeutrophils (%) (Auto)2018-05-01 23:46:00 * Test Item Value Reference Range Interpretation Comments Neutrophils (%) (Auto) (test code = 92460-8) 53.7 38.7-80.0 [facility] HospitalLymphocytes (%) (Auto)2018-05-01 23:46:00 * Test Item Value Reference Range Interpretation Comments Lymphocytes (%) (Auto) (test code = 736-9) 32.7 18.0-39.1 [facility] HospitalMonocytes (%) (Auto)2018-05-01 23:46:00* Test Item Value Reference Range Interpretation Comments Monocytes (%) (Auto) (test code = 5905-5) 9.3 4.4-11.3 [facility] HospitalEosinophils (%) (Auto)2018-05-01 23:46:00 * Test Item Value Reference Range Interpretation Comments Eosinophils (%) (Auto) (test code = 713-8) 3.2 0.0-6.0 [facility] HospitalBasophils (%) (Auto)2018-05-01 23:46:00* Test Item Value Reference Range Interpretation Comments Basophils (%) (Auto) (test code = 706-2) 0.6 0.0-1.0 [facility] HospitalIM GRANULOCYTES %2018-05-01 23:46:00* Test Item Value Reference Range Interpretation Comments IM GRANULOCYTES % (test code = IM GRANULOCYTES %) 0.5 0.0- 1.0 [facility] HospitalNeutrophils # (Auto)2018-05-01 23:46:00* Test Item Value Reference Range Interpretation Comments Neutrophils # (Auto) (test code = 751-8) 4.3 2.1-6.9 [facility] HospitalLymphocytes # (Auto)2018-05-01 23:46:00* Test Item Value Reference Range Interpretation Comments Lymphocytes # (Auto) (test code = 62341-4) 2.6 1.0-3.2 [facility] HospitalMonocytes # (Auto)2018-05-01 23:46:00* Test Item Value Reference Range Interpretation Comments Monocytes # (Auto) (test code = 742-7) 0.8 0.2-0.8 [facility] HospitalEosinophils # (Auto)2018-05-01 23:46:00* Test Item Value Reference Range Interpretation Comments Eosinophils # (Auto) (test code = 711-2) 0.3 0.0-0.4 [facility] HospitalBasophils # (Auto)2018-05-01 23:46:00* Test Item Value Reference Range Interpretation Comments Basophils # (Auto) (test code = 704-7) 0.1 0.0-0.1 [facility] HospitalAbsolute Immature Granulocyte (auto 2018-05-01 23:46:00* Test Item Value Reference Range Interpretation Comments Absolute Immature Granulocyte (auto (janelle t code = Absolute Immature Granulocyte (auto) 0.04 0-0.1 [facility] - Treadmill MDQZ6170-67-11 22:36:00 [facility] [address] [address] Patient Name : RUI MAZARIEGOS MR #: [id number] : 1945 Age/Sex: 72/F Adm Physician : HETAL WILLINGHAM MD Admit Date : 04/23/18 Location : MED/SURG Room/Bed : [facility] REPORT: Cardiology Report DATE OF STUDY: April [...] ejection fraction 65%. DD: 02/2018 22:36 Job#: [id number] Signature Date Dictated By: ASHLI LIZARRAGA MD Transcribed By: SMEDS on <Electronically signed by ASHLI LIZARRAGA MD><<Signature on File>> 05/21/181952 COPY TO: Sodium Alyrp8058-62-82 05:09:00* Test Item Value Reference Range Interpretation Comments Sodium Level (test code = 2951-2) 138 136-145 [facility] HospitalPotassium Mkezv2839-48-27 05:09:00* Test Item Value Reference Range Interpretation Comments Potassium Level (test code = 2823-3) 4.3 3.5-5.1 [facility] HospitalChloride Ttqyp3432-39-67 05:09:00* Test Item Value Reference Range Interpretation Comments Chloride Level (test code = 2075-0) 104 98-107 [facility] HospitalCarbon Dioxide Tgjog6698-56-79 05:09:00* Test Item Value Reference Range Interpretation Comments Carbon Dioxide Level (test code = 2028-9) 25 22-29 [facility] HospitalAnion Nbj7907-23-70 05:09:00* Test Item Value Reference Range Interpretation Comments Anion Gap (test code = 61660-1) 13.3 8-16 [facility] HospitalBlood Urea Bnairepk0825-45-66 05:09:00* Test Item Value Reference Range Interpretation Comments Blood Urea Nitrogen (test code = 3094-0) 26 7-26 [facility] HospitalCreatinine2018-08-06 05:09:00* Test Item Value Reference Range Interpretation Comments Creatinine (test code = 2160-0) 1.09 0.57-1.11 [facility] HospitalBUN/Creatinine Adnof1740-32-18 05:09:00* Test Item Value Reference Range Interpretation Comments BUN/Creatinine Ratio (test code = 3097-3) 24 6-25 [facility] HospitalEstimat Glomerular Filtration Rate 2018-04-26 05:09:00* Test Item Value Reference Range Interpretation Comments Estimat Glomerular Filtration Rate (test code = 76278-8) 49 >60 L Ranges were taken from the National Kidney Disease Education Program and the [facility] literature.Reference ranges:60 or greater: Lcwuhl63-38 ( for 3 consecutive months): Chronic kidney disease 15 or less: Kidney failureMemorial Hermann Northeast HospitalGlucose Sfyjs6177-09-76 05:09:00* Test Item Value Reference Range Interpretation Comments Glucose Level (test code = WHT4072) 101 74-118 [facility] HospitalCalcium Cerdu0589-94-56 05:09:00* Test Item Value Reference Range Interpretation Comments Calcium Level (test code = 63142-7) 9.7 8.4-10.2 [facility] HospitalWhite Blood Cebwk3471-48-04 04:49:00* Test Item Value Reference Range Interpretation Comments White Blood Count (test code = 6690-2) 7.33 4.8-10.8 [facility] HospitalRed Blood Emrav4211-57-35 04:49:00* Test Item Value Reference Range Interpretation Comments Red Blood Count (test code = 789-8) 4.00 3.6-5.1 [facility] HospitalHemoglobin2018-08-06 04:49:00* Test Item Value Reference Range Interpretation Comments Hemoglobin (test code = 96348-5) 11.5 12.0-16.0 L [facility] HospitalHematocrit2018-08-06 04:49:00* Test Item Value Reference Range Interpretation Comments Hematocrit (test code = 4544-3) 35.4 34.2-44.1 [facility] HospitalMean Corpuscular Toilwc8264-53-00 04:49:00* Test Item Value Reference Range Interpretation Comments Mean Corpuscular Volume (test code = 787-2) 88.5 81-99 [facility] HospitalMean Corpuscular Mlshkslbng4946-46-46 04:49:00* Test Item Value Reference Range Interpretation Comments Mean Corpuscular Hemoglobin (test code = 785-6) 28.8 28-32 [facility] HospitalMean Corpuscular Hemoglobin Concent 2018-04-26 04:49:00* Test Item Value Reference Range Interpretation Comments Mean Corpuscular Hemoglobin Concent (test code = 786-4) 32.5 31-35 [facility] HospitalRed Cell Distribution Ughpk3475-11-37 04:49:00* Test Item Value Reference Range Interpretation Comments Red Cell Distribution Width (test code = 82292-1) 13.2 11.7 -14.4 [facility] HospitalPlatelet Jdrhr4677-88-20 04:49:00* Test Item Value Reference Range Interpretation Comments Platelet Count (test code = 777-3) 258 140-360 [facility] HospitalNeutrophils (%) (Auto)2018-04-26 04:49:00 * Test Item Value Reference Range Interpretation Comments Neutrophils (%) (Auto) (test code = 93745-2) 45.0 38.7-80.0 [facility] HospitalLymphocytes (%) (Auto)2018-04-26 04:49:00 * Test Item Value Reference Range Interpretation Comments Lymphocytes (%) (Auto) (test code = 736-9) 42.4 18.0-39.1 H [facility] HospitalMonocytes (%) (Auto)2018-04-26 04:49:00* Test Item Value Reference Range Interpretation Comments Monocytes (%) (Auto) (test code = 5905-5) 9.5 4.4-11.3 [facility] HospitalEosinophils (%) (Auto)2018-04-26 04:49:00 * Test Item Value Reference Range Interpretation Comments Eosinophils (%) (Auto) (test code = 713-8) 2.2 0.0-6.0 [facility] HospitalBasophils (%) (Auto)2018-04-26 04:49:00* Test Item Value Reference Range Interpretation Comments Basophils (%) (Auto) (test code = 706-2) 0.5 0.0-1.0 [facility] HospitalIM GRANULOCYTES %2018-04-26 04:49:00* Test Item Value Reference Range Interpretation Comments IM GRANULOCYTES % (test code = IM GRANULOCYTES %) 0.4 0.0- 1.0 [facility] HospitalNeutrophils # (Auto)2018-04-26 04:49:00* Test Item Value Reference Range Interpretation Comments Neutrophils # (Auto) (test code = 751-8) 3.3 2.1-6.9 [facility] HospitalLymphocytes # (Auto)2018-04-26 04:49:00* Test Item Value Reference Range Interpretation Comments Lymphocytes # (Auto) (test code = 02267-4) 3.1 1.0-3.2 [facility] HospitalMonocytes # (Auto)2018-04-26 04:49:00* Test Item Value Reference Range Interpretation Comments Monocytes # (Auto) (test code = 742-7) 0.7 0.2-0.8 [facility] HospitalEosinophils # (Auto)2018-04-26 04:49:00* Test Item Value Reference Range Interpretation Comments Eosinophils # (Auto) (test code = 711-2) 0.2 0.0-0.4 [facility] HospitalBasophils # (Auto)2018-04-26 04:49:00* Test Item Value Reference Range Interpretation Comments Basophils # (Auto) (test code = 704-7) 0.0 0.0-0.1 [facility] HospitalAbsolute Immature Granulocyte (auto 2018-04-26 04:49:00* Test Item Value Reference Range Interpretation Comments Absolute Immature Granulocyte (auto (janelle t code = Absolute Immature Granulocyte (auto) 0.03 0-0.1 [facility] HospitalTriglycerides Zxqjj5625-23-09 06:35:00* Test Item Value Reference Range Interpretation Comments Triglycerides Level (test code = 2571-8) 139 0-149 [facility] HospitalLDL Znopkrjyhmv7669-98-74 06:35:00* Test Item Value Reference Range Interpretation Comments LDL Cholesterol (test code = 2089-1) 99 60-130 [facility] HospitalTriglycerides Mjwpp0720-92-00 06:35:00* Test Item Value Reference Range Interpretation Comments Triglycerides Level (test code = 2571-8) 139 0-149 [facility] HospitalLDL Sodoowulspf1362-53-10 06:35:00* Test Item Value Reference Range Interpretation Comments LDL Cholesterol (test code = 2089-1) 99 60-130 [facility] HospitalCholesterol Nwbsg3455-78-01 05:46:00* Test Item Value Reference Range Interpretation Comments Cholesterol Level (test code = 2093-3) 177 0-199 Less than 200 mg/dL Low Rbod981 - 239 mg/dL Borderline Inob287 m g/dl and greater High Risk [facility] HospitalHDL Zephrhpcdoc6165-14-16 05:46:00* Test Item Value Reference Range Interpretation Comments HDL Cholesterol (test code = 2085-9) 50 40-60 [facility] HospitalCholesterol/HDL Cvzkt2781-54-95 05:46:00 * Test Item Value Reference Range Interpretation Comments Cholesterol/HDL Ratio (test code = 9830-1) 3.5 3.0-3.6 [facility] HospitalCholesterol Xkpgn4312-80-62 05:46:00* Test Item Value Reference Range Interpretation Comments Cholesterol Level (test code = 2093-3) 177 0-199 Less than 200 mg/dL Low Pdlo484 - 239 mg/dL Borderline Hvnu771 m g/dl and greater High Risk [facility] Nouvdniscem6182-97-60 05:46:00* Test Item Value Reference Range Interpretation Comments HDL Cholesterol (test code = 2085-9) 50 40-60 [facility] HospitalCholesterol/HDL Axqkm8931-61-79 05:46:00 * Test Item Value Reference Range Interpretation Comments Cholesterol/HDL Ratio (test code = 9830-1) 3.5 3.0-3.6 [facility] HospitalUS ABDOMEN UYCMZEQ8083-89-96 18:38:[address] [address] Patient Name: RUI MAZARIEGOS MR #: [id number] : Age/Sex: 72/F Req #: [id number] [facility] [place] Physician: HETAL LIRA MD Ordered by: HETAL WILLINGHAM MD Report #: [id number] Location: [facility] Room/Bed: [address] [address] Procedure: [id number] US/US ABD OMEN LIMITED Exam Date: 04/23/18 [...] MD 37 Transcribed By: EDDI on 04/23/181837 FOSTER WINDER Y TO: HETAL WILLINGHAM MD Total Lbfgrqeyh7579-79-33 08:07:00* Test Item Value Reference Range Interpretation Comments Total Bilirubin (test code = 1975-2) 0.3 0.2-1.2 [facility] HospitalAspartate Amino Transf (AST/SGOT) 2018-04-23 08:07:00* Test Item Value Reference Range Interpretation Comments Aspartate Amino Transf (AST/SGOT) (test code = Aspartate Amino Transf (AST/SGOT)) 17 5-34 [facility] HospitalAlanine Aminotransferase (ALT/SGPT) 2018-04-23 08:07:00* Test Item Value Reference Range Interpretation Comments Alanine Aminotransferase (ALT/SGPT) (test code = 1742-6) 14 0-55 [facility] HospitalTotal Jqffdgl5500-96-94 08:07:00* Test Item Value Reference Range Interpretation Comments Total Protein (test code = 2885-2) 6.9 6.5-8.1 [facility] HospitalAlbumin2018-08-03 08:07:00* Test Item Value Reference Range Interpretation Comments Albumin (test code = 1751-7) 3.7 3.5-5.0 [facility] HospitalGlobulin2018-08-03 08:07:00* Test Item Value Reference Range Interpretation Comments Globulin (test code = 90449-4) 3.2 2.3-3.5 [facility] HospitalAlbumin/Globulin Cspvu0148-61-87 08:07:00 * Test Item Value Reference Range Interpretation Comments Albumin/Globulin Ratio (test code = 1759-0) 1.2 0.8-2.0 [facility] HospitalAlkaline Xjrhxogdhtb5747-72-01 08:07:00* Test Item Value Reference Range Interpretation Comments Alkaline Phosphatase (test code = 6768-6) 71 40-150 [facility] HospitalCreatine Kinase SX0479-44-45 07:23:00* Test Item Value Reference Range Interpretation Comments Creatine Kinase MB (test code = 40854-1) 1.10 0-5.0 [facility] HospitalTroponin C5953-24-53 07:23:00* Test Item Value Reference Range Interpretation Comments Troponin I (test code = BUV1259) 0.006 0-0.300 [facility] HospitalCreatine Chhxne4405-51-09 07:16:00* Test Item Value Reference Range Interpretation Comments Creatine Kinase (test code = 2157-6) 78 29-168 [facility] HospitalB-Type Natriuretic Gqqyxag6386-29-49 23:38:00* Test Item Value Reference Range Interpretation Comments B-Type Natriuretic Peptide (test code = 02295-7) 195.2 0-100 H [facility] HospitalB-Type Natriuretic Fccixbq0327-75-49 23:38:00* Test Item Value Reference Range Interpretation Comments B-Type Natriuretic Peptide (test code = 40482-4) 195.2 0-100 H [facility] HospitalCHEST 2 TVFRB5486-62-76 23:33:00 [facility] [address] [address] Patient Name: RUI MAZARIEGOS MR #: [id number] : Age/Sex: 72/F Req #: [id number] Adm Physician: Ordered by: ALEYDA BARRON MD Report #: [id number] Location: ER Room/Bed: Procedure: [id number] DX/CHEST 2 VIEWS Exam Date: 11/08 Exam [...] 11:36 PM Dictated By: TOBI MELÉNDEZ MD 2336 Transcribed By: SOPHIE on 04/22 2336 COPY TO: ALEYDA BARRON MD Magnesium Ylkpl3776-67-16 23:29:00* Test Item Value Reference Range Interpretation Comments Magnesium Level (test code = 77021-4) 2.2 1.3-2.1 H [facility] HospitalUrine FPV2303-67-86 23:28:00* Test Item Value Reference Range Interpretation Comments Urine WBC (test code = 5821-4) 11-20 0-5 H [facility] HospitalUrine VWC5030-27-94 23:28:00* Test Item Value Reference Range Interpretation Comments Urine RBC (test code = 52714-4) 0-5 0-5 [facility] HospitalUrine Pusbigxm4436-38-69 23:28:00* Test Item Value Reference Range Interpretation Comments Urine Bacteria (test code = 45430-2) RARE NONE [facility] HospitalUrine Epithelial Aiqhx7737-33-49 23:28:00 * Test Item Value Reference Range Interpretation Comments Urine Epithelial Cells (test code = 85521-8) RARE NONE [facility] HospitalUrine Transitional Epithelial Cells 2018-04-22 23:28:00* Test Item Value Reference Range Interpretation Comments Urine Transitional Epithelial Cells (test code = 8249-5) FEW NONE H [facility] HospitalUrine Transitional Epithelial Cells 2018-04-22 23:28:00* Test Item Value Reference Range Interpretation Comments Urine Transitional Epithelial Cells (test code = 8249-5) FEW NONE H [facility] HospitalUrine Cesph5766-14-43 23:18:00* Test Item Value Reference Range Interpretation Comments Urine Color (test code = 5778-6) YELLOW YELLOW [facility] HospitalUrine Cqpmhbk7506-16-54 23:18:00* Test Item Value Reference Range Interpretation Comments Urine Clarity (test code = 57247-7) CLEAR CLEAR [facility] HospitalUrine Specific Yzijsyk4313-41-45 23:18:00 * Test Item Value Reference Range Interpretation Comments Urine Specific Olive (test code = 5811-5) 1.010 1.010-1.02 5 [facility] HospitalUrine zR0780-44-65 23:18:00* Test Item Value Reference Range Interpretation Comments Urine pH (test code = 77402-3) 6 5-7 [facility] HospitalUrine Leukocyte Abaonuyl8401-66-04 23:18:00* Test Item Value Reference Range Interpretation Comments Urine Leukocyte Esterase (test code = 5799-2) 1+ NEGATIVE H [facility] HospitalUrine Fsichmx2591-97-50 23:18:00* Test Item Value Reference Range Interpretation Comments Urine Nitrite (test code = 38545-6) NEGATIVE NEGATIVE [facility] HospitalUrine Guqhjnu6238-86-84 23:18:00* Test Item Value Reference Range Interpretation Comments Urine Protein (test code = 5804-0) NEGATIVE NEGATIVE [facility] HospitalUrine Glucose (UA)2018-04-22 23:18:00* Test Item Value Reference Range Interpretation Comments Urine Glucose (UA) (test code = 2349-9) NEGATIVE NEGATIVE [facility] HospitalUrine Hnzqjri9707-73-60 23:18:00* Test Item Value Reference Range Interpretation Comments Urine Ketones (test code = 31070-2) NEGATIVE NEGATIVE [facility] Pvhriyvescfm2299-75-70 23:18:00* Test Item Value Reference Range Interpretation Comments Urine Urobilinogen (test code = 16536-9) 0.2 0.2-1 [facility] Pkkyhiuoz0155-20-05 23:18:00* Test Item Value Reference Range Interpretation Comments Urine Bilirubin (test code = 1978-6) NEGATIVE NEGATIVE [facility] HospitalUrine Dhfuu1174-87-18 23:18:00* Test Item Value Reference Range Interpretation Comments Urine Blood (test code = 18897-9) NEGATIVE NEGATIVE [facility] HospitalProthrombin Xwtn2770-56-72 23:15:00* Test Item Value Reference Range Interpretation Comments Prothrombin Time (test code = 5902-2) 13.1 11.9-14.5 [facility] HospitalProthromb Time International Ratio 2018-04-22 23:15:00* Test Item Value Reference Range Interpretation Comments Prothromb Time International Ratio (test code = 6301-6) 1.07 Oral Anticoagulant Therapy INR Values:1. Low Intensity Therapy 1.5 - 2.02 . Moderate Intensity Therapy 2.0 - 3.03. High Intensity Therapy(1) 2.5 - 3. 54. High Intensity Therapy(2) 3.0 - 4.05. Panic Value INR > 5.0 [facility] HospitalActivated Partial Thromboplast Time 2018-04-22 23:15:00* Test Item Value Reference Range Interpretation Comments Activated Partial Thromboplast Time (test code = 30205-0) 33.9 23.8-35.5 [facility] [address] [address] Patient Name: RUI MAZARIEGOS MR #: [id number] : 1945 Age/Sex: 72/F Req #: [id number] Adm Physician: Ordered by: DUTCH SHERMAN MD Report #: [id number] Location: ER Room/Bed: Procedure: [id number] CT/CT BRAIN WO Exam Date: 01/05/18 Exam Time: 2224 REPORT STATUS: Signed Examination: CT BRAIN WITHOUT [...]
--- NOTE | 2020-03-03 12:00 | NUR ---
{null, COVID DONE }
[2020-03-03] MEDS ORDERED: LORAZEPAM INJ 2 MG/ML VIAL ONE (12:39)
[2020-03-03] MEDS ORDERED: LORAZEPAM INJ 2 MG/ML VIAL IV STA (12:44)
--- NOTE | 2020-03-03 13:30 | NUR ---
{null, RCD PT FROM ER BY BED PT IS ALERT AND ORIENTED RESTING ON BED VITALS CHECKED ,IV PATENT BY SALINE FLUSH ADMISSION ASSESSMENT AND HISTORY DONE INSTRUCTED PT HOSPITAL POLICY AND ROUTINE SPECIALLY IN VISITING POLICY BED LOW AND LOCKED CALL LIGHT IN REACH }
[2020-03-03 14:53] VITALS: BP 135/53
[2020-03-03 14:54] VITALS: BP 135/53
[2020-03-03 16:06] VITALS: BP 145/49
[2020-03-03] MEDS ORDERED: CEFTRIAXONE SOD 1 GM/NS 50 ML 50 ML IV SCH (17:45)
--- NOTE | 2020-03-03 18:44 | NUR ---
{null, pt resting on bed bed side report given to oncoming nurse }
--- NOTE | 2020-03-03 18:44 | NUR ---
{null, pt resting on bed bed side report given to oncoming nurse }
[2020-03-03] MEDS ORDERED: CLONIDINE HCL 0.1 MG TAB PO PRN (18:45)
--- NOTE | 2020-03-03 19:00 | NUR ---
{null, RECEIVED REPORT FROM DAY NURSE. PATIENT IS RESTING COMFORTABLY IN THE BED. BED IS IN THE LOWEST POSITION AND CALL LIGHT IS WITHIN REACH. WILL CONTINUE TO MONITOR PATIENT }
[2020-03-03] MEDS ORDERED: ACETAMINOPHEN 325 MG TAB PO PRN (19:15)
[2020-03-03] MEDS ORDERED: ONDANSETRON HCL INJ 2MG/ML 2ML 2 MG/ML VIAL IV PRN (19:15)
[2020-03-03 19:16] LABS: CREATINE KINASE MB 1.4 ng/mL (0-5.0)
[2020-03-03 20:25] VITALS: BP 139/58
--- NOTE | 2020-03-03 21:05 | Progress Note ---
DATE: 03/03/2020 Cardiology Consultation REASON FOR REQUEST: Hypertensive crisis. HISTORY OF PRESENT ILLNESS: Ms. Daisha Foster is a pleasant 74-year-old woman, well known to me with history of hypertension, dyslipidemia, morbid obesity, paroxysmal atrial fibrillation, and labile blood pressure, who presented with complaints of elevated blood pressure over 200 with some associated lightheadedness at that time. She has been admitted for further care. She has hypertensive heart disease with moderate LVH on previous echocardiogram, preserved left ventricular systolic function as well as a reassuring stress test result done as outpatient. She has been on anticoagulation with Eliquis for thromboembolic risk prevention in the setting of atrial fibrillation. She feels better overall today. However, blood pressures are still ranging in the 140s to 180s at this point in time. REVIEW OF SYSTEMS: A 12-system review negative except for as noted above. PAST MEDICAL HISTORY: As per HPI. ALLERGIES: TO CEPHALEXIN, PENICILLIN, AZITHROMYCIN, IBUPROFEN, AND METFORMIN. SOCIAL HISTORY: No active smoking, alcohol, or drugs. FAMILY HISTORY: Noncontributory. PHYSICAL EXAMINATION: VITAL SIGNS: Temperature 98.2, heart rate 71, respiratory rate 16, blood pressure 145/49, and O2 saturation 98% on room air. GENERAL: No acute distress. Alert. NECK: No JVD. CHEST: Clear to auscultation. CARDIOVASCULAR: Irregularly irregular rate and rhythm. Normal S1 and S2. Systolic ejection murmur. No S3. No S4. ABDOMEN: Soft. Bowel sounds positive. EXTREMITIES: No edema. CARDIOVASCULAR MEDICATIONS: Reviewed. STUDIES: Reviewed, significant as follows: White blood cells 15.4, hemoglobin 13.8, and platelets 367. Sodium 137, potassium 4.4, bicarbonate 23, BUN 29, creatinine 1.1, and glucose 147. AST 19, ALT 21, and alkaline phosphatase 89. Troponin I 0.004. Urinalysis remarkable for white blood cells 6-10. Coronavirus PCR pending. Chest x-ray, no acute thoracic abnormality. Telemetry, atrial fibrillation with controlled ventricular response. ASSESSMENT AND PLAN: 1. Hypertensive crisis, urgency type. 2. Paroxysmal atrial fibrillation. 3. Dyslipidemia. 4. Morbid obesity. 5. Anxiety. RECOMMEND: 1. Resume home amlodipine and lisinopril. 2. Resume metoprolol. 3. P.r.n. clonidine. 4. Consider Rx for UTI. 5. We will follow closely with you. MD ALISIA Velasquez/ZENOBIA /[id number]
[2020-03-03] MEDS: AMLODIPINE BESYLATE 10 MG TAB PO SCH (21:59)
[2020-03-03] MEDS: TRIMETHOPRIM/SULFAMETHOXAZOLE 160-800 MG TAB PO SCH (22:00)
[2020-03-03] MEDS: APIXABAN 5 MG TABLET PO SCH (22:00)
[2020-03-04 01:00] VITALS: BP 183/69
[2020-03-04 01:35] VITALS: BP 183/69
[2020-03-04 04:52] VITALS: BP 147/63
[2020-03-04 05:44] LABS: BASOPHILS % 0.4 % (0.0-1.0); EOSINOPHILS # (AUTO) 0.1 (0.0-0.4); EOSINOPHILS % 0.6 % (0.0-6.0); HEMATOCRIT 39.2 % (34.2-44.1); HEMOGLOBIN 12.4 g/dL (12.0-16.0); LYMPHOCYTES # (AUTO) 2.7 (1.0-3.2); LYMPHOCYTES % 26.7 % (18.0-39.1); MEAN CORPUSCULAR HEMOGLOBIN 28.6 pg (28-32); MEAN CORPUSCULAR HGB CONC 31.6 g/dL (31-35); MEAN CORPUSCULAR VOLUME 90.5 fL (81-99); MONOCYTES # (AUTO) 0.8 (0.2-0.8); MONOCYTES % 7.4 % (4.4-11.3); NEUTROPHILS # (AUTO) 6.6 (2.1-6.9); NEUTROPHILS % 64.4 % (38.7-80.0); PLATELET COUNT 322 x10e3/uL (140-360); RED BLOOD COUNT 4.33 x10e6/uL (3.6-5.1); RED CELL DISTRIBUTION WIDTH 13.6 % (11.7-14.4)
[2020-03-04 06:20] LABS: CREATINE KINASE MB 1.4 ng/mL (0-5.0)
[2020-03-04 06:36] LABS: CHOL/HDL RATIO 3.3 (3.0-3.6); MAGNESIUM 2.1 MG/DL (1.3-2.1); PHOSPHORUS 3.3 MG/DL (2.3-4.7)
--- NOTE | 2020-03-04 06:52 | NUR ---
{null, patient is resting comfortably in the bed. bed is in the lowest position and call light is within reach. }
--- NOTE | 2020-03-04 07:05 | NUR ---
{null, RCD PT AT BED PT IS ALERT AND ORIENTED RESTING ON BED IV PATENT BY SALINE FLUSH BED LOW AND LOCKED CALL LIGHT IN REACH }
[2020-03-04 07:12] LABS: THYROID STIMULATING HORMONE 0.851 uIU/mL (0.350-4.940)
[2020-03-04 08:08] VITALS: BP 159/82
[2020-03-04 08:30] VITALS: BP 159/82
[2020-03-04 08:37] LABS: ALBUMIN 3.8 g/dL (3.5-5.0); ALBUMIN/GLOBULIN RATIO 1.1 (0.8-2.0); ANION GAP 16.2 mmol/L (8-16); CALCIUM 9.6 mg/dL (8.4-10.2); CREATININE, SERUM 1.12 mg/dL (0.57-1.11); POTASSIUM 4.2 mmol/L (3.5-5.1)
[2020-03-04] MEDS ORDERED: ASCORBIC ACID 500 MG TAB PO SCH (09:00)
[2020-03-04] MEDS: TRIMETHOPRIM/SULFAMETHOXAZOLE 160-800 MG TAB PO SCH (09:00)
[2020-03-04] MEDS ORDERED: LISINOPRIL 10 MG TAB PO SCH (09:00)
[2020-03-04] MEDS ORDERED: AMLODIPINE BESYLATE 10 MG TAB PO SCH (09:00)
[2020-03-04] MEDS: AMLODIPINE BESYLATE 10 MG TAB PO SCH (09:00)
[2020-03-04] MEDS: APIXABAN 5 MG TABLET PO SCH (09:00)
[2020-03-04] MEDS ORDERED: METOPROLOL TARTRATE 25 MG TAB PO SCH (09:00)
[2020-03-04 11:43] VITALS: BP 154/66
[2020-03-04] MEDS ORDERED: ELIQUIS5 MG PO (12:28)
[2020-03-04] MEDS ORDERED: NORVASC10 MG PO (12:28)
[2020-03-04] MEDS ORDERED: BACTRIM DS TAB1 EACH PO (12:46)
[2020-03-04] MEDS ORDERED: ASCORBIC ACID500 MG PO (12:48)
--- NOTE | 2020-03-04 14:14 | NUR ---
{null, PATIENT WENT HOME IN SAFE CONDITION WITH HER SON }
--- NOTE | 2020-03-05 12:28 | Discharge Summary ---
CONSULTING PHYSICIAN: Dr. Kurtis Silva. CHIEF COMPLAINT: High blood pressure at night. HISTORY OF PRESENT ILLNESS: The patient is a 74-year-old female, who admitted for dizziness and elevated blood pressure. According to the documentation from the emergency department, the patient reported blood pressure very high at night over the past few weeks 150s on 03/02 and then the night prior to admission 180s systolic and not improving. It was then 203/72 at 7 a.m. on 03/03 and the patient went there via ambulance to the emergency department to seek medical attention. She denied any dizziness at any time. Currently, associated symptom was malaise. PAST MEDICAL HISTORY: Hyperlipidemia, nocturnal hypertension, GERD, anxiety, obesity, hiatal hernia, osteoarthritis, atrial fibrillation, Eliquis has been used for atrial fibrillation. She had a normal nuclear myocardial perfusion scan with ejection fraction of 65% on 04/26/2018. PAST SURGICAL HISTORY: Coccygectomy. FAMILY HISTORY: Mother had heart problems. Dad had emphysema. Brother had bone cancer. SOCIAL HISTORY: Denies any prior history of tobacco, alcohol, or illicit drugs. ALLERGIES: SHE DOES HAVE MULTIPLE ALLERGIES INCLUDING METFORMIN, AZITHROMYCIN, IBUPROFEN, PENICILLIN, CEPHALEXIN MONOHYDRATE. ADMITTING DIAGNOSES: 1. Nocturnal hypertension/hypertensive urgency. 2. Chronic atrial fibrillation on long-term use of anticoagulant Eliquis. 3. Acute urinary tract infection, POA. 4. Mild acute dehydration. 5. Anxiety. 6. Hyperlipidemia. 7. Hyperglycemia. 8. GERD. DISCHARGE DIAGNOSES: 1. Nocturnal hypertension/hypertensive urgency. 2. Chronic atrial fibrillation on long-term use of anticoagulant Eliquis. 3. Acute urinary tract infection, POA. 4. Mild acute dehydration. 5. Anxiety. 6. Hyperlipidemia. 7. Hyper glycemia. 8. GERD. The patient was seen and evaluated by her outpatient beauty shop manager, who is consulted on this case, Dr. Alberts and made changes to her medication. She will continue to be on clonidine 0.1 mg p.o. b.i.d., metoprolol, Lopressor 25 mg b.i.d., lisinopril 40 mg daily and she will continue her Eliquis 5 mg b.i.d. for the atrial fibrillation. Amlodipine besylate 5 mg q.12 hours has been added. We will send her home with a prescription for that. When I saw the patient this morning she still has some malaise the same as yesterday, feels tired, shaky, depressed, but overall is in no acute distress, no change in physical examination. Her echocardiogram today showed an ejection fraction of 55%. Her 12-lead EKG had shown normal sinus rhythm with a heart rate of 65. Coronavirus test by PCR remains pending. Her urinalysis showed a small amount of blood, small amount leukocyte esterase, WBC 6-10, few bacteria. Her white blood cell count had been 15.4 when she came in however this quickly decreased to 15.4 while on Bactrim, thus we will send her home with a prescription for Bactrim as well. Cardiac enzymes were within normal limits. Also include vitamin C and her discharge prescription. Today temperature 98.3, heart rate 78, blood pressure 159/82, respirations 16, oxygen saturation 100%. Sodium 140, potassium 4.2, chloride 106, CO2 22, anion gap 16.2, BUN 21, creatinine 1.12, estimated GFR 47, glucose 172, calcium 9.6. Hemoglobin A1c was 6.0%, phosphorus 3.3, magnesium 2.1, total bilirubin 0.4, AST 18, ALT 19, alkaline phosphatase 74, total protein 7.2, albumin 3.8, triglycerides 86, cholesterol 166, LDL 99, HDL 50. WBC 10.28, hemoglobin 12.4, hematocrit 39.2, platelets 322,000. Although urinalysis was not sent for culture and sensitivity the patient is improving with her white blood cell count. Blood pressure readings this morning are 147/63, 159/82, and 154/66. The patient will be discharged home on cardiac diet. Activity level as tolerated. Follow up with her PCP, Dr. Ness in [place]. Follow up with him in 1 to 2 weeks. Follow up with Dr. Alberts in his office as directed. Dictated by Sam Duffy, AUREA MD ETHAN FlorP/MODL /[id number]
== END 2020-03-04 14:14 | disposition home or self-care (01) ==
LOC: ER 08:37 → ERHOLD 10:37 → MED/SURG2 13:57
PROVIDERS: ADMIT Internal Medicine; ATTEND Internal Medicine
DX: I16.0 Hypertensive urgency (principal); R42 Dizziness and giddiness; I10 Essential (primary) hypertension; N39.0 Urinary tract infection, site not specified; E86.0 Dehydration; F41.9 Anxiety disorder, unspecified; E78.5 Hyperlipidemia, unspecified; E16.2 Hypoglycemia, unspecified; K21.9 Gastro-esophageal reflux disease without esophagitis; I48.0 Paroxysmal atrial fibrillation; E66.01 Morbid (severe) obesity due to excess calories; Z88.0 Allergy status to penicillin; Z88.8 Allergy status to other drugs, medicaments and biological substances; Z79.01 Long term (current) use of anticoagulants; Z68.30 Body mass index [BMI] 30.0-30.9, adult
CPT/HCPCS: 36415 ×2; 71045; 80053 ×2; 80061; 81001; 82550 ×2; 82553 ×2; 83036; 83735; 84100; 84443; 84484 ×2; 85025 ×2; 87635; 93005; 93306; 97116; 97161; 99285; G0378 ×2; J0360; J2060; J7030